=== PATIENT | male | born 1940 | race Caucasian/White ===

== ENCOUNTER 2016-11-17 03:12 | Observation (INO) | payer MEDICARE, BC ==
[~2016-11-17] VITALS: Ht 167.6 cm; Wt 118.0 kg
[2016-11-17] VITALS (8 sets, daily range): BP systolic 138–189; BP diastolic 64–89; PULSE 72–87; RESP 18–20; TEMP 97.2–97.7; O2SAT 97–99
[~2016-11-17 03:12] MED LIST: ALLO100T PO; APRE1TAB3; ASPI81TA81; ATOR40TA16 PO; CLOP75TA PO; FINA5TAB2 PO; FURO20TA PO; GABA300C5 PO; LEVO50TA4 PO; LISI-515 PO; METF500T PO; MOBI15TA PO; PANT40TA3 PO; PLAV75TA29 PO; POTA10TA8 PO; PROS5TAB PO; TAMS0.4C4 PO
[2016-11-17] MEDS ORDERED: SODIUM CHLORIDE 0.9% FLUSH 5 ML FLUSH IVF PRN ×2 (03:45→07:45)
--- NOTE | 2016-11-17 04:09 | RADHPO ---
EXAM DATE/TIME: 11/17/2016 03:50 [facility] COMPARISON: No previous studies available for comparison. INDICATIONS : Chest pains. MEDICAL HISTORY : Cardiovascular disease. SURGICAL HISTORY : Three cardiac stents placed in 2013 ENCOUNTER: Initial ACUITY: 3 days PAIN SCORE: 7/10 LOCATION: Right chest and lower ribs. FINDINGS: There is some ill-defined areas of infiltrate in the medial left lower lung. No focal consolidation. The right lung is clear. The heart is upper limits normal size. CONCLUSION: Non-consolidative infiltrate medial left lower lung. Jones Candelario MD on November 17, 2016 at 4:06 Board Certified Radiologist. This report was verified electronically.
--- NOTE | 2016-11-17 04:23 | PD ---
HPI Chief Complaint: Chest Pain Time Seen by Provider: 03:30 Travel History International Travel<30 days: No Contact w/Intl Traveler<30days: No Traveled to known affect area: No History of Present Illness HPI Is a 76-year-old man who presents emergency room complaining of right sided rib pain radiating into the back starting tonight. Patient has a history of CAD. He is pretty significant exercise intolerance and shortness of breath with exertion at baseline. He states he gets short of breath walking just across the room. This is been the same for some time and has been unchanged recently. Patient had normal health throughout the day yesterday. Starting yesterday evening started getting his right sided rib cage pain. No real clear aggravating or alleviating factors. He states he was severe enough that it kept him up and so he came to the emergency department today. Patient sees Dr. Salinas, he had a nuclear stress test done about 1 month ago that was reportedly negative. No history of blood clots. No other complaints. History Past Medical History Narrative Medical CAD, history of stents in 2013 Borderline diabetes mellitus BPH hyperlipidemia Hypothyroidism Psoriasis Gout Tetanus Vaccination: Unknown Influenza Vaccination: Yes Social History Alcohol Use: No Tobacco Use: No Allergies-Medications (Allergen,Severity, Reaction): Coded Allergies: No Known Allergies (Unverified , 11/17/16) Reported Meds & Prescriptions Reported Meds & Active Scripts Active Reported Otezla (Apremilast) 30 Mg Tab Tamsulosin (Tamsulosin HCl) 0.4 Mg Cap 0.4 Mg PO HS Mobic (Meloxicam) 15 Mg Tab 15 Mg PO DAILY Pantoprazole (Pantoprazole Sodium) 40 Mg Tab 40 Mg PO DAILY Allopurinol 100 Mg Tab 100 Mg PO DAILY Furosemide 20 Mg Tab 20 Mg PO DAILY Finasteride 5 Mg Tab 5 Mg PO DAILY Do not crush. Clopidogrel (Clopidogrel Bisulfate) 75 Mg Tab 75 Mg PO DAILY Gabapentin 300 Mg Cap 300 Mg PO BID Aspir-81 (Aspirin) 81 Mg Tabdr Potassium Chloride CR (Potassium Chloride) 10 Meq Tab 10 Meq PO DAILY Levothyroxine (Levothyroxine Sodium) 50 Mcg Tab 50 Mcg PO DAILY Atorvastatin (Atorvastatin Calcium) 40 Mg Tab 40 Mg PO HS Metformin (Metformin HCl) 500 Mg Tab 500 Mg PO DAILY With a meal Lisinopril 20 Mg Tab 20 Mg PO DAILY Review of Systems Except as stated in HPI: all other systems reviewed are Neg Physical Exam Narrative GENERAL: Well-appearing 76 year-old woman, no acute distress. SKIN: Warm and dry. HEAD: Atraumatic. Normocephalic. NECK: Trachea midline. No JVD. CARDIOVASCULAR: Regular rate and rhythm. No murmur appreciated. RESPIRATORY: No accessory muscle use. Clear to auscultation. Breath sounds equal bilaterally. GASTROINTESTINAL: Abdomen is obese and soft. There is no real right upper quadrant tenderness. Negative Bay's. MUSCULOSKELETAL: No obvious deformities. No edema. NEUROLOGICAL: Awake and alert. No obvious cranial nerve deficits. Motor grossly within normal limits. Normal speech. PSYCHIATRIC: Appropriate mood and affect; insight and judgment normal. Data Data Last Documented VS Vital Signs Date Time Temp Pulse Resp B/P Pulse Ox O2 Delivery O2 Flow Rate FiO2 11/17/16 03:40 87 18 98 Room Air 11/17/16 03:30 97.7 189/75 Orders Electrocardiogram (11/17/16 03:41) Complete Blood Count With Diff (11/17/16 03:41) Comprehensive Metabolic Panel (11/17/16 03:41) Magnesium (Mg) (11/17/16 03:41) Prothrombin Time / Inr (Pt) (11/17/16 03:41) Act Partial Throm Time (Ptt) (11/17/16 03:41) Troponin I (11/17/16 03:41) Lipase (11/17/16 03:41) Chest, Single Ap (11/17/16 03:41) Ecg Monitoring (11/17/16 03:41) Bilateral Bp Monitoring (11/17/16 03:41) Iv Access Insert/Monitor (11/17/16 03:41) Oximetry (11/17/16 03:41) Oxygen Administration (11/17/16 03:41) Sodium Chloride 0.9% Flush (Ns Flush) (11/17/16 03:45) Ed Poc Ultrasound (11/17/16 03:41) Us Abdomen Gallbladder (11/17/16 ) MDM Medical Decision Making Medical Screen Exam Complete: Yes Emergency Medical Condition: Yes Interpretation(s) My review of EKG: Sinus rhythm at a rate of 89, inferior Q waves, leftward axis , anterior septal Q waves, no definite evidence of acute ischemia. Differential Diagnosis Chest pain, ACS, hepatobiliary disease, shingles, other Narrative Course Medical decision making INITIAL: 76 year-old woman who presents to the emergency department complaining of right sided chest wall pain, the costal margin, radiating through the back. Symptoms came on tonight. Somewhat suggestive of hepatobiliary disease. I tend to the point of care ultrasound was able to see anything. We'll check labs , ultrasound gallbladder, x-ray, EKG, likely admission for serial cardiac enzymes. Recent stress test was negative. Procedures Procedure Narrative Point of care ultrasound: Focus transabdominal ultrasounds perform immediate the bedside to evaluate for possible hepatobiliary disease. Is unable to obtain any kind of adequate views. Dewayne Morales MD Nov 17, 2016 04:23
[2016-11-17 04:30] LABS: AUTOMATED NEUTROPHIL # 3.8 TH/MM3 (1.8-7.7); BASOPHIL % 0.6 % (0.0-2.0); EOSINOPHIL # 0.2 TH/MM3 (0-0.4); EOSINOPHIL % 3.2 % (0.0-4.0); HEMATOCRIT 42.6 % (39.0-51.0); HEMO FLAGS DIFF FINAL; LYMPH % 29.8 % (9.0-44.0); MEAN CORPUSCULAR HEMOGLOBIN 29.4 PG (27.0-34.0); MONO % 11.4 % (0.0-8.0); PLATELET COUNT 170 TH/MM3 (150-450); RED BLOOD COUNT 4.78 MIL/MM3 (4.50-5.90); RED CELL DISTRIBUTION WIDTH 13.2 % (11.6-17.2); WHITE BLOOD COUNT 6.8 TH/MM3 (4.0-11.0)
[2016-11-17 04:32] LABS: CHLORIDE 110 MEQ/L (98-107); POTASSIUM 4.3 MEQ/L (3.5-5.1); SODIUM (NA) 143 MEQ/L (136-145)
[2016-11-17 04:37] LABS: ANION GAP 8 MEQ/L (5-15); APTT (PATIENT) 28.3 SEC (24.3-30.1); BICARBONATE 24.7 MEQ/L (21.0-32.0); BLOOD UREA NITROGEN 25 MG/DL (7-18); MAGNESIUM 1.8 MG/DL (1.5-2.5); PROTHROMBIN TIME - PATIENT 10.7 SEC (9.8-11.6)
[2016-11-17 04:39] LABS: ALT (GPT) 27 U/L (12-78)
[2016-11-17 04:40] LABS: AST (GOT) 20 U/L (15-37); GLOMERULAR FILTRATION RATE 45 ML/MIN (>89)
[2016-11-17 04:41] LABS: TOTAL BILIRUBIN ADULT 0.5 MG/DL (0.2-1.0)
[2016-11-17 04:43] LABS: ALKALINE PHOSPHATASE 71 U/L (45-117)
[2016-11-17] MEDS ORDERED: NITROGLYCERIN 0.4 MG SL 25 TABS/BTL SL ONE (06:00)
[2016-11-17] MEDS ORDERED: MORPHINE SULFATE 4 MG/ML INJ IV PUSH ONE (06:00)
--- NOTE | 2016-11-17 07:00 | RADHPO ---
EXAM DATE/TIME: 11/17/2016 06:08 [facility] COMPARISON: No previous studies available for comparison. INDICATIONS : Right upper quadrant pain. MEDICAL HISTORY : Hypertension. Gastroesophageal reflux disease. Thyroid disease. Coronary artery disease. Peripheral vascular disease. Arthritis. Diabetes. SURGICAL HISTORY : Spinal surgery. Coronary stent. ENCOUNTER: Initial ACUITY: 1 day PAIN SCORE: 3/10 LOCATION: Right upper quadrant TECHNOLOGIST IMPRESSION: MEASUREMENTS: LIVER: 15.6 cm length COMMON DUCT: 5 mm RIGHT KIDNEY: 13.8 x 6.2 x 5.0 cm FINDINGS: LIVER: Homogeneous echotexture without focal lesion or ductal dilatation. COMMON DUCT: No intraluminal mass or stone visualized. GALLBLADDER: Contains no stones, demonstrates no wall thickening or pericholecystic fluid. PANCREAS: The visualized portions are within normal limits. RIGHT KIDNEY: No evidence of hydronephrosis, stone, or mass. CONCLUSION: No gallstones seen. Normal dimension common hepatic duct. Jones Candelario MD on November 17, 2016 at 6:58 Board Certified Radiologist. This report was verified electronically.
[2016-11-17] MEDS ORDERED: ACETAMINOPHEN 500 MG CPLT PO PRN (07:45)
[2016-11-17] MEDS ORDERED: ONDANSETRON HCL 4 MG/2 ML VIAL IV PRN (07:45)
[2016-11-17] MEDS ORDERED: NITROGLYCERIN 0.4 MG SL 25 TABS/BTL SL PRN (07:45)
[2016-11-17] MEDS ORDERED: MORPHINE SULFATE 4 MG/ML INJ IV PRN (07:45)
[2016-11-17] MEDS ORDERED: ACETAMINOPHEN/HYDROcodone 325 MG/7.5 MG TAB PO PRN (07:45)
--- NOTE | 2016-11-17 08:17 | HHI.HP ---
[facility] Jackson Alberts DO Admission Diagnosis chest pain Diagnoses: (1) Atypical chest pain Diagnosis: Principal (2) Hypertensive urgency Diagnosis: Principal (3) Renal failure Diagnosis: Principal Chief Complaint: chest pain Travel History International Travel<30 Days: No Contact w/Intl Traveler <30 Da: No Traveled to Known Affected Are: No History of Present Illness 76-year-old male with history of coronary artery disease s/p stents in 2013, hypertension, hyperlipidemia, borderline diabetes mellitus, hypothyroidism, BPH, gout, arthritis, psoriasis is admitted to chest pain center. Patient states that he initially started to have pain across the entire anterior chest on Saturday but it was intermittent at that time. It started when he had just gotten up from bed. He states that yesterday at 4:30 PM when he was lying down he started to experience sharp pain starting over the right scapula radiating into the right chest. He states it has been constant since that time progressively worsening which prompted him to come to the ED. Patient states that his pain at worst was a 10/10. He does have a Nitrostat prescription at home but did not take this at home. He did receive nitroglycerin in the ED and it is documented that it relieved his pain from a 7 to a 3 but the patient does not recall receiving nitroglycerin. He states he did have relief with morphine. Pain is currently a 4/10. He denies any diaphoresis, new numbness/tingling, or pain radiating to the neck/jaws/arms. He denies any pleuritic pain. He admits to chronic shortness of breath on exertion as well as chronic leg swelling but denies leg swelling being any worse than normal. He denies any current shortness of breath although his states he was breathing heavy early this morning. Denies orthopnea or PND. Denies symptoms occurring after eating. He denies any fevers or chills, cold or cough symptoms, abdominal pain, nausea, or vomiting. Denies any history of DVT or PE, recent sedentary travel, trauma/surgery/hospitalization in the last 12 weeks, hemoptysis, or recent immobilization of the legs. Patient 's water taxi captain is Dr. Salinas and he had a nuclear stress test done approximately one month ago which was negative. Review of Systems Constitutional: DENIES: Diaphoretic episodes, Fever, Chills, Dizziness Eyes: DENIES: Blurred vision Ears, nose, mouth, throat: DENIES: Throat pain, Ear Pain, Running Nose Respiratory: DENIES: Cough Cardiovascular: COMPLAINS OF: Chest pain, Dyspnea on Exertion (chronic), Lower Extremity Edema (chronic), DENIES: PND, Orthopnea Gastrointestinal: DENIES: Abdominal pain, Nausea, Vomiting Genitourinary: DENIES: Urinary frequency, Dysuria Musculoskeletal: COMPLAINS OF: Back pain, DENIES: Neck pain Integumentary: COMPLAINS OF: Rash (psoriasis) Neurologic: DENIES: Headache, Paresthesias (no new; chronic in feet) Past Family Social History Past Medical History CAD with stents Borderline diabetes mellitus Hyperlipidemia Hypertension Hypothyroidism BPH Arthritis Psoriasis Past Surgical History Total of 3 coronary artery stents placed in 2013. Surgery lumbar spine 2001, spinal stenosis Reported Medications Otezla (Apremilast) 30 Mg Tab 30 Mg PO BID Aspir-81 (Aspirin) 81 Mg Tabdr 81 Mg PO DAILY Tamsulosin (Tamsulosin HCl) 0.4 Mg Cap 0.4 Mg PO HS Mobic (Meloxicam) 15 Mg Tab 15 Mg PO DAILY Pantoprazole (Pantoprazole Sodium) 40 Mg Tab 40 Mg PO DAILY Allopurinol 100 Mg Tab 100 Mg PO DAILY Furosemide 20 Mg Tab 20 Mg PO DAILY Finasteride 5 Mg Tab 5 Mg PO DAILY Do not crush. Clopidogrel (Clopidogrel Bisulfate) 75 Mg Tab 75 Mg PO DAILY Gabapentin 300 Mg Cap 300 Mg PO BID Potassium Chloride CR (Potassium Chloride) 10 Meq Tab 10 Meq PO DAILY Levothyroxine (Levothyroxine Sodium) 50 Mcg Tab 50 Mcg PO DAILY Atorvastatin (Atorvastatin Calcium) 40 Mg Tab 40 Mg PO HS Metformin (Metformin HCl) 500 Mg Tab 500 Mg PO DAILY With a meal Lisinopril 20 Mg Tab 20 Mg PO DAILY Allergies: Coded Allergies: No Known Allergies (Unverified , 11/17/16) Family History Brother: CABG in his 50s with "12-13" coronary artery stents; still living at age 60. Brother: at age 38 of pulmonary embolus. Mother: Gallbladder issues, stroke. Social History Occasional alcohol use. Denies any history of cigarette smoking. Denies any history of illicit drug use. Physical Exam Vital Signs Vital Signs Date Time Temp Pulse Resp B/P Pulse Ox O2 Delivery O2 Flow Rate FiO2 11/17/16 06:57 79 20 156/78 98 Room Air 11/17/16 06:53 79 98 Room Air 11/17/16 06:13 74 18 138/78 97 Room Air 11/17/16 05:36 78 18 150/75 97 Room Air 11/17/16 04:16 148/64 161/76 11/17/16 03:40 87 18 98 Room Air 11/17/16 03:30 97.7 87 18 189/75 98 Physical Exam GENERAL: This is a well-nourished, well-developed patient, in no apparent distress. SKIN: Psoriatic rash over the umbilicus and abdomen. Skin tags over the right lateral chest but no evidence of vesicular lesions. HEAD: Atraumatic. Normocephalic. EYES: No scleral icterus. y patent. NECK: Trachea midline. No JVD. CHEST: Reproducible tenderness over the right anterior chest and muscles overlying the right scapula. CARDIOVASCULAR: Regular rate and rhythm without murmurs, gallops, or rubs. RESPIRATORY: Clear to auscultation. Breath sounds equal bilaterally. No wheezes , rales, or rhonchi. GASTROINTESTINAL: Normoactive bowel sounds LLQ. Abdomen soft, non-tender. Negative Bay's sign. No guarding. MUSCULOSKELETAL: Trace ankle edema bilaterally, no pitting. NEUROLOGICAL: Awake and alert. Normal speech. PSYCHIATRIC: Normal mood and affect. Insight and judgement normal. Laboratory Laboratory Tests Test 11/17/16 04:00 White Blood Count 6.8 Red Blood Count 4.78 Hemoglobin 14.1 Hematocrit 42.6 Mean Corpuscular Volume 89.0 Mean Corpuscular Hemoglobin 29.4 Mean Corpuscular Hemoglobin 33.0 Concent Red Cell Distribution Width 13.2 Platelet Count 170 Mean Platelet Volume 8.6 Neutrophils (%) (Auto) 55.0 Lymphocytes (%) (Auto) 29.8 Monocytes (%) (Auto) 11.4 Eosinophils (%) (Auto) 3.2 Basophils (%) (Auto) 0.6 Neutrophils # (Auto) 3.8 Lymphocytes # (Auto) 2.0 Monocytes # (Auto) 0.8 Eosinophils # (Auto) 0.2 Basophils # (Auto) 0.0 CBC Comment DIFF FINAL Differential Comment Prothrombin Time 10.7 Prothromb Time International 1.0 Ratio Activated Partial 28.3 Thromboplast Time Sodium Level 143 Potassium Level 4.3 Chloride Level 110 Carbon Dioxide Level 24.7 Anion Gap 8 Blood Urea Nitrogen 25 Creatinine 1.50 Estimat Glomerular Filtration 45 Rate Random Glucose 115 Calcium Level 8.7 Magnesium Level 1.8 Total Bilirubin 0.5 Aspartate Amino Transf 20 (AST/SGOT) Alanine Aminotransferase 27 (ALT/SGPT) Alkaline Phosphatase 71 Troponin I LESS THAN 0.02 Total Protein 7.2 Albumin 3.2 Lipase 94 Result Diagram: 11/17/1639911/17/16399 Imaging Chest x-ray with ill-defined areas of infiltrate in the medial left lower long, but no focal consolidation. Right lung is clear. Heart size at the upper limits of normal. Gallbladder ultrasound normal. Assessment and Plan Assessment and Plan 76-year-old male with: Atypical chest pain: Initially had pain across the entire anterior chest on Saturday which was intermittent but started to have constant progressively worsening sharp pain radiating from the right scapula to the right chest yesterday still present although improved after morphine. EKGs 2 personally interpreted with normal sinus rhythm and poor R-wave progression; no evidence of acute ischemia. Troponin less than 0.02. Lipase normal. GB US negative. Chest x-ray personally interpreted and there is an oddly defined area in the left lower lobe which the radiologist states is an infiltrate but no focal consolidation. Lung exam is benign. Patient is afebrile and has no report of recent respiratory symptoms. I doubt this is a pneumonia. Patient/ was informed of finding. Cardiomegaly on chest x-ray. BNP only mild elevated at 161. No evidence of acute heart failure. -Although patient does not recall he did receive nitroglycerin with some relief in the ED. Continue Nitroglycerin/[employer]/morphine as needed. -Continue 81 mg daily aspirin -Patient does have notable reproducible tenderness over the right anterior chest and muscles overlying right scapula similar to the pain he was feeling. Patient had a nuclear stress test one month ago. Pain likely musculoskeletal. Discussed with Dr. Hernandez who has seen patient, recommends dose of Tylenol. Will rule out ACS, and if negative will have patient f/u with Dr. Salinas outpatient. Hypertensive urgency: BP 189/75 on arrival. His blood pressure has remained persistently elevated. -Hold lisinopril due to renal failure. Dose of clonidine now with clonidine as needed for SBP >160 or DBP >90. -Monitor Renal failure: BUN/creatinine 25/1.5. No previous labs for comparison. does not recall the patient having any history of chronic kidney disease. -Will hydrate the patient cautiously with IV normal saline @ 84 mL/hr. -Repeat BMP later this morning. Borderline diabetes: -Hold metformin for now. -Bedside Accu-Cheks with low dose Sliding scale insulin Other chronic medical problems include hypothyroidism, hyperlipidemia, BPH, psoriasis, gout: -Continue home medications. Hold allopurinol due to renal failure. DVT prevention TEDs/SCDs Discussed Condition With Dr. Hernandez Attending Statement The exam, history, and the medical decision-making described in the above note were completed with my assistance as the dictating practitioner. I attest that I had a [id number] encounter with the patient on the same day, and personally performed all of the history, exam, or medical decision making. I reviewed and agree with the plan. Patient appears to have reproducible musculoskeletal chest discomfort. This atypical chest discomfort and patient will need to follow-up with his primary care doctor. Continue with Tylenol as needed for pain. Recent stress test done by water taxi captain as an outpatient. Discussed with patient and spouse Discharge home Activity and she could Diet heart healthy Zora Vick Nov 17, 2016 08:17 Gloria Hernandez MD Nov 17, 2016 11:51
[2016-11-17] MEDS ORDERED: APRE1TAB3 PO (08:28)
[2016-11-17] MEDS ORDERED: ASPI81TA81 PO (08:28)
[2016-11-17] MEDS ORDERED: cloNIDine HCL 0.1 MG TAB PO PRN (08:45)
[2016-11-17] MEDS ORDERED: SODIUM CHLOR 0.9% 1000 ML INJ 1,000 ML IV SCH (09:00)
[2016-11-17] MEDS ORDERED: POTASSIUM CHLORIDE 10 MEQ CONTROLLED RELEASE TAB PO SCH (09:00)
[2016-11-17] MEDS ORDERED: LISINOPRIL 20 MG TAB PO SCH (09:00)
[2016-11-17] MEDS ORDERED: SODIUM CHLORIDE 0.9% FLUSH 5 ML FLUSH IVF SCH (09:00)
[2016-11-17] MEDS ORDERED: APREMILAST 30 MG PO SCH (09:00)
[2016-11-17] MEDS ORDERED: GABAPENTIN 300 MG CAP PO SCH (09:00)
[2016-11-17] MEDS ORDERED: ASPIRIN EC 81 MG TABEC PO SCH (09:00)
[2016-11-17] MEDS ORDERED: FINASTERIDE 5 MG TAB PO SCH (09:00)
[2016-11-17] MEDS ORDERED: CLOPIDOGREL 75 MG TAB PO SCH (09:00)
[2016-11-17] MEDS ORDERED: LEVOTHYROXINE SODIUM 50 MCG TAB PO SCH (09:00)
[2016-11-17] MEDS ORDERED: PANTOPRAZOLE SOD 40 MG DELAYED RELEASE TAB PO SCH (09:00)
[2016-11-17] MEDS ORDERED: cloNIDine HCL 0.1 MG TAB PO ONE (09:00)
[2016-11-17] MEDS ORDERED: FUROSEMIDE 20 MG TAB PO SCH (09:00)
[2016-11-17] MEDS ORDERED: ACETAMINOPHEN 325 MG TAB PO ONE (09:45)
[2016-11-17 10:00] LABS: CREATINE KINASE 234 U/L (39-308)
[2016-11-17 10:17] LABS: CKMB 1.9 NG/ML (0.5-3.6)
[2016-11-17 11:17] LABS: CHLORIDE 110 MEQ/L (98-107); POTASSIUM 4.3 MEQ/L (3.5-5.1); SODIUM (NA) 145 MEQ/L (136-145)
[2016-11-17 11:21] LABS: ANION GAP 10 MEQ/L (5-15); BICARBONATE 25.4 MEQ/L (21.0-32.0); BLOOD UREA NITROGEN 21 MG/DL (7-18)
[2016-11-17 11:24] LABS: GLOMERULAR FILTRATION RATE 53 ML/MIN (>89)
[2016-11-17 11:27] LABS: CREATINE KINASE 224 U/L (39-308)
[2016-11-17 11:39] LABS: CKMB 2.2 NG/ML (0.5-3.6)
[2016-11-17] MEDS ORDERED: ACET500T3 PO (11:44)
--- NOTE | 2016-11-17 11:45 | HHI.DCPOC ---
Discharge Care Plan Diagnosis: (1) Atypical chest pain (2) Hypertensive urgency Goals to Promote Your Health * To prevent worsening of your condition and complications * To maintain your health at the optimal level Directions to Meet Your Goals Take your medications as prescribed Follow your dietary instruction Follow activity as directed Keep your appointments as scheduled Take your immunizations and boosters as scheduled If your symptoms worsen call your PCP, if no PCP go to Urgent Care Center or Emergency Room Smoking is Dangerous to Your Health. Avoid second hand smoke Call the 24-hour hour crisis hotline for domestic abuse at Gloria Hernandez MD Nov 17, 2016 11:45
--- NOTE | 2016-11-17 14:18 | EKG ---
Date Performed: 11/17/2016 Time Performed: 04:39:12 PTAGE: 76 years EKG: Sinus rhythm . Poor R wave progression across precordium Minor nonspecific T wave change Since previous tracing, n o significant change noted Abnormal ECG PREVIOUS TRACING : 11/17/16 DOCTOR: Sd Shi Interpretating Date/Time 11/17/2016 14:17:58
--- NOTE | 2016-11-17 14:18 | EKG ---
Date Performed: 11/17/2016 Time Performed: 03:17:36 PTAGE: 76 years EKG: Sinus rhythm Poor R wave progression across precordium Minor nonspecific T wave change Abnormal ECG NO PREVIOUS TRACING DOCTOR: Sd Shi Interpretating Date/Time 11/17/2016 14:17:17
[2016-11-17] MEDS ORDERED: ATORVASTATIN 40 MG TAB PO SCH (21:00)
[2016-11-17] MEDS ORDERED: TAMSULOSIN HCL 0.4 MG CAP PO SCH (21:00)
--- NOTE | 2016-11-18 19:02 | EKG ---
Date Performed: 11/17/2016 Time Performed: 08:37:06 PTAGE: 76 years EKG: Sinus rhythm . Poor R wave progression - probable normal variant Compared to prior tracing no significant change B orderline ECG PREVIOUS TRACING : 11/17/2016 04.39 DOCTOR: Sd Shi Interpretating Date/Time 11/18/2016 19:02:02
--- NOTE | 2016-11-18 19:02 | EKG ---
Date Performed: 11/17/2016 Time Performed: 10:50:44 PTAGE: 76 years EKG: Sinus rhythm . Poor R wave progression - probable normal variant Compared to prior tracing no significant change B orderline ECG PREVIOUS TRACING : 11/17/2016 08.37 DOCTOR: Sd Shi Interpretating Date/Time 11/18/2016 19:02:23
== END 2016-11-17 13:14 | disposition home or self-care (01) ==
LOC: PHED 03:12 → PHEDA 06:45 → PH3B 07:37
PROVIDERS: ADMIT Hospitalist; ATTEND Hospitalist
DX: R07.89 Other chest pain (principal); I16.0 Hypertensive urgency; I12.9 Hypertensive chronic kidney disease with stage 1 through stage 4 chronic kidney disease, or unspecified chronic kidney disease; N18.9 Chronic kidney disease, unspecified; R73.03 Prediabetes; E78.5 Hyperlipidemia, unspecified; E03.9 Hypothyroidism, unspecified; N40.0 Benign prostatic hyperplasia without lower urinary tract symptoms; M19.90 Unspecified osteoarthritis, unspecified site; M10.9 Gout, unspecified; L40.9 Psoriasis, unspecified; I25.10 Atherosclerotic heart disease of native coronary artery without angina pectoris; Z95.5 Presence of coronary angioplasty implant and graft; Z79.84 Long term (current) use of oral hypoglycemic drugs; Z79.82 Long term (current) use of aspirin; Z79.02 Long term (current) use of antithrombotics/antiplatelets
CPT/HCPCS: 71010; 76705; 80053; 82550; 82552; 83690; 83735; 83880; 84484; 85025; 85610; 85730; 93005; 96374; 99285; G0378; J2270; J7030; 80048

== ENCOUNTER 2016-11-19 05:08 | Emergency (ER) | payer MEDICARE, BC ==
[~2016-11-19] VITALS: Ht 167.6 cm; Wt 97.7 kg
[~2016-11-19 05:08] MED LIST changes: +ACET500T3 PO; +APRE1TAB3 PO; +ASPI81TA81 PO
[2016-11-19 05:13] VITALS: O2SAT 96
[2016-11-19] MEDS ORDERED: SODIUM CHLORIDE 0.9% FLUSH 5 ML FLUSH IVF PRN (05:15)
[2016-11-19 05:27] LABS: BASOPHIL % 0.5 % (0.0-2.0); EOSINOPHIL # 0.2 TH/MM3 (0-0.4); EOSINOPHIL % 2.6 % (0.0-4.0); HEMATOCRIT 43.5 % (39.0-51.0); HEMO FLAGS DIFF FINAL; LYMPH % 26.9 % (9.0-44.0); LYMPHOCYTE # 1.9 TH/MM3 (1.0-4.8); MEAN CELL VOLUME 88.7 FL (80.0-100.0); MEAN CORPUSCULAR HEMOGLOBIN 29.5 PG (27.0-34.0); MEAN CORPUSCULAR HGB CONC 33.3 % (32.0-36.0); MONO % 11.7 % (0.0-8.0); NEUT % 58.3 % (16.0-70.0); PLATELET COUNT 161 TH/MM3 (150-450); RED CELL DISTRIBUTION WIDTH 12.8 % (11.6-17.2); WHITE BLOOD COUNT 6.9 TH/MM3 (4.0-11.0)
[2016-11-19 05:33] VITALS: BP 198/85; PULSE 85; TEMP 98.3
[2016-11-19 05:36] LABS: CHLORIDE 108 MEQ/L (98-107); POTASSIUM 4.3 MEQ/L (3.5-5.1); SODIUM (NA) 141 MEQ/L (136-145)
[2016-11-19 05:42] LABS: ANION GAP 10 MEQ/L (5-15); BICARBONATE 22.6 MEQ/L (21.0-32.0); BLOOD UREA NITROGEN 25 MG/DL (7-18)
[2016-11-19 05:43] LABS: MAGNESIUM 1.8 MG/DL (1.5-2.5)
[2016-11-19 05:45] LABS: ALT (GPT) 25 U/L (12-78); AST (GOT) 20 U/L (15-37); GLOMERULAR FILTRATION RATE 49 ML/MIN (>89)
[2016-11-19 05:47] LABS: TOTAL BILIRUBIN ADULT 0.5 MG/DL (0.2-1.0)
[2016-11-19 05:48] LABS: ALKALINE PHOSPHATASE 73 U/L (45-117); APTT (PATIENT) 28.5 SEC (24.3-30.1); CREATINE KINASE 221 U/L (39-308); PROTHROMBIN TIME - PATIENT 10.7 SEC (9.8-11.6)
[2016-11-19 06:00] LABS: CKMB 2.1 NG/ML (0.5-3.6)
[2016-11-19] MEDS ORDERED: HYDROmorphone HCL PF 1 MG/ML VIAL IV PUSH ONE (06:00)
[2016-11-19] MEDS ORDERED: FAMCICLOVIR 500 MG TAB PO ONE (06:00)
[2016-11-19] MEDS ORDERED: PERC7.5T13 PO (06:07)
[2016-11-19] MEDS ORDERED: FAMC500T PO (06:07)
[2016-11-19 06:08] VITALS: BP 142/74; PULSE 77; O2SAT 97
--- NOTE | 2016-11-19 06:08 | PD ---
HPI Chief Complaint: Respiratory Distress Time Seen by Provider: 05:13 Travel History International Travel<30 days: No Contact w/Intl Traveler<30days: No Traveled to known affect area: No History of Present Illness HPI The patient is 76 years old and was seen here 2 days ago and admitted for an observation at the chest pain center. The workup was unremarkable and the patient was discharged home. He reports near complete resolution of pain after receiving morphine. The pain gradually returned and has been constant and severe since he was discharged yesterday. He tried Tylenol which did not help. A lidocaine patch did not help. There is no pleuritic pain however palpation in the region of the scapula and right anterior chest wall worsens the pain. He denies any recent injury or excessive use. He's had no fever. PFSH Past Medical History Arthritis: Yes Cardiovascular Problems: Yes High Cholesterol: Yes Diabetes: Yes Patient Takes Glucophage: Yes Diminished Hearing: No GERD: Yes Gout: Yes Genitourinary: Yes (prostate) Hypertension: Yes Thyroid Disease: Yes Past Surgical History Cardiac Surgery: Yes (2013) Social History Alcohol Use: Yes (social ocassional) Tobacco Use: No Substance Use: No Allergies-Medications (Allergen,Severity, Reaction): Coded Allergies: No Known Allergies (Unverified , 11/19/16) Reported Meds & Prescriptions Reported Meds & Active Scripts Active Acetaminophen 500 Mg Tab 500 Mg PO Q4H PRN Otezla (Apremilast) 30 Mg Tab 30 Mg PO BID Aspir-81 (Aspirin) 81 Mg Tabdr 81 Mg PO DAILY 30 Days Reported Tamsulosin (Tamsulosin HCl) 0.4 Mg Cap 0.4 Mg PO HS Mobic (Meloxicam) 15 Mg Tab 15 Mg PO DAILY Pantoprazole (Pantoprazole Sodium) 40 Mg Tab 40 Mg PO DAILY Allopurinol 100 Mg Tab 100 Mg PO DAILY Furosemide 20 Mg Tab 20 Mg PO DAILY Finasteride 5 Mg Tab 5 Mg PO DAILY Do not crush. Clopidogrel (Clopidogrel Bisulfate) 75 Mg Tab 75 Mg PO DAILY Gabapentin 300 Mg Cap 300 Mg PO BID Potassium Chloride CR (Potassium Chloride) 10 Meq Tab 10 Meq PO DAILY Levothyroxine (Levothyroxine Sodium) 50 Mcg Tab 50 Mcg PO DAILY Atorvastatin (Atorvastatin Calcium) 40 Mg Tab 40 Mg PO HS Metformin (Metformin HCl) 500 Mg Tab 500 Mg PO DAILY With a meal Lisinopril 20 Mg Tab 20 Mg PO DAILY Review of Systems Except as stated in HPI: all other systems reviewed are Neg General / Constitutional: No: Fever, Chills Skin: Positive Rash Physical Exam Narrative GENERAL: 76-year-old male pleasant well-nourished well-developed SKIN: Warm and dry. Patient has a vesicular herpes zoster rash that is the cause of his pain in the T1-2 dermatomal distribution on the right side. HEAD: Atraumatic. Normocephalic. EYES: Pupils equal and round. No scleral icterus. No injection or drainage. ENT: No nasal bleeding or discharge. Mucous membranes pink and moist. NECK: Trachea midline. No JVD. CARDIOVASCULAR: Regular rate and rhythm. No murmur appreciated. RESPIRATORY: No accessory muscle use. Clear to auscultation. Breath sounds equal bilaterally. GASTROINTESTINAL: Abdomen soft, non-tender, nondistended. Hepatic and splenic margins not palpable. MUSCULOSKELETAL: No obvious deformities. No clubbing. No cyanosis. No edema. NEUROLOGICAL: Awake and alert. No obvious cranial nerve deficits. Motor grossly within normal limits. Normal speech. PSYCHIATRIC: Appropriate mood and affect; insight and judgment normal. Data Data Last Documented VS Vital Signs Date Time Temp Pulse Resp B/P Pulse Ox O2 Delivery O2 Flow Rate FiO2 11/19/16 05:33 98.3 85 198/85 11/19/16 05:17 97 Nasal Cannula 2 RR approx 30 Orders Electrocardiogram (11/19/16 05:14) Ckmb (Isoenzyme) Profile (11/19/16 05:14) Complete Blood Count With Diff (11/19/16 05:14) Comprehensive Metabolic Panel (11/19/16 05:14) Magnesium (Mg) (11/19/16 05:14) Prothrombin Time / Inr (Pt) (11/19/16 05:14) Act Partial Throm Time (Ptt) (11/19/16 05:14) Troponin I (11/19/16 05:14) Lipase (11/19/16 05:14) Chest, Single Ap (11/19/16 05:14) Ecg Monitoring (11/19/16 05:14) Bilateral Bp Monitoring (11/19/16 05:14) Iv Access Insert/Monitor (11/19/16 05:14) Oximetry (11/19/16 05:14) Oxygen Administration (11/19/16 05:14) Sodium Chloride 0.9% Flush (Ns Flush) (11/19/16 05:15) CKMB (11/19/16 05:19) CKMB% (11/19/16 05:19) Hydromorphone Pf Inj (Dilaudid Pf Inj) (11/19/16 06:00) Labs Laboratory Tests Test 11/19/16 05:19 White Blood Count 6.9 TH/MM3 Red Blood Count 4.90 MIL/MM3 Hemoglobin 14.4 GM/DL Hematocrit 43.5 % Mean Corpuscular Volume 88.7 FL Mean Corpuscular Hemoglobin 29.5 PG Mean Corpuscular Hemoglobin 33.3 % Concent Red Cell Distribution Width 12.8 % Platelet Count 161 TH/MM3 Mean Platelet Volume 8.0 FL Neutrophils (%) (Auto) 58.3 % Lymphocytes (%) (Auto) 26.9 % Monocytes (%) (Auto) 11.7 % Eosinophils (%) (Auto) 2.6 % Basophils (%) (Auto) 0.5 % Neutrophils # (Auto) 4.0 TH/MM3 Lymphocytes # (Auto) 1.9 TH/MM3 Monocytes # (Auto) 0.8 TH/MM3 Eosinophils # (Auto) 0.2 TH/MM3 Basophils # (Auto) 0.0 TH/MM3 CBC Comment DIFF FINAL Differential Comment Prothrombin Time 10.7 SEC Prothromb Time International 1.0 RATIO Ratio Activated Partial 28.5 SEC Thromboplast Time Sodium Level 141 MEQ/L Potassium Level 4.3 MEQ/L Chloride Level 108 MEQ/L Carbon Dioxide Level 22.6 MEQ/L Anion Gap 10 MEQ/L Blood Urea Nitrogen 25 MG/DL Creatinine 1.40 MG/DL Estimat Glomerular Filtration 49 ML/MIN Rate Random Glucose 116 MG/DL Calcium Level 8.5 MG/DL Magnesium Level 1.8 MG/DL Total Bilirubin 0.5 MG/DL Aspartate Amino Transf 20 U/L (AST/SGOT) Alanine Aminotransferase 25 U/L (ALT/SGPT) Alkaline Phosphatase 73 U/L Total Creatine Kinase 221 U/L Troponin I LESS THAN 0.02 NG/ML Total Protein 7.4 GM/DL Albumin 3.4 GM/DL Lipase 93 U/L MDM Medical Decision Making Medical Screen Exam Complete: Yes Emergency Medical Condition: Yes Medical Record Reviewed: Yes Differential Diagnosis NSTEMI, unstable angina, coronary vasospasm, PE, PTX, aortic dissection, pericarditis, myocarditis, endocarditis, PNA, esophageal disease, aneurysm, musculoskeletal etiologies, anxiety, cocaine/sympathomimetic abuse Narrative Course EKG reveals sinus rhythm with a rate of 81 normal axis intervals no ischemic injury pattern CBC & BMP Diagram 11/19/16 05:19 Tn < 0.02 Lipase 93 LFTs normal INR 1.0 The patient has herpes zoster. We'll provide a course of famciclovir for 7 days 500 mg 3 times a day. Percocet for pain control. Patient was advised specifically about the side effects of opioid pain medication. Follow up with Dr Alberts this week. Diagnosis Primary Impression: Herpes zoster dermatitis Referrals: Jackson Alberts DO 2 days Additional Instructions: You have a choice when it comes to health care, and we are glad that you chose [facility]. Hopefully, we have met your expectations on today's visit. You are welcome to return to [facility] at any time, as we are committed to meeting the health care needs of our community. Med/Other Pt SpecificInfo: Prescription(s) given Scripts Famciclovir 500 Mg [id number] Mg PO TID 7 Days Ref 0 Prov:Krystian Barajas MD 11/19/16 Oxycodone-Acetaminophen (Percocet)7.5-325 mg Tab1 Tab PO Q6H PRN (PAIN SCALE 6 TO 10) #20 TAB Ref 0 Prov:Krystian Barajas MD 11/19/16 Disposition: 01 DISCHARGE HOME Condition: Stable Krystian Barajas MD Nov 19, 2016 06:08
[2016-11-19] MEDS ORDERED: ACYC800T PO (06:15)
--- NOTE | 2016-11-19 06:17 | RADHPO ---
EXAM DATE/TIME: 11/19/2016 06:06 [facility] COMPARISON: CHEST SINGLE AP, November 17, 2016, 3:50. INDICATIONS : Chest pain. MEDICAL HISTORY : Hypertension. Gastroesophageal reflux disease. Diabetes mellitus type II. SURGICAL HISTORY : Coronary artery stent. ENCOUNTER: Initial ACUITY: 1 day PAIN SCORE: 7/10 LOCATION: Bilateral chest FINDINGS: Single AP view of the chest. The lungs are clear. Mild cardiac silhouette enlargement unchanged. No e vidence of pleural effusion or pneumothorax. CONCLUSION: Chronic cardiac silhouette enlargement. No acute cardiopulmonary disease identifi ed. Donte Angeles MD on November 19, 2016 at 6:15 Board Certified Radiologist. This report was verified electronically.
[2016-11-19] MEDS ORDERED: oxyCODONE/ACETAMINOPHEN 7.5 MG/325 MG TAB PO ONE (06:30)
--- NOTE | 2016-11-19 15:03 | EKG ---
Date Performed: 11/19/2016 Time Performed: 05:19:32 PTAGE: 76 years EKG: Sinus rhythm Possible anterior infarct - age undetermined Lateral T wave changes are nonspecific Abnormal ECG Com pared to prior tracing no significant change PREVIOUS TRACING : 11/17/2016 10.50 DOCTOR: Yumiko Montague Interpretating Date/Time 11/19/2016 14:55:25
== END 2016-11-19 07:12 | disposition home or self-care (01) ==
LOC: PHED 05:08
DX: B02.9 Zoster without complications (principal); E78.00 Pure hypercholesterolemia, unspecified; E11.9 Type 2 diabetes mellitus without complications; I10 Essential (primary) hypertension
CPT/HCPCS: 71010; 80053; 82550; 82552; 83690; 83735; 84484; 85025; 85610; 85730; 93005; 96374; 99284; J1170

== ENCOUNTER 2017-06-02 03:50 | Observation (INO) | payer MEDICARE, BC ==
[~2017-06-02] VITALS: Ht 167.6 cm; Wt 117.1 kg
[2017-06-02] VITALS (27 sets, daily range): BP systolic 79–163; BP diastolic 40–80; PULSE 53–104; RESP 14–32; TEMP 96.9–97.6; O2SAT 67–100
[~2017-06-02 03:50] MED LIST changes: +ACYC800T PO; -APRE1TAB3; -ASPI81TA81; +PERC7.5T13 PO; -PLAV75TA29 PO; -PROS5TAB PO
[2017-06-02] MEDS ORDERED: SODIUM CHLORIDE 0.9% FLUSH 10 ML FLUSH IVF PRN ×3 (04:30→06:45)
[2017-06-02] MEDS ORDERED: MORPHINE SULFATE 4 MG/ML INJ IV PUSH ONE (04:30)
[2017-06-02] MEDS ORDERED: ONDANSETRON HCL 4 MG/2 ML VIAL IV PUSH ONE (04:30)
[2017-06-02] MEDS ORDERED: ASPIRIN 81 MG CHEW TAB PO ONE (04:30)
[2017-06-02] MEDS ORDERED: POTA10TA2 PO (04:34)
--- NOTE | 2017-06-02 04:37 | PD ---
HPI Chief Complaint: Musculoskeletal Complaint Time Seen by Provider: 04:26 Travel History International Travel<30 days: No Contact w/Intl Traveler<30days: No Traveled to known affect area: No History of Present Illness HPI 76-year-old male presents to the emergency department by private transportation the care of his spouse for evaluation of left shoulder pain that radiates to his left neck area. Patient states he was awakened from sleep with the pain. Patient does not report any increased pain with range of motion and does not note any pain into the left upper extremity. No pallor or coolness of the extremity. No recent procedure or long distance travel. Patient does take Plavix. Patient did take 2 sublingual nitroglycerin with no relief of pain. Patient denies chest pain. Patient's had no nausea no vomiting no sweats or other referred pain. Patient states pain may symptoms short of breath but does not describe pleuritic chest pain. Patient's had no change in activity or recent injury. Patient rates his pain 9/10 in intensity and cannot identify exacerbating or alleviating factor. PFSH Past Medical History Narrative Medical Arthritis diabetes CAD with stents 3 hypothyroidism hypertension and prostate disease; no tobacco use; nursing notes reviewed Arthritis: Yes Cardiac Catheterization: Yes (3 stents/2013) Cardiovascular Problems: Yes (3 stents/2013) High Cholesterol: Yes Diabetes: Yes Patient Takes Glucophage: No Diminished Hearing: No GERD: Yes Gout: Yes Genitourinary: Yes (prostate) Hypertension: Yes Thyroid Disease: Yes Past Surgical History Cardiac Surgery: Yes (3 stent 2013) Social History Alcohol Use: Yes (social ocassional) Tobacco Use: No Substance Use: No Allergies-Medications (Allergen,Severity, Reaction): Coded Allergies: No Known Allergies (Unverified , 06/02/17) Reported Meds & Prescriptions Reported Meds & Active Scripts Active Percocet (Oxycodone-Acetaminophen) 7.5-325 mg Tab 1 Tab PO Q6H PRN Otezla (Apremilast) 30 Mg Tab 30 Mg PO BID Aspir-81 (Aspirin) 81 Mg Tabdr 81 Mg PO DAILY 30 Days Reported Potassium Chloride ER (Potassium Chloride) 10 Meq Tab 10 Meq PO DAILY Tamsulosin (Tamsulosin HCl) 0.4 Mg Cap 0.4 Mg PO HS Mobic (Meloxicam) 15 Mg Tab 15 Mg PO DAILY Pantoprazole (Pantoprazole Sodium) 40 Mg Tab 40 Mg PO DAILY Allopurinol 100 Mg Tab 100 Mg PO DAILY Furosemide 20 Mg Tab 20 Mg PO DAILY Finasteride 5 Mg Tab 5 Mg PO DAILY Do not crush. Clopidogrel (Clopidogrel Bisulfate) 75 Mg Tab 75 Mg PO DAILY Gabapentin 300 Mg Cap 300 Mg PO BID Levothyroxine (Levothyroxine Sodium) 50 Mcg Tab 50 Mcg PO DAILY Atorvastatin (Atorvastatin Calcium) 40 Mg Tab 40 Mg PO HS Metformin (Metformin HCl) 500 Mg Tab 500 Mg PO DAILY With a meal Lisinopril 20 Mg Tab 20 Mg PO DAILY Review of Systems Except as stated in HPI: all other systems reviewed are Neg General / Constitutional: No: Fever, Chills HENT: No: Congestion Cardiovascular: No: Chest Pain or Discomfort, Diaphoresis Respiratory: Positive: Shortness of Breath Gastrointestinal: No: Nausea, Vomiting, Abdominal Pain Genitourinary: No: Flank Pain Musculoskeletal: Positive: Arthralgias (left shoulder), Pain (left shoulder to left side of neck), No: Myalgias Skin: No Rash Neurologic: No: Weakness, Focal Abnormalities, Coordination Problem, Paresthesia Psychiatric: Positive: Anxiety Endocrine: No: Heat Intolerance Hematologic/Lymphatic: No: Easy Bruising Physical Exam Narrative GENERAL: Well-developed well-nourished male in no respiratory distress SKIN: Warm and dry. No rash. HEAD: Atraumatic. Normocephalic. EYES: Pupils equal and round. No scleral icterus. No injection or drainage. ENT: No nasal bleeding or discharge. Mucous membranes pink and moist. NECK: Trachea midline. No JVD. Supple no meningismus no decreased range of motion no tenderness to palpation. CARDIOVASCULAR: Regular rate and rhythm. RESPIRATORY: No accessory muscle use. Clear to auscultation. Breath sounds equal bilaterally. GASTROINTESTINAL: Abdomen soft, non-tender, nondistended. Hepatic and splenic margins not palpable. MUSCULOSKELETAL: Extremities without clubbing, cyanosis, or edema. No obvious deformities. Attention left shoulder to left neck no redness no induration no increased warmth no decreased range of motion nontender to palpation distally neurovascular tendon intact without pallor or coolness no edema or erythema capillary refill is brisk and less than 2 seconds per digit radial pulses 2+ to palpation intact range of motion no deformity. NEUROLOGICAL: Awake and alert. No obvious cranial nerve deficits. Motor grossly within normal limits. Five out of 5 muscle strength in the arms and legs. Normal speech. PSYCHIATRIC: Appropriate mood and affect; insight and judgment normal. Data Data Last Documented VS Vital Signs Date Time Temp Pulse Resp B/P (MAP) Pulse Ox O2 Delivery O2 Flow Rate FiO2 06/02/17 06:28 97.3 77 20 128/58 (81) 97 Nasal Cannula 2.00 Orders Orders Electrocardiogram (06/02/17 04:26) Basic Metabolic Panel (Bmp) (06/02/17 04:26) Ckmb (Isoenzyme) Profile (06/02/17 04:26) Complete Blood Count With Diff (06/02/17 04:26) Magnesium (Mg) (06/02/17 04:26) Prothrombin Time / Inr (Pt) (06/02/17:) Act Partial Throm Time (Ptt) (06/02/17 04:26) Troponin I (06/02/17 04:26) Chest, Single Ap (06/02/17 04:26) Ecg Monitoring (06/02/17 04:26) Bilateral Bp Monitoring (06/02/17 04:26) Iv Access Insert/Monitor (06/02/17 04:26) Oximetry (06/02/17 04:26) Oxygen Administration (06/02/17 04:26) Aspirin Chew (Aspirin Chew) (06/02/17 04:30) Sodium Chloride 0.9% Flush (Ns Flush) (06/02/17 04:30) Ondansetron Inj (Zofran Inj) (06/02/17 04:30) Morphine Inj (Morphine Inj) (06/02/17 04:30) CKMB (06/02/17 04:10) CKMB% (06/02/17 04:10) Sodium Chlorid 0.9% 500 Ml Inj (Ns 500 M (06/02/17 05:45) Dexamethasone Inj (Decadron Inj) (06/02/17 05:45) Nitroglycerin Sl (Nitrostat Sl) (06/02/17 05:45) Sodium Chloride 0.9% Flush (Ns Flush) (06/02/17 06:00) Nitroglycerin 2% Oint (Nitroglycerin 2% (06/02/17 06:30) Heparin Infusion MARIO.Q1H (06/02/17 06:26) Heparin Inj (Heparin Inj) (06/02/17 06:30) Heparin-D5w 25,000 U/250 Ml (Heparin-D5w (06/02/17 06:30) Act Partial Throm Time (Ptt) (06/02/17 06:26) Cbc No Diff, Includes Plts (06/02/17 06:26) Cbc No Diff, Includes Plts (06/05/17 06:00) Act Partial Throm Time (Ptt) (06/02/17 13:26) Occult Blood (Hemoccult) Stool (06/02/17 06:26) Cta Thor Abd Aorta W Iv C W3d (06/02/17 ) Sodium Chlorid 0.9% 500 Ml Inj (Ns 500 M (06/02/17 06:45) Admit Order (Ed Use Only) (06/02/17 ) ^ Saline Lock (06/02/17 06:35) Resp Oxygen Nathanael C Titrat 1-4 L (06/02/17 ) Notify Dr: Other (06/02/17 06:35) Sodium Chloride 0.9% Flush (Ns Flush) (06/02/17 09:00) Sodium Chloride 0.9% Flush (Ns Flush) (06/02/17 06:45) Consult Cardiology (06/02/17 06:35) Labs Laboratory Tests Test 06/02/17 04:10 White Blood Count 8.4 TH/MM3 Red Blood Count 4.73 MIL/MM3 Hemoglobin 14.1 GM/DL Hematocrit 43.2 % Mean Corpuscular Volume 91.2 FL Mean Corpuscular Hemoglobin 29.8 PG Mean Corpuscular Hemoglobin Concent 32.6 % Red Cell Distribution Width 13.0 % Platelet Count 189 TH/MM3 Mean Platelet Volume 8.6 FL Neutrophils (%) (Auto) 59.4 % Lymphocytes (%) (Auto) 29.8 % Monocytes (%) (Auto) 7.9 % Eosinophils (%) (Auto) 2.6 % Basophils (%) (Auto) 0.3 % Neutrophils # (Auto) 5.0 TH/MM3 Lymphocytes # (Auto) 2.5 TH/MM3 Monocytes # (Auto) 0.7 TH/MM3 Eosinophils # (Auto) 0.2 TH/MM3 Basophils # (Auto) 0.0 TH/MM3 CBC Comment DIFF FINAL Differential Comment Prothrombin Time 10.4 SEC Prothromb Time International Ratio 0.9 RATIO Activated Partial Thromboplast Time 27.2 SEC Blood Urea Nitrogen 35 MG/DL Creatinine 1.50 MG/DL Random Glucose 107 MG/DL Calcium Level 8.4 MG/DL Magnesium Level 2.0 MG/DL Sodium Level 139 MEQ/L Potassium Level 4.3 MEQ/L Chloride Level 106 MEQ/L Carbon Dioxide Level 25.5 MEQ/L Anion Gap 8 MEQ/L Estimat Glomerular Filtration Rate 45 ML/MIN Total Creatine Kinase 206 U/L Creatine Kinase MB 2.9 NG/ML Troponin I LESS THAN 0.02 NG/ML MDM Medical Decision Making Medical Screen Exam Complete: Yes Emergency Medical Condition: Yes Medical Record Reviewed: Yes Interpretation(s) CBC & BMP Diagram 06/02/17 04:10 Calcium Level 8.4 L, Magnesium Level 2.0 Vital Signs Date Time Temp Pulse Resp B/P (MAP) Pulse Ox O2 Delivery O2 Flow Rate FiO2 06/02/17 05:00 81 20 115/55 (75) 95 Room Air 131/69 (89) 06/02/17 04:51 81 20 117/55 (75) 95 Room Air 06/02/17 04:44 18 06/02/17 04:21 84 24 163/76 (105) 95 Room Air 06/02/17 04:16 84 26 06/02/17 04:09 97.6 84 32 162/78 (106) 96 06/02/17 03:55 97.6 84 32 162/78 (106) 96 troponin I: < 0.02, not elevated ck: 209, not elevated EKG sinus rhythm rate 80 first-degree AV block no acute ST elevation or injury pattern or ectopy noted EKG #2 after sublingual nitroglycerin pain decreased to 0/10 in intensity with hypertension increased to 5/10 intensity; sinus rhythm rate [address] elevation no ischemia no ectopy noted Differential Diagnosis Shoulder pain atypical chest pain ACS NH aortic dissection vertebral basilar dissection aneurysm PE pneumothorax bursitis also to consider DVT limits ischemia Narrative Course Well-developed clinically obese male in obvious discomfort with increased respiratory rate afebrile without reproducible shoulder to left neck pain; patient placed on piper helper and pulse oximetry IV access obtained EKG ordered along with labs; patient administered Zofran 4 mg IV for pain sulfate 4 mg IV aspirin 162 mg by mouth Patient with lab values found to be within normal range with normal cardiac enzyme values EKG no injury pattern no ST elevation first degree AVB noted; cxr no acute abnormality; patient re-examined and direct palpation and range of motion of the shoulder does not elicit or worsen symptoms. Patient administered sublingual nitroglycerin times one dose, Decadron 8 mg IV and a bolus of normal saline. Patient received x 1 SL NTG 0.4 mg and pain decreased from 7/10 to 0/10 but BP dropped to 79/40; patient was placed supine and NS bolus administered also patient noted returning of left shoulder pain to 3/10 to 5/10 --repeat EKG performed without acute injury change ischemia or ST elevation. Only administered decadron 4 mg iv x 1 dose. Patient with greater than 20 point variation and blood pressure right arm to left arm prior to starting heparin patient will be sent for stat CTA of the thorax and abdominal aorta patient has bounding bilateral radial pulses and dorsalis pedis pulses 2 palpation. Room air O2 saturation 99-97% on supplemental oxygen 2 L/m nasal cannula remained 97-99% patient denies any shortness of breath. There is no referred neck jaw back chest or abdomen pain. Patient and spouse informed NO METFORMIN for >48 from CTA today. 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
[2017-06-02 05:07] LABS: CHLORIDE 106 MEQ/L (98-107); POTASSIUM 4.3 MEQ/L (3.5-5.1); SODIUM (NA) 139 MEQ/L (136-145)
[2017-06-02 05:10] LABS: ANION GAP 8 MEQ/L (5-15); BICARBONATE 25.5 MEQ/L (21.0-32.0); BLOOD UREA NITROGEN 35 MG/DL (7-18)
[2017-06-02 05:11] LABS: APTT (PATIENT) 27.2 SEC (24.3-30.1); INTERNATIONAL NORMALIZED RATIO 0.9 RATIO; PROTHROMBIN TIME - PATIENT 10.4 SEC (9.8-11.6)
[2017-06-02 05:13] LABS: GLOMERULAR FILTRATION RATE 45 ML/MIN (>89)
[2017-06-02 05:17] LABS: CREATINE KINASE 206 U/L (39-308)
--- NOTE | 2017-06-02 05:22 | RADRPT ---
EXAM DATE/TIME: 06/02/2017 04:55 [facility] COMPARISON: CHEST SINGLE AP, November 19, 2016, 6:06. INDICATIONS : Chest pain. MEDICAL HISTORY : Hypertension. Gastroesophageal reflux disease. Peripheral vascular disease. Arthritis. Diabetes, Thyroid disease, CAD SURGICAL HISTORY : Spinal surgery. Coronary stent. ENCOUNTER: Initial ACUITY: 1 day PAIN SCORE: 7/10 LOCATION: Bilateral chest FINDINGS: A single view of the chest demonstrates the lungs to be symmetrically aerated without evidence of mas s, infiltrate or effusion. The heart is enlarged, stable from prior.. Osseous structures are intact . CONCLUSION: The lungs are clear. Cardiomegaly. Jones Candelario MD on June 02, 2017 at 5:20 Board Certified Radiologist. This report was verified electronically.
[2017-06-02 05:28] LABS: BASOPHIL % 0.3 % (0.0-2.0); EOSINOPHIL # 0.2 TH/MM3 (0-0.4); EOSINOPHIL % 2.6 % (0.0-4.0); HEMATOCRIT 43.2 % (39.0-51.0); HEMO FLAGS DIFF FINAL; LYMPH % 29.8 % (9.0-44.0); LYMPHOCYTE # 2.5 TH/MM3 (1.0-4.8); MEAN CELL VOLUME 91.2 FL (80.0-100.0); MEAN CORPUSCULAR HEMOGLOBIN 29.8 PG (27.0-34.0); MEAN CORPUSCULAR HGB CONC 32.6 % (32.0-36.0); MONO % 7.9 % (0.0-8.0); NEUT % 59.4 % (16.0-70.0); PLATELET COUNT 189 TH/MM3 (150-450); RED BLOOD COUNT 4.73 MIL/MM3 (4.50-5.90); WHITE BLOOD COUNT 8.4 TH/MM3 (4.0-11.0)
[2017-06-02 05:29] LABS: CKMB 2.9 NG/ML (0.5-3.6)
[2017-06-02] MEDS ORDERED: NITROGLYCERIN 0.4 MG SL 25 TABS/BTL SL ONE (05:45)
[2017-06-02] MEDS ORDERED: SODIUM CHLORID 0.9% 500 ML INJ 500 ML IV ONE ×2 (05:45→06:45)
[2017-06-02] MEDS ORDERED: DEXAMETHASONE SOD PHOS 4 MG/ML VIAL IV PUSH ONE (05:45)
[2017-06-02] MEDS ORDERED: HEPARIN SODIUM - IV 10,000 UNITS/10 ML VIAL IV ONE (06:30)
[2017-06-02] MEDS ORDERED: HEPARIN-D5W 25,000 U/250 ML 250 ML IV PRN (06:30)
[2017-06-02] MEDS ORDERED: NITROGLYCERIN 2% OINT 1 GM PACKET TOPICAL ONE ×2 (06:30→07:00)
[2017-06-02] MEDS ORDERED: IOHEXOL 350 MG/ML 10 ML VIAL (for RAD DIAG) IVCONTRAST ONE (07:20)
[2017-06-02 07:42] LABS: HEMATOCRIT 35.6 % (39.0-51.0); MEAN CELL VOLUME 91.7 FL (80.0-100.0); MEAN CORPUSCULAR HEMOGLOBIN 30.5 PG (27.0-34.0); MEAN CORPUSCULAR HGB CONC 33.2 % (32.0-36.0); PLATELET COUNT 142 TH/MM3 (150-450); RED BLOOD COUNT 3.89 MIL/MM3 (4.50-5.90); RED CELL DISTRIBUTION WIDTH 13.4 % (11.6-17.2); REVIEW FLAG FINAL; WHITE BLOOD COUNT 6.6 TH/MM3 (4.0-11.0)
[2017-06-02] MEDS ORDERED: oxyCODONE/ACETAMINOPHEN 7.5 MG/325 MG TAB PO PRN (07:45)
[2017-06-02 07:55] LABS: APTT (PATIENT) 28.2 SEC (24.3-30.1)
--- NOTE | 2017-06-02 08:13 | RADRPT ---
EXAM DATE/TIME: 06/02/2017 07:12 [facility] COMPARISON: No previous studies available for comparison. INDICATIONS : Shortness of breath. Left shoulder and neck pain for 2 hours. IV CONTRAST: 99 cc Omnipaque 350 (iohexol) IV RADIATION DOSE: 22.22 CTDIvol (mGy) MEDICAL HISTORY : Cardiovascular disease. Diabetes mellitus type 2. Gastroesophageal reflux disease.Hypertension SURGICAL HISTORY : Coronary artery stent. ENCOUNTER: Initial ACUITY: 1 day PAIN SCALE: 9/10 LOCATION: Left upper chest TECHNIQUE: Volumetric scanning was performed using a multi-row detector CT scanner. The data was post processed with a variety of visualization algorithms including full volume maximum intensity projection, multi -planar sliding thin slab reformation, curved planar reformation, and surface rendering techniques. Using automated exposure control and adjustment of the mA and/or kV according to patient size, radiat ion dose was kept as low as reasonably achievable to obtain optimal diagnostic quality images. DICOM format image data is available electronically for review and comparison. FINDINGS: LUNGS: There is severe respiratory motion artifact with associated groundglass opacity in a patchy distribut ion bilaterally. MEDIASTINUM: There is coronary artery calcification. No lymphadenopathy is visualized. ABDOMEN: The liver, adrenal glands, spleen, and pancreas demonstrate no acute finding. There is calcification in the right adrenal gland. There are 3 low-density lesions in the right kidney measuring up to 3 cm in a single low-density lesion in the left kidney measuring 1.5 cm. All have density measurements oscar racteristic of simple cysts. Left kidney is smaller than the right. A small hiatal hernia is present. PELVIS: No acute finding is identified. There is a small fat-containing left inguinal hernia. THORACIC AORTA: The thoracic aortic root is normal with normal branching of the great vessels. There is no evidence of aneurysm or dissection. There is mild atherosclerotic disease of the aorta. ABDOMINAL AORTA: The aorta is normal in caliber without aneurysm or dissection. The renal arteries are patent bilater ally. The proximal celiac and superior mesenteric arteries are patent. There is mild atherosclerotic disease. PELVIC VESSELS: The internal iliac and external iliac vessels are patent without aneurysm or stenosis. CONCLUSION: No aneurysm or dissection is identified. There is mild atherosclerotic disease with coronary artery c alcification. Mikey Maradiaga MD on June 02, 2017 at 8:06 Board Certified Radiologist. This report was verified electronically.
[2017-06-02] MEDS: SODIUM CHLOR 0.9% 1000 ML INJ 1,000 ML IV SCH ×4 (08:34→22:02)
[2017-06-02] MEDS: SODIUM CHLORIDE 0.9% FLUSH 10 ML FLUSH IV FLUSH SCH ×2 (08:35→20:56)
[2017-06-02] MEDS: LEVOTHYROXINE SODIUM 50 MCG TAB PO SCH (08:58)
[2017-06-02] MEDS: FINASTERIDE 5 MG TAB PO SCH (08:59)
[2017-06-02] MEDS: APREMILAST 30 MG PO SCH ×2 (09:00→20:56)
[2017-06-02] MEDS: ALLOPURINOL 100 MG TAB PO SCH (09:00)
[2017-06-02] MEDS: CLOPIDOGREL 75 MG TAB PO SCH (09:00)
[2017-06-02] MEDS: ASPIRIN EC 81 MG TABEC PO SCH (09:07)
[2017-06-02] MEDS: POTASSIUM CHLORIDE 10 MEQ CONTROLLED RELEASE TAB PO SCH (09:08)
[2017-06-02] MEDS: GABAPENTIN 300 MG CAP PO SCH ×2 (09:08→20:56)
[2017-06-02] MEDS: FUROSEMIDE 20 MG TAB PO SCH (09:08)
[2017-06-02] MEDS: LISINOPRIL 20 MG TAB PO SCH (09:08)
[2017-06-02] MEDS: PANTOPRAZOLE SOD 40 MG DELAYED RELEASE TAB PO SCH (09:09)
--- NOTE | 2017-06-02 12:55 | HHI.PR ---
Objective Objective Results - Vital Signs Date Time Temp Pulse Resp B/P (MAP) Pulse Ox O2 Delivery O2 Flow Rate FiO2 06/02/17 12:00 104 06/02/17 11:10 97.6 97 20 158/80 (106) 99 06/02/17 11:10 87 06/02/17 10:25 06/02/17 09:57 92 18 140/70 (93) 99 Nasal Cannula 2.00 06/02/17 09:10 90 18 144/74 (97) 97 Nasal Cannula 2.00 06/02/17 07:41 84 20 138/64 (88) 100 Nasal Cannula 2.00 06/02/17 07:36 100 Nasal Cannula 2.00 06/02/17 07:36 100 Nasal Cannula 2.00 06/02/17 07:36 20 06/02/17 06:57 80 20 129/58 (81) 99 Nasal Cannula 2.00 147/64 (91) 06/02/17 06:48 78 20 06/02/17 06:28 97.3 77 20 128/58 (81) 97 Nasal Cannula 2.00 06/02/17 06:27 97 Nasal Cannula 2.00 06/02/17 06:05 79 18 104/48 (66) 92 Room Air 06/02/17 05:58 82 18 103/55 (71) 96 Room Air 79/40 (53) 06/02/17 05:58 18 06/02/17 05:50 79 18 121/60 (80) 97 Room Air 127/53 (77) 06/02/17 05:00 81 20 115/55 (75) 95 Room Air 131/69 (89) 06/02/17 04:51 81 20 117/55 (75) 95 Room Air 06/02/17 04:44 18 06/02/17 04:21 84 24 163/76 (105) 95 Room Air 06/02/17 04:16 84 26 06/02/17 04:09 97.6 84 32 162/78 (106) 96 06/02/17 03:55 97.6 84 32 162/78 (106) 96 I/O 06/01/17 06/01/17 06/01/17 06/02/17 06/02/17 06/02/17 07:00 15:00 23:00 07:00 15:00 23:00 Intake Total 500 ml 1072 ml Output Total 400 ml Balance 500 ml 672 ml Intake Oral 360 ml IV Total 500 ml 712 ml Output Urine Total 400 ml # Voids 1 Result Diagram: 06/02/17 0733 06/02/17 0410 A/P Assessment and Plan [id number] Mild thrombocytopenia since Heparin drip. Monitor for any further drops. currently, 142 cbc in am. Sailaja Rust Jun 02, 2017 12:55
--- NOTE | 2017-06-02 13:37 | EKG ---
Date Performed: 06/02/2017 Time Performed: 04:45:28 PTAGE: 76 years EKG: Sinus rhythm WITH FIRST DEGREE AV BLOCK NONSPECIFIC T-WAVE ABNORMALITY ABNORMAL ECG PREVIOUS TRACING : 11/19/2016 05.19 Since previous tracing, R-wave progression has improved, an d the ST-T changes have slightly improved. DOCTOR: Sd Shi Interpretating Date/Time 06/02/2017 13:37:20
--- NOTE | 2017-06-02 13:39 | MH ---
cc: WILLY TEE MD DATE OF ADMISSION: 06/02/2017 REASON FOR ADMISSION: Right shoulder pain radiating into neck. TRAVEL IN THE LAST THIRTY DAYS: None. HISTORY OF PRESENT ILLNESS: This is a pleasant 76-year-old male who presented to the [facility] Emergency Room with acute onset of left shoulder pain radiating into the neck area. He describes it as a sharp uncontrolled pain that he had never felt before. The patient denies any recent lifting or pulling with his shoulders except for picking up a crock pot full of salsa this past evening. The patient does have a history of cardiovascular disease, took two nitroglycerin at home with no relief. On arrival to the emergency room, he was given two more nitroglycerin and did note some relief. The patient denies any chest pain but did note some shortness of breath on arrival to the [facility] Emergency Room according to his . The patient is a fair historian. His is assisting with his history. The patient states he has been in his usual state of health up until this pain hit early this a.m. The pain was not related to the breathing. The patient does have a history of headaches but denies any headache at this current time. The patient is able to move the shoulder on command, has fairly good range of motion for his age, denies any numbness or cooling in the left upper extremity. PAST MEDICAL HISTORY: 1. Arthritis. 2. Diabetes type 2. 3. Coronary artery disease. 4. Cardiovascular disease. 5. Hypothyroidism. 6. Hypertension. 7. Benign prostate hypertrophy. 8. Prostate disease. 9. Hyperlipidemia. 10. Gastroesophageal reflux disease (GERD). 11. Thyroid disease. 12. Degenerative disc disease with special attention to the lumbar area. 13. Gas pain. 14. Headaches. 15. Gout. 16. Thyroid disease. PAST SURGICAL HISTORY: 1. Cardiac stents, 3 received in 2013 according to the record. 2. Lumbar back surgery. 3. Benign prostate hypertrophy with recent stretching of his urethra this past week. ALLERGIES: NO KNOWN ALLERGIES. ACTIVE MEDICATIONS: 1. Percocet. 2. Aspirin. 3. Otezla. 4. Potassium. 5. Tamsulosin. 6. Mobic. 7. Propranolol. 8. Allopurinol. 9. Lasix. 10. Finasteride. 11. Plavix. 12. Gabapentin. 13. Levothyroxine. 14. Atorvastatin. 15. Metformin. 16. Lisinopril. SOCIAL HISTORY: The patient is and currently lives with his , denies any alcohol or illicit drug use. Occasional social alcohol drink. REVIEW OF SYSTEMS: A limited review ten-point was obtained and a lot of the information was given by his . He was able to answer simple questions which are noted in the history of present illness. This includes sharp left shoulder pain radiating up to the neck, some shortness of breath related to the pain. Some gas pain unrelieved with the nitroglycerin. The only recent lifting was a crock pot full of salsa this past p.m. and other than that, no change in his activities of daily living. Other systems negative or unremarkable. PHYSICAL EXAMINATION: VITAL SIGNS: Temperature is 97.6, initially the pulse was 84 and has been as high as 104, respiratory rate 20, blood pressure 158/80, initially on emergency room admission 138/64, 02 saturation 99% nasal cannula at 2 liters. GENERAL: Obese elderly male looks to be his stated age. He is awake, can answer his symptom questions appropriately but the assists with history. SKIN: [place], warm and dry. HEAD, EYES, EARS, NOSE, THROAT: Normocephalic and atraumatic. Pupils equal, round and reactive to light and accommodation. The mucous membranes are moist. No scleral icterus. NECK: Thick, supple. CARDIOVASCULAR: S1 and S2. Rhythm is borderline tachycardia. No obvious murmurs, rubs or gallops. He has a mild trace of lower extremity edema. Extremities are warm to touch. Pulses are intact. RESPIRATORY: Lungs are essentially clear anteriorly and posteriorly with no wheezes, rales or rhonchi. ABDOMEN: Round, soft, obese, nontender, nondistended. Bowel sounds are active. MUSCULOSKELETAL: Moves extremities with purpose. He is now moving the left shoulder without any acute pain. No obvious deformities. NEUROLOGIC: He is alert. Speech is clear and normal. Tongue is midline. 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 PSYCHIATRIC: Mood and affect are appropriate. DIAGNOSTIC DATA: White blood cell count now 6.6 and was 8.4 on admission, RBCs 3.89, hemoglobin 11.8, 14.1 on admission, hematocrit 35.6, platelet count was 189,000 on admission and now 142. PT and INR 0.9. APTT 28.2. PT 10.4. Chemistries: Sodium 139, potassium 4.3, chloride 106, carbon dioxide 25.5, BUN 35, creatinine 1.5, GFR 45, glucose 107, calcium 8.4. Troponin less than 0.02. CK-MB 2.9. Total creatine kinase 206. Magnesium 2. IMAGING STUDIES: Chest x-ray clear with cardiomegaly noted. Aortic CTA: No aneurysm or dissection. Mild atherosclerotic disease with coronary artery calcification. ASSESSMENT AND PLAN: 1. Left shoulder pain radiating up into the neck, rule out any type of cardiovascular event since the patient's pain was relieved after four nitroglycerin. The patient was placed on a heparin drip IV as well as receiving nasogastric tube x4. Currently the patient is pain-free. Cardiology consult has been done to evaluate for any further needs. 2-D echocardiogram has been ordered. Lipid profile. Currently first set of enzymes are negative. The patient has a significant cardiovascular history with stents in the past. We appreciate the plan of care per cardiology. In the emergency room, the patient was given aspirin x1 and ECG monitoring for any acute dysrhythmias and currently none have been seen. The patient also received a dose of dexamethasone 8 milligrams IV and one bolus of IV fluids. The patient had a CT scan that ruled out any type of aneurysm or dissection. 2. Gastroesophageal reflux disease (GERD) / gas pain. This too could have been a cardiac symptom The gas pain too could have been a cardiac symptom now that the pain has been eased with nitroglycerin. Will place the patient on peptic ulcer disease prophylaxis, Protonix and monitor for any further symptoms. 3. Acute kidney injury with renal insufficiency; will monitor the patient's labs, hydration with caution secondary to his cardiovascular disease. 4. Cardiomegaly, compensated. No acute findings of congestive heart failure. Home medications have been reconciled which include Plavix, Lasix, Prinivil, potassium. 5. Diabetes type 2. Medications p.o. The patient will be on Accu-Cheks a.c. and at bedtime, an ADA diet and sliding scale. 6. The patient has a history of dermatitis bilateral arms and this will be monitored for any worsening with medical management. 7. Benign prostate hypertrophy. Recent urethral stretching. Will monitor his urine output. The patient at this time is not having any problems with his stream and he is currently being managed on Flomax. We will continue that. 8. Hyperlipidemia. The patient is currently on Lipitor for his medical management. Will follow up with labs in the morning. The patient is currently on observation. Will continue to follow his needs. Dictated by MARTA Nassar. MD PK oMreno/CARI /12:39 PM /1:12 PM seen, examined by myself, Dr Tee, today Discussed with patient Left shoulder pain, no injury, no falls Pain radiates to left jaw Different from his presentation prior to his coronary stenting Also has problems with diabetes, prostate enlargement status post TURP, acute on chronic kidney disease, obesity, And never had sleep study, will recommend sleep study after discharge Waiting to see Dr. Salinas tomorrow Discussed with mid level provider The exam, history, and the medical decision-making described in the above note were completed with the assistance of the mid-level provider. I reviewed the findings presented. I attest that I had a [id number] encounter with the patient on the same day, and personally performed and documented my assessment and findings in the medical record. KYLEE
--- NOTE | 2017-06-02 16:08 | PD.CONS ---
HPI Service Cardiology Consult Requested By Dr. Ching Reason for Consult Chest pain, R/O ACS Primary Care Physician Jackson Alberts DO History of Present Illness Mr. Dodge is a pleasant 76 year old known to Dr. Salinas. He has a history of CAD with previous stenting x 3, hypertension, hyperlipidemia and diabetes mellitus. This morning he was awakened with sudden onset of sharp left shoulder pain with radiation to his neck. He describes the pain as sharp, stabbing pain. He took sublingual nitroglycerin x 2 without relief. He denies any associated symptoms. He presented to the ED at [place] for further evaluation. Upon arrival to the ED, he was given 2 more sublingual nitro with resolution of his pain. He does report some mild sob after arriving to the ED. Initial troponin was negative. He has had a drop in his hemoglobin - initial 14.1, repeat 11.8, he has some renal insufficiency. EKG with no acute ST changes. He denies any recent musculoskeletal injuries or strains. He did note lifting a heavy crock pot last evening. CXR - with no acute findings, cardiomegaly. CTA aorta was negative for aneurysm or dissection. He is currently resting in bed without distress. He denies any further pain, sob or complaints. His is present at the bedside. Review of Systems Consitutional: DENIES: Fatigue, Fever, Chills, Weight gain, Weight loss Eyes: DENIES: Change in vision HEENT: DENIES: Lightheadedness, Change in hearing Respiratory: COMPLAINS OF: Shortness of breath, DENIES: See HPI, Cough, Snoring , Wheezing, Sputum production Cardiovascular: DENIES: See HPI, Chest pain, Palpitations, Syncope, Tachycardia Gastrointestinal: DENIES: Nausea, Vomiting, Change in bowel habits, Reflux, Bloody stools, Melena Genitourinary: DENIES: Urinary incontinence Integumentary: DENIES: Rash Neurologic: DENIES: Tingling or numbness, Memory problems, Poor Balance, Stroke symptoms Musculoskeletal: COMPLAINS OF: Joint pain, Muscle pain (left shoulder and neck pain), Limited range of motion, Back pain Psychiatric: DENIES: Anxiety, Depression, Sleep disturbances Hematologic: DENIES: Bruising tendencies, Bleeding tendencies Endocrine: DENIES: Weight gain, Weight loss, Thyroid disease Past Family Social History Allergies: Coded Allergies: No Known Allergies (Unverified , 06/02/17) Past Medical History 1. Arthritis. 2. Diabetes type 2. 3. Coronary artery disease. 4. Cardiovascular disease. 5. Hypothyroidism. 6. Hypertension. 7. Benign prostate hypertrophy. 8. Prostate disease. 9. Hyperlipidemia. 10. Gastroesophageal reflux disease (GERD). 11. Thyroid disease. 12. Degenerative disc disease with special attention to the lumbar area. 13. Gas pain. 14. Headaches. 15. Gout. 16. Thyroid disease. Past Surgical History Cardiac stents x 3 - 2013 Lumbar surgery Recent urethra stretching Reported Medications Reported Meds & Active Scripts Active Percocet (Oxycodone-Acetaminophen) 7.5-325 mg Tab 1 Tab PO Q6H PRN Otezla (Apremilast) 30 Mg Tab 30 Mg PO BID Aspir-81 (Aspirin) 81 Mg Tabdr 81 Mg PO DAILY 30 Days Reported Potassium Chloride ER (Potassium Chloride) 10 Meq Tab 10 Meq PO DAILY Tamsulosin (Tamsulosin HCl) 0.4 Mg Cap 0.4 Mg PO HS Mobic (Meloxicam) 15 Mg Tab 15 Mg PO DAILY Pantoprazole (Pantoprazole Sodium) 40 Mg Tab 40 Mg PO DAILY Allopurinol 100 Mg Tab 100 Mg PO DAILY Furosemide 20 Mg Tab 20 Mg PO DAILY Finasteride 5 Mg Tab 5 Mg PO DAILY Do not crush. Clopidogrel (Clopidogrel Bisulfate) 75 Mg Tab 75 Mg PO DAILY Gabapentin 300 Mg Cap 300 Mg PO BID Levothyroxine (Levothyroxine Sodium) 50 Mcg Tab 50 Mcg PO DAILY Atorvastatin (Atorvastatin Calcium) 40 Mg Tab 40 Mg PO HS Metformin (Metformin HCl) 500 Mg Tab 500 Mg PO DAILY With a meal Lisinopril 20 Mg Tab 20 Mg PO DAILY Active Ordered Medications Current Medications Medications (Trade) Dose Ordered Sig/Naman Route Start Time Stop Time Status Last Admin Heparin Sodium/ Dextrose 250 ml @ 14.064 mls/ hr TITRATE PRN IV 06/02/17 06:30 06/02/17 08:23 (NS Flush) 2 ml BID IV FLUSH 06/02/17 09:00 (NS Flush) 2 ml UNSCH PRN IVF 06/02/17 06:45 (Zyloprim) 100 mg DAILY PO 06/02/17 09:00 06/02/17 09:00 (Ecotrin Ec) 81 mg DAILY PO 06/02/17 09:00 06/02/17 09:07 (Lipitor) 40 mg HS PO 06/02/17 21:00 (Plavix) 75 mg DAILY PO 06/02/17 09:00 (Proscar) 5 mg DAILY PO 06/02/17 09:00 06/02/17 08:59 (Lasix) 20 mg DAILY PO 06/02/17 09:00 06/02/17 09:08 (Neurontin) 300 mg BID PO 06/02/17 09:00 06/02/17 09:08 (Synthroid) 50 mcg DAILY@0600 PO 06/02/17 08:00 06/02/17 08:58 (Prinivil) 20 mg DAILY PO 06/02/17 09:00 06/02/17 09:08 (Percocet 7.5-325 Mg) 1 tab Q6H PRN PO 06/02/17 07:45 (Protonix) 40 mg DAILY PO 06/02/17 09:00 06/02/17 09:09 (KCl) 10 meq DAILY PO 06/02/17 09:00 06/02/17 09:08 (Flomax) 0.4 mg HS PO 06/02/17 21:00 Patient Own Medication PT OWN MED: (Apremil... BID PO 06/02/17 09:00 Sodium Chloride 1,000 ml @ 84 mls/hr [id number] IV 06/02/17 07:45 06/02/17 08:34 Social History He is , lives with his . Denies illicit drug use. Social drinker. Non-smoker. Physical Exam Vital Signs Vital Signs Date Time Temp Pulse Resp B/P (MAP) Pulse Ox O2 Delivery O2 Flow Rate FiO2 06/02/17 15:00 97.4 81 20 109/53 (71) 96 06/02/17 15:00 82 06/02/17 14:00 75 06/02/17 13:00 87 06/02/17 12:00 104 06/02/17 11:10 97.6 97 20 158/80 (106) 99 06/02/17 11:10 87 06/02/17 10:25 06/02/17 09:57 92 18 140/70 (93) 99 Nasal Cannula 2.00 06/02/17 09:10 90 18 144/74 (97) 97 Nasal Cannula 2.00 06/02/17 07:41 84 20 138/64 (88) 100 Nasal Cannula 2.00 06/02/17 07:36 100 Nasal Cannula 2.00 06/02/17 07:36 100 Nasal Cannula 2.00 06/02/17 07:36 20 06/02/17 06:57 80 20 129/58 (81) 99 Nasal Cannula 2.00 147/64 (91) 06/02/17 06:48 78 20 06/02/17 06:28 97.3 77 20 128/58 (81) 97 Nasal Cannula 2.00 06/02/17 06:27 97 Nasal Cannula 2.00 06/02/17 06:05 79 18 104/48 (66) 92 Room Air 06/02/17 05:58 82 18 103/55 (71) 96 Room Air 79/40 (53) 06/02/17 05:58 18 06/02/17 05:50 79 18 121/60 (80) 97 Room Air 127/53 (77) 06/02/17 05:00 81 20 115/55 (75) 95 Room Air 131/69 (89) 06/02/17 04:51 81 20 117/55 (75) 95 Room Air 06/02/17 04:44 18 06/02/17 04:21 84 24 163/76 (105) 95 Room Air 06/02/17 04:16 84 26 06/02/17 04:09 97.6 84 32 162/78 (106) 96 06/02/17 03:55 97.6 84 32 162/78 (106) 96 Physical Exam GENERAL: Awake, alert, no distress. SKIN: Warm and dry. HEAD: Atraumatic. Normocephalic. EYES: Pupils equal and round. No scleral icterus. No injection or drainage. ENT: No nasal bleeding or discharge. Mucous membranes pink and moist. NECK: Trachea midline. No JVD. CARDIOVASCULAR: Regular rate and rhythm. No murmurs, rubs, gallops. No edema. RESPIRATORY: No accessory muscle use. Clear to auscultation. Breath sounds equal bilaterally. GASTROINTESTINAL: Abdomen soft, obese, non-tender, nondistended. MUSCULOSKELETAL: Extremities without clubbing, cyanosis, or edema. No obvious deformities. NEUROLOGICAL: Awake and alert. No obvious cranial nerve deficits. Motor grossly within normal limits. Five out of 5 muscle strength in the arms and legs. Normal speech. PSYCHIATRIC: Appropriate mood and affect; insight and judgment normal. Laboratory Laboratory Tests Test 06/02/17 04:10 06/02/17 07:33 White Blood Count 8.4 6.6 Red Blood Count 4.73 3.89 Hemoglobin 14.1 11.8 Hematocrit 43.2 35.6 Mean Corpuscular Volume 91.2 91.7 Mean Corpuscular Hemoglobin 29.8 30.5 Mean Corpuscular Hemoglobin Concent 32.6 33.2 Red Cell Distribution Width 13.0 13.4 Platelet Count 189 142 Mean Platelet Volume 8.6 8.3 Neutrophils (%) (Auto) 59.4 Lymphocytes (%) (Auto) 29.8 Monocytes (%) (Auto) 7.9 Eosinophils (%) (Auto) 2.6 Basophils (%) (Auto) 0.3 Neutrophils # (Auto) 5.0 Lymphocytes # (Auto) 2.5 Monocytes # (Auto) 0.7 Eosinophils # (Auto) 0.2 Basophils # (Auto) 0.0 CBC Comment DIFF FINAL Differential Comment Prothrombin Time 10.4 Prothromb Time International Ratio 0.9 Activated Partial Thromboplast Time 27.2 28.2 Blood Urea Nitrogen 35 Creatinine 1.50 Random Glucose 107 Calcium Level 8.4 Magnesium Level 2.0 Sodium Level 139 Potassium Level 4.3 Chloride Level 106 Carbon Dioxide Level 25.5 Anion Gap 8 Estimat Glomerular Filtration Rate 45 Total Creatine Kinase 206 Creatine Kinase MB 2.9 Troponin I LESS THAN 0.02 Result Diagram: 06/02/17 0733 06/02/17 0410 Imaging Last 24 hours Impressions Chest X-Ray 06/02/17 0426 Signed Impressions: Service Date/Time: Friday, June 02, 2017 04:55 - CONCLUSION: The lungs are clear. Cardiomegaly. Jones Candelario MD Aorta CTA 06/02/17 0000 Signed Impressions: Service Date/Time: Friday, June 02, 2017 07:12 - CONCLUSION: No aneurysm or dissection is identified. There is mild atherosclerotic disease with coronary artery calcification. Mikey Maradiaga MD Assessment and Plan Assessment and Plan Left shoulder, neck pain in a patient with CAD, R/O ACS Acute renal insufficiency Anemia Hypertension Hyperlipidemia GERD Diabetes mellitus Monitor serial troponins, EKG. There has been a drop in his hemoglobin. If second set of enzymes are negative, may discontinue Heparin drip. Will monitor H&H and signs of bleeding. Continue aspirin, plavix, PANKAJ-I, lasix and statin. Continue gentle hydration. Dr. Salinas to follow tomorrow with further recommendations. Code Status Full Discussed Condition With Dr. Alonso and Marycruz Priest Jun 02, 2017 16:08
[2017-06-02 18:20] LABS: APTT (PATIENT) 102.2 SEC (24.3-30.1)
[2017-06-02 19:34] LABS: REVIEW FLAG FINAL
[2017-06-02] MEDS ORDERED: TAMSULOSIN HCL 0.4 MG CAP PO SCH (21:00)
[2017-06-02] MEDS ORDERED: ATORVASTATIN 40 MG TAB PO SCH (21:00)
--- NOTE | 2017-06-02 21:27 | RADRPT ---
EXAM DATE/TIME: 06/02/2017 20:54 [facility] COMPARISON: CTA THORACIC ABDOMINAL AORTA W 3D RECON, June 02, 2017, 7:12. INDICATIONS : Abnormal labs. MEDICAL HISTORY : Hypercholesterolemia. Hypertension. Arthritis. Coronary artery disease. Hyperlipidemia. Dyspnea. Diab etes. SURGICAL HISTORY : Cardiac stents. Cardiac catheterization. Spinal surgery. ENCOUNTER: Initial ACUITY: 1 day PAIN SCORE: 1/10 LOCATION: Bilateral flank MEASUREMENTS: RIGHT KIDNEY: 14.2 x 5.0 x 6.7 cm LEFT KIDNEY: 12.0 x 4.6 x 5.9 cm FINDINGS: RIGHT KIDNEY: Renal cortex is normal in thickness and echotexture. No hydronephrosis, stone, or solid mass. There is a simple cyst in the central kidney measuring 3.8 x 2.7 x 3.8 cm. LEFT KIDNEY: Visualization is suboptimal. Renal cortex is normal in thickness and echotexture. No hydronephrosis, stone, or solid mass. There is a simple appearing cyst in the central kidney measuring 2.3 x 2.4 x 2 cm. BLADDER: Within normal limits given the degree of distension. CONCLUSION: 1. No evidence of hydronephrosis. 2. Simple appearing cysts in both kidneys. 3. The left kidney is smaller than the right. Visualization is suboptimal. Adalberto Loaiza MD on June 02, 2017 at 21:24 Board Certified Radiologist. This report was verified electronically.
[2017-06-03] VITALS (18 sets, daily range): BP systolic 125–141; BP diastolic 54–60; PULSE 47–96; RESP 18–20; TEMP 97–98.1; O2SAT 96–100
[2017-06-03] MEDS: LEVOTHYROXINE SODIUM 50 MCG TAB PO SCH (06:23)
[2017-06-03 06:39] LABS: HEMATOCRIT 37.7 % (39.0-51.0); MEAN CELL VOLUME 95.1 FL (80.0-100.0); MEAN CORPUSCULAR HEMOGLOBIN 31.6 PG (27.0-34.0); MEAN CORPUSCULAR HGB CONC 33.3 % (32.0-36.0); PLATELET COUNT 144 TH/MM3 (150-450); RED BLOOD COUNT 3.97 MIL/MM3 (4.50-5.90); REVIEW FLAG FINAL; WHITE BLOOD COUNT 10.7 TH/MM3 (4.0-11.0)
[2017-06-03 07:51] LABS: BICARBONATE 26.9 MEQ/L (21.0-32.0); POTASSIUM 4.9 MEQ/L (3.5-5.1)
[2017-06-03 07:54] LABS: HDL CHOLESTEROL 46.1 MG/DL (40.0-60.0)
[2017-06-03] MEDS: APREMILAST 30 MG PO SCH (09:00)
[2017-06-03] MEDS: SODIUM CHLORIDE 0.9% FLUSH 10 ML FLUSH IV FLUSH SCH (10:03)
[2017-06-03] MEDS: LISINOPRIL 20 MG TAB PO SCH (10:05)
[2017-06-03] MEDS: ALLOPURINOL 100 MG TAB PO SCH (10:05)
[2017-06-03] MEDS: PANTOPRAZOLE SOD 40 MG DELAYED RELEASE TAB PO SCH (10:05)
[2017-06-03] MEDS: CLOPIDOGREL 75 MG TAB PO SCH (10:05)
[2017-06-03] MEDS: FUROSEMIDE 20 MG TAB PO SCH (10:06)
[2017-06-03] MEDS: POTASSIUM CHLORIDE 10 MEQ CONTROLLED RELEASE TAB PO SCH (10:06)
[2017-06-03] MEDS: ASPIRIN EC 81 MG TABEC PO SCH (10:06)
[2017-06-03] MEDS: GABAPENTIN 300 MG CAP PO SCH (10:06)
[2017-06-03] MEDS: FINASTERIDE 5 MG TAB PO SCH (10:07)
--- NOTE | 2017-06-03 12:43 | HHI.PR ---
Subjective Subjective Remarks Resting in the bed, in room Denies any chest pain, shortness of breath at rest Bradycardia heart rate noted between 47 and 58, denies any lightheadedness BM 1 monitoring bowel regimen, afebrile, (Sailaja Rust) Review of Systems Constitutional Constitutional: Fatigue, Weakness Constitutional Remarks 10 point ROS done positives noted (Sailaja Rust) Cardiology CV Remarks Bradycardia (Sailaja Rust) GI/Abdomen GI/Abdomen Remarks Bowel regimen, BM 1 (Sailaja Rust) Genitourinary Remarks No dysuria (Sailaja Rust) Musculoskeletal MS: Weakness (generalized) (Sailaja Rust) Psychiatric Psychiatric: Normal Mood (Sailaja Rust) Vitals/Results Vital Signs Vital Signs Date Time Temp Pulse Resp B/P (MAP) Pulse Ox O2 Delivery O2 Flow Rate FiO2 06/03/17 06:00 58 06/03/17 05:00 47 06/03/17 04:00 48 06/03/17 03:00 52 06/03/17 03:00 97.0 57 20 125/54 (77) 99 06/03/17 02:00 58 06/03/17 01:00 52 06/03/17 00:00 48 06/02/17 23:00 53 06/02/17 23:00 97.0 60 18 105/50 (68) 97 06/02/17 22:00 56 06/02/17 21:00 58 06/02/17 20:00 64 06/02/17 20:00 96.9 61 14 109/46 (67) 97 06/02/17 19:00 72 06/02/17 18:00 78 06/02/17 17:00 71 06/02/17 16:00 80 06/02/17 15:00 97.4 81 20 109/53 (71) 96 06/02/17 15:00 82 06/02/17 14:00 75 06/02/17 13:00 87 (Sailaja Rust) CBC/BMP: 06/03/17 0518 06/03/17 0518 Lab Results Laboratory Tests Test 06/02/17 16:21 06/02/17 18:32 06/03/17 05:18 Activated Partial Thromboplast Time 102.2 SEC Troponin I LESS THAN 0.02 NG/ML Hemoglobin 13.2 GM/DL 12.6 GM/DL Hematocrit 40.0 % 37.7 % White Blood Count 10.7 TH/MM3 Red Blood Count 3.97 MIL/MM3 Mean Corpuscular Volume 95.1 FL Mean Corpuscular Hemoglobin 31.6 PG Mean Corpuscular Hemoglobin Concent 33.3 % Red Cell Distribution Width 14.0 % Platelet Count 144 TH/MM3 Mean Platelet Volume 9.1 FL Blood Urea Nitrogen 29 MG/DL Creatinine 1.34 MG/DL Random Glucose 134 MG/DL Calcium Level 7.9 MG/DL Sodium Level 141 MEQ/L Potassium Level 4.9 MEQ/L Chloride Level 109 MEQ/L Carbon Dioxide Level 26.9 MEQ/L Anion Gap 5 MEQ/L Estimat Glomerular Filtration Rate 52 ML/MIN Triglycerides Level 93 MG/DL Cholesterol Level 109 MG/DL LDL Cholesterol 44 MG/DL HDL Cholesterol 46.1 MG/DL Cholesterol/HDL Ratio 2.36 RATIO Imaging Remarks Last Impressions Chest X-Ray 06/02/17 0426 Signed Impressions: Service Date/Time: Friday, June 02, 2017 04:55 - CONCLUSION: The lungs are clear. Cardiomegaly. Jones Candelario MD Renal Ultrasound 06/02/17 0000 Signed Impressions: Service Date/Time: Friday, June 02, 2017 20:54 - CONCLUSION: 1. No evidence of hydronephrosis. 2. Simple appearing cysts in both kidneys. 3. The left kidney is smaller than the right. Visualization is suboptimal. Adalberto Loaiza MD Aorta CTA 06/02/17 0000 Signed Impressions: Service Date/Time: Friday, June 02, 2017 07:12 - CONCLUSION: No aneurysm or dissection is identified. There is mild atherosclerotic disease with coronary artery calcification. Mikey Maradiaga MD Current Medications Administered Medications Medications (Trade) Dose Ordered Sig/Naman Route PRN Reason Start Time Stop Time Status Last Admin Dose Admin Allopurinol (Zyloprim) 100 mg DAILY PO 06/02/17 09:00 06/03/17 10:05 Aspirin (Ecotrin Ec) 81 mg DAILY PO 06/02/17 09:00 06/03/17 10:06 Atorvastatin Calcium (Lipitor) 40 mg HS PO 06/02/17 21:00 06/02/17 20:56 Clopidogrel Bisulfate (Plavix) 75 mg DAILY PO 06/02/17 09:00 06/03/17 10:05 Finasteride (Proscar) 5 mg DAILY PO 06/02/17 09:00 06/03/17 10:07 Furosemide (Lasix) 20 mg DAILY PO 06/02/17 09:00 06/03/17 10:06 Gabapentin (Neurontin) 300 mg BID PO 06/02/17 09:00 06/03/17 10:06 Levothyroxine Sodium (Synthroid) 50 mcg DAILY@0600 PO 06/02/17 08:00 06/03/17 06:23 Lisinopril (Prinivil) 20 mg DAILY PO 06/02/17 09:00 06/03/17 10:05 Oxycodone/ Acetaminophen (Percocet 7.5-325 Mg) 1 tab Q6H PRN PO PAIN SCALE 6 TO 10 06/02/17 07:45 06/02/17 21:08 Pantoprazole Sodium (Protonix) 40 mg DAILY PO 06/02/17 09:00 06/03/17 10:05 Potassium Chloride (KCl) 10 meq DAILY PO 06/02/17 09:00 06/03/17 10:06 Tamsulosin HCl (Flomax) 0.4 mg HS PO 06/02/17 21:00 06/02/17 21:08 Patient Own Medication PT OWN MED: (Apremil... BID PO 06/02/17 09:00 06/03/17 09:00 Sodium Chloride 1,000 ml @ 84 mls/hr [id number] IV 06/02/17 07:45 06/02/17 22:02 (Sailaja Rust) Physical Exam General General Appearance: No Acute Distress, Pale (mild), Obese (Sailaja Rust) Eyes Eye Exam: Pupils Equal, Pupils Reactive (Sailaja Rust) Ears & Nose Ears & Nose Exam: Nasal Mucosa [place] (pale) (Sailaja Rust) Throat Throat Exam: Oral Mucosa [place] & Moist (pale) (Sailaja Rust) Neck Neck Exam: Neck Supple (short stocky) (Sailaja RustP) Pulmonary Resp Exam: Diminished Breath Sounds (mild, no active rhonchi or wheeze) (Sailaja Rust) Cardiology CV Exam: Bradycardia (Sailaja RustP) Gastrointestinal/Abdomen GI Exam: Soft (taut), Non-Tender, Bowel Sounds Present GI Remarks BM 1 today (Sailaja Rust) Integumentary Skin Exam: Clear, Warm, Dry, Intact (Sailaja RustP) Extremeties Extremities Exam: Trace Edema (Sailaja RustP) Neurologic Neuro Exam: Awake, Oriented, Speech Clear, Moving All Extremities (Sailaja Rust) Assessment/Plan Assessment/Plan 1. Left shoulder pain radiating up into the neck, rule out any type of cardiovascular event No further complaints of chest pain , no shortness of breath at rest , no acute left shoulder pain or neck pain. CT scan that ruled out any type of aneurysm or dissection. enzymes negative 2, mild drop in hemoglobin and platelets, heparin drip DC'd per cardiology Patient's cardiology coming to see him today. Appreciate his plan of care for any further testing for the heart. Currently on Plavix 2. Gastroesophageal reflux disease (GERD). PUD prophylaxis Protonix Abdomen taut, obesity and possible mild bloating. Denies any cough with swallow 3. Acute kidney injury with renal insufficiency; currently IV hydration at 84 cc an hour, monitor for any congestion Renal ultrasound complete, no acute findings simple cyst noted, no hydronephrosis, labs show mild improvement BUN 29 creatinine 1.34 4. Cardiomegaly, compensated. No acute findings of congestive heart failure. Plavix, Lasix, Prinivil, potassium, oxygen if needed 5. Diabetes type 2. Medications p.o. The patient will be on Accu-Cheks a.c. and at bedtime, an ADA diet and sliding scale. 6. history of dermatitis bilateral arms Monitor for any worsening , medical management 7. Benign prostate hypertrophy. Recent urethral stretching. Will monitor his urine output. The patient at this time is not having any problems with his stream and he is currently being managed on Flomax. Monitor medical management 8. Hyperlipidemia. The patient is currently on Lipitor for his medical management. Discussed with patient and Discussed with nurse Discussed with Dr. Ching, seen on his behalf (Sailaja Rust) Assessment/Plan seen, examined by myself, Dr Ching, today Discussed with patient and his Discharge home today Follow-up with primary physician regarding shoulder pain I called his primary physician a message Follow-up with pulmonology regarding groundglass opacities and consideration for sleep study Discussed with mid level provider The exam, history, and the medical decision-making described in the above note were completed with the assistance of the mid-level provider. I reviewed the findings presented. I attest that I had a [id number] encounter with the patient on the same day, and personally performed and documented my assessment and findings in the medical record. Discharge Minutes: 40 (Jameson Ching MD) Sailaja Rust Jun 03, 2017 12:43 Jameson Ching MD Jun 03, 2017 15:51
--- NOTE | 2017-06-03 13:26 | PD.CARD.PN ---
Subjective Subjective Remarks No chest pain or SOB this morning. EKG negative for ischemia. Trop X 2 negative (Ellen Angulo) Objective Medications Current Medications Medications (Trade) Dose Ordered Sig/Naman Route Start Time Stop Time Status Last Admin (NS Flush) 2 ml BID IV FLUSH 06/02/17 09:00 (NS Flush) 2 ml UNSCH PRN IVF 06/02/17 06:45 (Zyloprim) 100 mg DAILY PO 06/02/17 09:00 06/03/17 10:05 (Ecotrin Ec) 81 mg DAILY PO 06/02/17 09:00 06/03/17 10:06 (Lipitor) 40 mg HS PO 06/02/17 21:00 06/02/17 20:56 (Plavix) 75 mg DAILY PO 06/02/17 09:00 06/03/17 10:05 (Proscar) 5 mg DAILY PO 06/02/17 09:00 06/03/17 10:07 (Lasix) 20 mg DAILY PO 06/02/17 09:00 06/03/17 10:06 (Neurontin) 300 mg BID PO 06/02/17 09:00 06/03/17 10:06 (Synthroid) 50 mcg DAILY@0600 PO 06/02/17 08:00 06/03/17 06:23 (Prinivil) 20 mg DAILY PO 06/02/17 09:00 06/03/17 10:05 (Percocet 7.5-325 Mg) 1 tab Q6H PRN PO 06/02/17 07:45 06/02/17 21:08 (Protonix) 40 mg DAILY PO 06/02/17 09:00 06/03/17 10:05 (KCl) 10 meq DAILY PO 06/02/17 09:00 06/03/17 10:06 (Flomax) 0.4 mg HS PO 06/02/17 21:00 06/02/17 21:08 Patient Own Medication PT OWN MED: (Apremil... BID PO 06/02/17 09:00 06/03/17 09:00 Sodium Chloride 1,000 ml @ 84 mls/hr [id number] IV 06/02/17 07:45 06/02/17 22:02 Vital Signs / I&O Vital Signs Date Time Temp Pulse Resp B/P (MAP) Pulse Ox O2 Delivery O2 Flow Rate FiO2 06/03/17 12:48 97.0 64 18 130/54 (79) 98 06/03/17 08:20 98.1 70 18 141/60 (87) 100 06/03/17 06:00 58 06/03/17 05:00 47 06/03/17 04:00 48 06/03/17 03:00 52 06/03/17 03:00 97.0 57 20 125/54 (77) 99 06/03/17 02:00 58 06/03/17 01:00 52 06/03/17 00:00 48 06/02/17 23:00 53 06/02/17 23:00 97.0 60 18 105/50 (68) 97 06/02/17 22:00 56 06/02/17 21:00 58 06/02/17 20:00 64 06/02/17 20:00 96.9 61 14 109/46 (67) 97 06/02/17 19:00 72 06/02/17 18:00 78 06/02/17 17:00 71 06/02/17 16:00 80 06/02/17 15:00 97.4 81 20 109/53 (71) 96 06/02/17 15:00 82 06/02/17 14:00 75 I/O 06/02/17 06/02/17 06/02/17 06/03/17 06/03/17 06/03/17 07:00 15:00 23:00 07:00 15:00 23:00 Intake Total 500 ml 1072 ml 1294 ml 720 ml Output Total 400 ml Balance 500 ml 672 ml 1294 ml 720 ml Intake Oral 360 ml 720 ml 720 ml IV Total 500 ml 712 ml 574 ml Output Urine Total 400 ml # Voids 1 1 3 # Bowel Movements 1 Physical Exam GENERAL: Obese male laying flat in the bed. SKIN: Warm and dry. HEAD: Normocephalic. EYES: No scleral icterus. No injection or drainage. NECK: Supple, trachea midline. CARDIOVASCULAR: Regular rate and rhythm. 2/6 systolic murmur RESPIRATORY: Breath sounds equal bilaterally. No accessory muscle use. nasal cannula GASTROINTESTINAL: Abdomen soft, non-tender, nondistended. MUSCULOSKELETAL: No cyanosis, or edema. Tenderness with palpation of AC joint BACK: Nontender without obvious deformity. Laboratory Laboratory Tests Test 06/02/17 16:21 06/02/17 18:32 06/03/17 05:18 Activated Partial Thromboplast Time 102.2 SEC Troponin I LESS THAN 0.02 NG/ML Hemoglobin 13.2 GM/DL 12.6 GM/DL Hematocrit 40.0 % 37.7 % White Blood Count 10.7 TH/MM3 Red Blood Count 3.97 MIL/MM3 Mean Corpuscular Volume 95.1 FL Mean Corpuscular Hemoglobin 31.6 PG Mean Corpuscular Hemoglobin Concent 33.3 % Red Cell Distribution Width 14.0 % Platelet Count 144 TH/MM3 Mean Platelet Volume 9.1 FL Blood Urea Nitrogen 29 MG/DL Creatinine 1.34 MG/DL Random Glucose 134 MG/DL Calcium Level 7.9 MG/DL Sodium Level 141 MEQ/L Potassium Level 4.9 MEQ/L Chloride Level 109 MEQ/L Carbon Dioxide Level 26.9 MEQ/L Anion Gap 5 MEQ/L Estimat Glomerular Filtration Rate 52 ML/MIN Triglycerides Level 93 MG/DL Cholesterol Level 109 MG/DL LDL Cholesterol 44 MG/DL HDL Cholesterol 46.1 MG/DL Cholesterol/HDL Ratio 2.36 RATIO Imaging Last 72 hours Impressions Chest X-Ray 06/02/17 0426 Signed Impressions: Service Date/Time: Friday, June 02, 2017 04:55 - CONCLUSION: The lungs are clear. Cardiomegaly. Jones Candelario MD Renal Ultrasound 06/02/17 0000 Signed Impressions: Service Date/Time: Friday, June 02, 2017 20:54 - CONCLUSION: 1. No evidence of hydronephrosis. 2. Simple appearing cysts in both kidneys. 3. The left kidney is smaller than the right. Visualization is suboptimal. Adalberto Loaiza MD Aorta CTA 06/02/17 0000 Signed Impressions: Service Date/Time: Friday, June 02, 2017 07:12 - CONCLUSION: No aneurysm or dissection is identified. There is mild atherosclerotic disease with coronary artery calcification. Mikey Maradiaga MD (Ellen Angulo) Assessment and Plan Assessment and Plan Left shoulder, neck pain in a patient with CAD, R/O ACS. Seems of musculoskeletal origin. Lightheadedness Bradycardia ASHD s/p coronary stent 2014. Negative cardiac PET 10/2016 Acute renal insufficiency Anemia Hypertension Hyperlipidemia GERD Diabetes mellitus PLAN: The patient is clear for discharge from a cardiac standpoint. We will follow up the patient outpatient. We will complete holter or event monitor to exclude symptomatic bradycardia. Left shoulder symptoms seem to be of musculoskeletal origin. Has pain with direct palpation AC joint. Advised that the patient maintain a BP log and bring it to his follow up appointment. The patient seen and evaluated by Dr Salinas is completed face to face encounter , completed physical exam and participated in evaluation and management. (Ellen Angulo) Assessment and Plan Overall doing better , pain seems muscular. (Riley Salinas MD) Ellen Angulo Jun 03, 2017 13:26 Riley Salinas MD Jun 03, 2017 14:33
--- NOTE | 2017-06-03 14:02 | EKG ---
Date Performed: 06/02/2017 Time Performed: 06:11:41 PTAGE: 76 years EKG: Sinus rhythm NONSPECIFIC T-WAVE ABNORMALITY BORDERLINE ECG Compared to prior tracing no significant change PREVIOUS TRACING : 06/02/2017 04.45 DOCTOR: Yakov Mondragon Interpretating Date/Time 06/03/2017 14:00:02
--- NOTE | 2017-06-06 15:28 | HHI.DS ---
Discharge Summary Admission Date Jun 02, 2017 at 06:38 Discharge Date: Jun 03, 2017 Admitting Diagnosis ACS Brief History This was a pleasant 76-year-old male who presented to the [facility] Emergency Room with acute onset of left shoulder pain radiating into the neck area. He described it was a sharp uncontrolled pain that he had never felt before. The patient denied any recent lifting or pulling with his shoulders except for picking up a crock pot full of salsa this past evening. The patient did have a history of cardiovascular disease, took two nitroglycerin at home with no relief. The patient states he had been in his usual state of health up until this lt. shoulder/chest pain. The pain was not related to the breathing. The patient did have a history of headaches but denied any headache at this current time. CBC/BMP: 06/03/17 0518 06/03/17 0518 Imaging Last Impressions Chest X-Ray 06/02/17 0426 Signed Impressions: Service Date/Time: Friday, June 02, 2017 04:55 - CONCLUSION: The lungs are clear. Cardiomegaly. Jones Candelario MD Renal Ultrasound 06/02/17 0000 Signed Impressions: Service Date/Time: Friday, June 02, 2017 20:54 - CONCLUSION: 1. No evidence of hydronephrosis. 2. Simple appearing cysts in both kidneys. 3. The left kidney is smaller than the right. Visualization is suboptimal. Adalberto Loaiza MD Aorta CTA 06/02/17 0000 Signed Impressions: Service Date/Time: Friday, June 02, 2017 07:12 - CONCLUSION: No aneurysm or dissection is identified. There is mild atherosclerotic disease with coronary artery calcification. Mikey Maradiaga MD PE at Discharge General Appearance: No Acute Distress, Pale (mild), Obese Eyes Eye Exam: Pupils Equal, Pupils Reactive Ears & Nose Ears & Nose Exam: Nasal Mucosa [place] (pale) Throat Throat Exam: Oral Mucosa [place] & Moist (pale) Neck Neck Exam: Neck Supple (short stocky) Pulmonary Resp Exam: Diminished Breath Sounds (mild, no active rhonchi or wheeze) Cardiology CV Exam: Bradycardia Gastrointestinal/Abdomen GI Exam: Soft (taut), Non-Tender, Bowel Sounds Present GI Remarks BM 1 today Integumentary Skin Exam: Clear, Warm, Dry, Intact Extremeties Extremities Exam: Trace Edema Neurologic Neuro Exam: Awake, Oriented, Speech Clear, Moving All Extremities Hospital Course On arrival to the emergency room, he was given two more nitroglycerin and recieved some relief. The patient denied any chest pain but did note some shortness of breath on arrival to the [facility] Emergency Room according to his . These are the diagnosis and plans used to care for patient during this brief stay. 1. Left shoulder pain radiating up into the neck, rule out any type of cardiovascular event No further complaints of chest pain , no shortness of breath at rest , no acute left shoulder pain or neck pain. CT scan that ruled out any type of aneurysm or dissection. enzymes negative 2, mild drop in hemoglobin and platelets, heparin drip DC'd per cardiology Patient's cardiology is planning a visit and will followup with patient's symptoms. Appreciate his plan of care for any further testing for the heart. Currently on Plavix 2. Gastroesophageal reflux disease (GERD). PUD prophylaxis Protonix Abdomen taut, obesity and possible mild bloating. Denied any cough with swallow 3. Acute kidney injury with renal insufficiency; currently IV hydration at 84 cc an hour, monitor for any congestion Renal ultrasound complete, no acute findings simple cyst noted, no hydronephrosis, labs show mild improvement BUN 29 creatinine 1.34 4. Cardiomegaly, compensated. No acute findings of congestive heart failure. Plavix, Lasix, Prinivil, potassium, oxygen if needed 5. Diabetes type 2. Medications p.o. The patient will be on Accu-Cheks a.c. and at bedtime, an ADA diet and sliding scale. 6. history of dermatitis bilateral arms Monitor for any worsening , medical management 7. Benign prostate hypertrophy. Recent urethral stretching. Will monitor his urine output. The patient at this time is not having any problems with his stream and he is currently being managed on Flomax. Monitor medical management 8. Hyperlipidemia. The patient is currently on Lipitor for his medical management. Patient was seen, examined by myself, Dr Ching, today Discussed with patient and his Patient was medically stable for Discharge home today Follow-up with primary physician regarding shoulder pain I called his primary physician a message Follow-up with pulmonology regarding groundglass opacities and consideration for sleep study Discussed with mid level provider Pt Condition on Discharge: Stable Discharge Disposition: Discharge Home Discharge Instructions DIET: Follow Instructions for: Heart Healthy Diet, Diabetic Diet Activities you can perform: Weight Bearing as Davin Follow up Referrals: PCP Follow-up - 2-[address] Alberts Pulmonology with Kwan Bowens MD Sleep study and regarding ground glass opacities Continued Medications: Allopurinol (Allopurinol) 100 Mg Tab 100 MG PO DAILY for Gout, #30 TAB 0 Refills Apremilast (Otezla) 30 Mg Tab 30 MG PO BID for psoriasis, #[address] (Aspir-81) 81 Mg Tabdr 81 MG PO DAILY for CAD for 30 Days, TAB Atorvastatin (Atorvastatin) 40 Mg Tab 40 MG PO HS for Cholesterol Management, #30 TAB 0 Refills Clopidogrel (Clopidogrel) 75 Mg Tab 75 MG PO DAILY for Blood Clot Prevention, #30 TAB 0 Refills Finasteride (Finasteride) 5 Mg Tab 5 MG PO DAILY for Manage Prostate Problems, #30 TAB 0 Refills Do not crush. Furosemide (Furosemide) 20 Mg Tab 20 MG PO DAILY, #30 TAB 0 Refills Gabapentin (Gabapentin) 300 Mg Cap 300 MG PO BID, #60 CAP 0 Refills Levothyroxine (Levothyroxine) 50 Mcg Tab 50 MCG PO DAILY for Thyroid, #30 TAB 0 Refills Lisinopril (Lisinopril) 20 Mg Tab 20 MG PO DAILY, #30 TAB 0 Refills Meloxicam (Mobic) 15 Mg Tab 15 MG PO DAILY for Arthritis pain, TAB 0 Refills Metformin (Metformin) 500 Mg Tab 500 MG PO DAILY for Blood Sugar Management, #30 TAB 0 Refills With a meal Oxycodone-Acetaminophen (Percocet) 7.5-325 mg Tab 1 TAB PO Q6H PRN for PAIN SCALE 6 TO 10, #20 TAB 0 Refills Pantoprazole (Pantoprazole) 40 Mg Tab 40 MG PO DAILY for Reflux, #30 TAB 0 Refills Potassium Chloride ER (Potassium Chloride ER) 10 Meq Tab 10 MEQ PO DAILY for Electrolyte Replacement, #30 TAB 0 Refills Tamsulosin (Tamsulosin) 0.4 Mg Cap 0.4 MG PO HS for Manage Prostate Problems, #30 CAP 0 Refills Sailaja Rust Jun 06, 2017 15:28
== END 2017-06-03 17:16 | disposition home or self-care (01) ==
LOC: PHED 03:50 → INTOOBSV 06:38 → PHEDA 06:38 → HCIS 10:55
PROVIDERS: ADMIT Specialist; ATTEND Specialist
DX: M25.512 Pain in left shoulder (principal); M54.2 Cervicalgia; R07.9 Chest pain, unspecified; I25.10 Atherosclerotic heart disease of native coronary artery without angina pectoris; N17.9 Acute kidney failure, unspecified; I10 Essential (primary) hypertension; I51.7 Cardiomegaly; K21.9 Gastro-esophageal reflux disease without esophagitis; E11.9 Type 2 diabetes mellitus without complications; N40.0 Benign prostatic hyperplasia without lower urinary tract symptoms; D64.9 Anemia, unspecified; E03.9 Hypothyroidism, unspecified; E78.5 Hyperlipidemia, unspecified; E66.9 Obesity, unspecified; Z68.41 Body mass index [BMI] 40.0-44.9, adult; X50.0XXA Overexertion from strenuous movement or load, initial encounter; Z95.5 Presence of coronary angioplasty implant and graft
CPT/HCPCS: 71010; 71275; 74174; 76775; 80048; 80061; 82550; 82552; 83735; 84484; 85014; 85018; 85025; 85027; 85610; 85730; 93005; 96361; 96365; 96366; 96374; 96375; 99285; G0378; J1100; J1644; J2270; J2405; J7030; J7040; Q9967

== ENCOUNTER 2017-07-31 03:01 | Emergency (ER) | payer MEDICARE, BC ==
[~2017-07-31] VITALS: Ht 167.6 cm; Wt 117.6 kg
[~2017-07-31 03:01] MED LIST changes: -ACET500T3 PO; -ACYC800T PO; +POTA10TA2 PO; -POTA10TA8 PO
[2017-07-31 03:07] VITALS: BP 103/65; PULSE 99; RESP 28; TEMP 97.8; O2SAT 96
[2017-07-31] MEDS ORDERED: NITR1SUB3 SL (03:32)
[2017-07-31 03:45] VITALS: BP 112/59; PULSE 96; RESP 20; O2SAT 100
[2017-07-31] MEDS ORDERED: SODIUM CHLORIDE 0.9% FLUSH 10 ML FLUSH IV FLUSH PRN (03:45)
[2017-07-31 03:53] LABS: AUTOMATED NEUTROPHIL # 5.7 TH/MM3 (1.8-7.7); BASOPHIL # 0.1 TH/MM3 (0-0.2); BASOPHIL % 0.6 % (0.0-2.0); EOSINOPHIL # 0.2 TH/MM3 (0-0.4); EOSINOPHIL % 2.2 % (0.0-4.0); HEMATOCRIT 44.3 % (39.0-51.0); HEMO FLAGS DIFF FINAL; LYMPHOCYTE # 2.4 TH/MM3 (1.0-4.8); MEAN CELL VOLUME 93.8 FL (80.0-100.0); MEAN CORPUSCULAR HEMOGLOBIN 30.1 PG (27.0-34.0); NEUT % 62.2 % (16.0-70.0); PLATELET COUNT 191 TH/MM3 (150-450); RED BLOOD COUNT 4.73 MIL/MM3 (4.50-5.90); RED CELL DISTRIBUTION WIDTH 13.4 % (11.6-17.2); WHITE BLOOD COUNT 9.2 TH/MM3 (4.0-11.0)
[2017-07-31 04:08] LABS: CHLORIDE 110 MEQ/L (98-107); POTASSIUM 4.5 MEQ/L (3.5-5.1); SODIUM (NA) 140 MEQ/L (136-145)
[2017-07-31 04:11] LABS: ANION GAP 7 MEQ/L (5-15); BICARBONATE 22.6 MEQ/L (21.0-32.0)
[2017-07-31 04:12] LABS: BLOOD UREA NITROGEN 39 MG/DL (7-18)
[2017-07-31 04:14] LABS: ALT (GPT) 38 U/L (12-78); AST (GOT) 19 U/L (15-37)
[2017-07-31 04:15] LABS: GLOMERULAR FILTRATION RATE 37 ML/MIN (>89)
[2017-07-31 04:16] LABS: TOTAL BILIRUBIN ADULT 0.3 MG/DL (0.2-1.0)
[2017-07-31 04:17] LABS: ALKALINE PHOSPHATASE 70 U/L (45-117)
--- NOTE | 2017-07-31 04:23 | PD ---
HPI Chief Complaint: Pain: Acute or Chronic Time Seen by Provider: 03:23 Travel History International Travel<30 days: No Contact w/Intl Traveler<30days: No Traveled to known affect area: No History of Present Illness HPI The patient is a 77-year-old male who comes in with a feeling of abdominal bloating for 3-4 days. He also has numbness in his legs but this is gone on for years. He does have a history of peripheral neuropathy. He is a borderline diabetic and takes metformin. He denies any nausea, vomiting or diarrhea. He has been on Otezla for several years for his psoriasis. He has minimal abdominal pain. He has not been taking his Percocet. He does have a history of renal insufficiency and this is why they took him off meloxicam. PFSH Past Medical History Arthritis: Yes Autoimmune Disease: Yes (PSORIASIS) Cancer: No Cardiac Catheterization: Yes Cardiovascular Problems: Yes High Cholesterol: Yes Diabetes: Yes Patient Takes Glucophage: Yes (07/30/17 0800) Diminished Hearing: No GERD: Yes Gout: Yes Genitourinary: Yes (PROSTATE) Hypertension: Yes Neurologic: No Psychiatric: No Reproductive: No Respiratory: No Thyroid Disease: Yes Tetanus Vaccination: Unknown Influenza Vaccination: Yes Past Surgical History Cardiac Surgery: Yes (3 STENTS) Social History Alcohol Use: Yes (OCCASIONAL) Tobacco Use: No Substance Use: No Allergies-Medications (Allergen,Severity, Reaction): Coded Allergies: No Known Allergies (Unverified Adverse Reaction, Unknown, 07/31/17) Reported Meds & Prescriptions Reported Meds & Active Scripts Active Simethicone 180 Mg Cap 180 Mg PO QID PRN Otezla (Apremilast) 30 Mg Tab 30 Mg PO BID Aspir-81 (Aspirin) 81 Mg Tabdr 81 Mg PO DAILY 30 Days Reported Nitroglycerin SL (Nitroglycerin) 0.4 Mg Subl 0.4 Mg SL DIRECTED PRN ONE TABLET UNDER THE TONGUE NEEDED FOR CHEST PAIN, MAY REPEAT EVERY FIVE MINUTES FOR A TOTAL OF 3 DOSES OR CALL 911 IF NO RELIEF Potassium Chloride ER (Potassium Chloride) 10 Meq Tab 10 Meq PO DAILY Tamsulosin (Tamsulosin HCl) 0.4 Mg Cap 0.4 Mg PO HS Pantoprazole (Pantoprazole Sodium) 40 Mg Tab 40 Mg PO DAILY Allopurinol 100 Mg Tab 100 Mg PO DAILY Furosemide 20 Mg Tab 20 Mg PO DAILY Finasteride 5 Mg Tab 5 Mg PO DAILY Do not crush. Clopidogrel (Clopidogrel Bisulfate) 75 Mg Tab 75 Mg PO DAILY Gabapentin 300 Mg Cap 300 Mg PO BID Levothyroxine (Levothyroxine Sodium) 50 Mcg Tab 50 Mcg PO DAILY Atorvastatin (Atorvastatin Calcium) 40 Mg Tab 40 Mg PO HS Metformin (Metformin HCl) 500 Mg Tab 500 Mg PO DAILY With a meal Lisinopril 20 Mg Tab 20 Mg PO DAILY Review of Systems Except as stated in HPI: all other systems reviewed are Neg Physical Exam Narrative GENERAL: The patient is alert, oriented 3 in no apparent distress. His vital signs show respirations of 28 but otherwise normal. When I see the patient is respirations are 22. Oximetry is 96%. SKIN: Focused skin assessment warm/dry. HEAD: Atraumatic. Normocephalic. EYES: Pupils equal and round. No scleral icterus. No injection or drainage. ENT: No nasal bleeding or discharge. Mucous membranes pink and moist. NECK: Trachea midline. No JVD. CARDIOVASCULAR: Regular rate and rhythm. No murmur appreciated. RESPIRATORY: No accessory muscle use. Clear to auscultation. Breath sounds equal bilaterally. GASTROINTESTINAL: Abdomen soft, non-tender, slightly distended. Hepatic and splenic margins not palpable. No guarding or rebound is present. MUSCULOSKELETAL: No obvious deformities. No clubbing. No cyanosis. There is 2+ , bilateral lower extremity edema. NEUROLOGICAL: Awake and alert. No obvious cranial nerve deficits. Motor grossly within normal limits. Normal speech. PSYCHIATRIC: Appropriate mood and affect; insight and judgment normal. Data Data Last Documented VS Vital Signs Date Time Temp Pulse Resp B/P (MAP) Pulse Ox O2 Delivery O2 Flow Rate FiO2 07/31/17 04:01 96 20 07/31/17 03:45 112/59 (76) 100 07/31/17 03:07 97.8 Orders Orders Complete Blood Count With Diff (07/31/17 03:34) Comprehensive Metabolic Panel (07/31/17 03:34) Lipase (07/31/17 03:34) Urinalysis - C+S If Indicated (07/31/17 03:34) Ct Abd/Pel W/O Iv Contrast (07/31/17 03:34) Iv Access Insert/Monitor (07/31/17 03:34) Ecg Monitoring (07/31/17 03:34) Oximetry (07/31/17 03:34) Sodium Chloride 0.9% Flush (Ns Flush) (07/31/17 03:45) Ondansetron Inj (Zofran Inj) (07/31/17 04:45) Morphine Inj (Morphine Inj) (07/31/17 04:45) Simethicone Chew (Phazyme Chew) (07/31/17 05:00) Labs Laboratory Tests Test 07/31/17 03:30 White Blood Count 9.2 TH/MM3 Red Blood Count 4.73 MIL/MM3 Hemoglobin 14.2 GM/DL Hematocrit 44.3 % Mean Corpuscular Volume 93.8 FL Mean Corpuscular Hemoglobin 30.1 PG Mean Corpuscular Hemoglobin Concent 32.0 % Red Cell Distribution Width 13.4 % Platelet Count 191 TH/MM3 Mean Platelet Volume 8.3 FL Neutrophils (%) (Auto) 62.2 % Lymphocytes (%) (Auto) 26.0 % Monocytes (%) (Auto) 9.0 % Eosinophils (%) (Auto) 2.2 % Basophils (%) (Auto) 0.6 % Neutrophils # (Auto) 5.7 TH/MM3 Lymphocytes # (Auto) 2.4 TH/MM3 Monocytes # (Auto) 0.8 TH/MM3 Eosinophils # (Auto) 0.2 TH/MM3 Basophils # (Auto) 0.1 TH/MM3 CBC Comment DIFF FINAL Differential Comment Blood Urea Nitrogen 39 MG/DL Creatinine 1.80 MG/DL Random Glucose 130 MG/DL Total Protein 7.3 GM/DL Albumin 3.0 GM/DL Calcium Level 8.5 MG/DL Alkaline Phosphatase 70 U/L Aspartate Amino Transf (AST/SGOT) 19 U/L Alanine Aminotransferase (ALT/SGPT) 38 U/L Total Bilirubin 0.3 MG/DL Sodium Level 140 MEQ/L Potassium Level 4.5 MEQ/L Chloride Level 110 MEQ/L Carbon Dioxide Level 22.6 MEQ/L Anion Gap 7 MEQ/L Estimat Glomerular Filtration Rate 37 ML/MIN Lipase 105 U/L MDM Medical Decision Making Medical Screen Exam Complete: Yes Emergency Medical Condition: Yes Medical Record Reviewed: Yes Interpretation(s) The CT abdomen/pelvis without IV contrast shows no acute abnormality within the abdomen/pelvis. There is mild atelectasis of lung bases, atrophic left kidney with nonobstructing lower pole stone and several cysts within the kidneys. Differential Diagnosis Distention from intraluminal gas, small bowel obstruction-unlikely, ileus, medication side effect, peripheral neuropathy Narrative Course The patient's main pain is chronic peripheral neuropathy pain. It is worse since he was taken off of meloxicam because of his renal insufficiency. His abdominal distention is apparently bloating from intraluminal gas. He will be given simethicone Diagnosis Primary Impression: Peripheral neuropathy Additional Impression: Intestinal colic Additional Instructions: The medicine for gas is taken 4 times daily. He do not need to take it if you do not have any symptoms from the gas. As we discussed, follow-up with your pain management doctor with regard to the peripheral neuropathy. I understand this is a bad pain and very frustrating to deal with. Med/Other Pt SpecificInfo: Prescription(s) given Scripts Simethicone (Simethicone) 180 Mg Cap 180 MG PO QID Y for GAS RETENTION, #100 CAP 0 Refills Prov: Kush Jacob MD 07/31/17 Disposition: 01 DISCHARGE HOME Condition: Stable Kush Jacob MD Jul 31, 2017 04:23
--- NOTE | 2017-07-31 04:44 | RADRPT ---
EXAM DATE/TIME: 07/31/2017 03:41 [facility] COMPARISON: CTA THORACIC ABDOMINAL AORTA W 3D RECON, June 02, 2017, 7:12. INDICATIONS : Distention. Abdominal pain. Numbness in legs. ORAL CONTRAST: No oral contrast ingested. RADIATION DOSE: 22.36 CTDIvol (mGy) MEDICAL HISTORY : Gastroesophageal reflux disease. Diabetes mellitus type 2. Hypertension. SURGICAL HISTORY : Fusion, lumbar. ENCOUNTER: Initial ACUITY: 1 day PAIN SCALE: 10/10 LOCATION: Bilateral lower quadrant upper quadrant TECHNIQUE: Volumetric scanning of the abdomen and pelvis was performed. Using automated exposure control and ad justment of the mA and/or kV according to patient size, radiation dose was kept as low as reasonably achievable to obtain optimal diagnostic quality images. DICOM format image data is available electro nically for review and comparison. FINDINGS: LOWER LUNGS: Mild bibasilar atelectasis. LIVER: Homogeneous density without lesion. There is no dilation of the biliary tree. No calcified gallston es. SPLEEN: Normal size without lesion. PANCREAS: Within normal limits. KIDNEYS: Left kidney is atrophic and with a 5 mm nonobstructing lower pole stone. Several cysts are seen of th e right kidney measuring up to 3.3 cm. There is a 2 cm cyst of the left mid zone. No evidence of obst ructive uropathy on either side.. ADRENAL GLANDS: Within normal limits. VASCULAR: There is no aortic aneurysm. BOWEL/MESENTERY: The stomach, small bowel, and colon demonstrate no acute abnormality. There is no free intraperitone al air or fluid. ABDOMINAL WALL: Within normal limits. RETROPERITONEUM: There is no lymphadenopathy. BLADDER: No wall thickening or mass. REPRODUCTIVE: Within normal limits. INGUINAL: There is no lymphadenopathy or hernia. MUSCULOSKELETAL: No acute bony abnormality demonstrated. There are degenerative changes of the spine, especially lower lumbar. CONCLUSION: 1. No acute abnormality seen within the abdomen or pelvis. 2. Mild atelectasis of the visualized lung bases. 3. Atrophic left kidney with a nonobstructing lower pole stone. 4. Several cysts of both kidneys. Mikey Phipps MD on July 31, 2017 at 4:39 Board Certified Radiologist. This report was verified electronically.
[2017-07-31] MEDS ORDERED: MORPHINE SULFATE 4 MG/ML INJ IV PUSH ONE (04:45)
[2017-07-31] MEDS ORDERED: ONDANSETRON HCL 4 MG/2 ML VIAL IV ONE (04:45)
[2017-07-31] MEDS ORDERED: SIME180C2 PO (04:59)
[2017-07-31] MEDS ORDERED: SIMETHICONE 125 MG CHEWABLE TAB PO ONE (05:00)
[2017-07-31 05:20] VITALS: BP 108/57
== END 2017-07-31 05:25 | disposition home or self-care (01) ==
LOC: PHED 03:01
DX: G62.9 Polyneuropathy, unspecified (principal); R10.84 Generalized abdominal pain; I10 Essential (primary) hypertension; E78.00 Pure hypercholesterolemia, unspecified; E11.9 Type 2 diabetes mellitus without complications; Z79.84 Long term (current) use of oral hypoglycemic drugs; Z79.899 Other long term (current) drug therapy
CPT/HCPCS: 74176; 80053; 83690; 85025; 96374; 96375; 99285; J2270; J2405

== ENCOUNTER 2017-08-10 10:23 | Emergency (ER) | payer MEDICARE, BC ==
[~2017-08-10] VITALS: Ht 167.6 cm; Wt 136.0 kg
[~2017-08-10 10:23] MED LIST changes: -MOBI15TA PO; +NITR1SUB3 SL; -PERC7.5T13 PO; +SIME180C2 PO
[2017-08-10 10:32] VITALS: BP 131/59; PULSE 91; RESP 16; TEMP 97.5; O2SAT 99
--- NOTE | 2017-08-10 11:11 | PD ---
HPI Chief Complaint: Flank/Kidney Pain Time Seen by Provider: 10:52 Travel History International Travel<30 days: No Contact w/Intl Traveler<30days: No Traveled to known affect area: No History of Present Illness HPI 77-year-old male came to the emergency room with history of sudden onset left hip/back pain. Patient says that usually she he has a right sided back pain going down to his legs. He has history of peripheral neuropathy. He was seen by Dr. Jung from neurology for the first time yesterday who has recommended an MRI which hasn't been done yet. Patient says that last night his right-sided pain was bothering him as usual and he took 3 gabapentin. Because of which she was able to sleep well at night but this morning when he woke up and started to take steps he started getting excruciating left sided pain. This is new for him. He was nauseous at that point and some shortness of breath. He was unable to ambulate too far when his called 911. Vital signs have been stable. Patient was seen in the emergency room about 10 days ago here and a CAT scan was done at that point for his usual right-sided pain. No radiation of the pain. No aggravating or relieving factors identified. Currently the pain is 8 out of 10 as per the patient. PFSH Past Medical History Narrative Medical List of his past medical, surgical, social and family history is reviewed from the nursing note. Arthritis: Yes Autoimmune Disease: Yes (PSORIASIS) Cancer: No Cardiac Catheterization: Yes Cardiovascular Problems: Yes High Cholesterol: Yes Diabetes: Yes Patient Takes Glucophage: No Diminished Hearing: No GERD: Yes Gout: Yes Genitourinary: Yes (PROSTATE) Hypertension: Yes Neurologic: No Psychiatric: No Reproductive: No Respiratory: No Thyroid Disease: Yes Influenza Vaccination: Yes Past Surgical History Appendectomy: Yes Cardiac Surgery: Yes (3 STENTS) Genitourinary Surgery: Yes (TURP) Social History Alcohol Use: Yes (OCCASIONAL) Tobacco Use: No Substance Use: No Allergies-Medications (Allergen,Severity, Reaction): Coded Allergies: No Known Allergies (Unverified Adverse Reaction, Unknown, 08/13/17) Comments No known drug allergies. Reported Meds & Prescriptions Reported Meds & Active Scripts Active Ultram (Tramadol HCl) 50 Mg Tab 50 Mg PO Q6H PRN Simethicone 180 Mg Cap 180 Mg PO QID PRN Aspir-81 (Aspirin) 81 Mg Tabdr 81 Mg PO DAILY 30 Days Reported Pantoprazole (Pantoprazole Sodium) 40 Mg Tab 40 Mg PO DAILY Nitroglycerin SL (Nitroglycerin) 0.4 Mg Subl 0.4 Mg SL DIRECTED PRN ONE TABLET UNDER THE TONGUE NEEDED FOR CHEST PAIN, MAY REPEAT EVERY FIVE MINUTES FOR A TOTAL OF 3 DOSES OR CALL 911 IF NO RELIEF Potassium Chloride ER (Potassium Chloride) 10 Meq Tab 10 Meq PO DAILY Tamsulosin (Tamsulosin HCl) 0.4 Mg Cap 0.4 Mg PO HS Allopurinol 100 Mg Tab 100 Mg PO DAILY Furosemide 20 Mg Tab 20 Mg PO DAILY Finasteride 5 Mg Tab 5 Mg PO DAILY Do not crush. Clopidogrel (Clopidogrel Bisulfate) 75 Mg Tab 75 Mg PO DAILY Gabapentin 300 Mg Cap 300 Mg PO BID Atorvastatin (Atorvastatin Calcium) 40 Mg Tab 40 Mg PO HS Metformin (Metformin HCl) 500 Mg Tab 500 Mg PO DAILY With a meal Lisinopril 20 Mg Tab 20 Mg PO DAILY Narrative Medication List of his home medications reviewed from the nursing note. Review of Systems Except as stated in HPI: all other systems reviewed are Neg Gastrointestinal: Positive: Nausea Musculoskeletal: Positive: Pain Physical Exam Narrative GENERAL: Awake, alert, moderate distress, obese SKIN: Focused skin assessment warm/dry. HEAD: Atraumatic. Normocephalic. EYES: Pupils equal and round. No scleral icterus. No injection or drainage. ENT: No nasal bleeding or discharge. Mucous membranes pink and moist. NECK: Trachea midline. No JVD. CARDIOVASCULAR: Regular rate and rhythm. No murmur appreciated. RESPIRATORY: No accessory muscle use. Clear to auscultation. Breath sounds equal bilaterally. GASTROINTESTINAL: Abdomen soft, non-tender, nondistended. Hepatic and splenic margins not palpable. MUSCULOSKELETAL: No obvious deformities. No clubbing. No cyanosis. No edema. NEUROLOGICAL: Awake and alert. No obvious cranial nerve deficits. Motor grossly within normal limits. Normal speech. PSYCHIATRIC: Appropriate mood and affect; insight and judgment normal. Data Data Last Documented VS Orders Orders Basic Metabolic Panel (Bmp) (08/10/17 11:17) Complete Blood Count With Diff (08/10/17 11:17) Urinalysis - C+S If Indicated (08/10/17 11:17) Ct Abd/Pel W/O Iv Contrast (08/10/17 11:17) Iv Access Insert/Monitor (08/10/17 11:17) Ecg Monitoring (08/10/17 11:17) Oximetry (08/10/17 11:17) Morphine Inj (Morphine Inj) (08/10/17 11:30) Ondansetron Inj (Zofran Inj) (08/10/17 11:30) Sodium Chloride 0.9% Flush (Ns Flush) (08/10/17 11:30) Nitroglycerin Sl (Nitrostat Sl) (08/10/17 12:59) Ed Discharge Order (08/10/17 13:05) Morphine Inj (Morphine Inj) (08/10/17 14:30) Labs Laboratory Tests Test 08/10/17 11:20 08/10/17 13:30 White Blood Count 8.9 TH/MM3 Red Blood Count 4.37 MIL/MM3 Hemoglobin 13.9 GM/DL Hematocrit 41.2 % Mean Corpuscular Volume 94.2 FL Mean Corpuscular Hemoglobin 31.9 PG Mean Corpuscular Hemoglobin Concent 33.9 % Red Cell Distribution Width 14.1 % Platelet Count 173 TH/MM3 Mean Platelet Volume 8.6 FL Neutrophils (%) (Auto) 61.4 % Lymphocytes (%) (Auto) 24.0 % Monocytes (%) (Auto) 8.9 % Eosinophils (%) (Auto) 5.2 % Basophils (%) (Auto) 0.5 % Neutrophils # (Auto) 5.5 TH/MM3 Lymphocytes # (Auto) 2.1 TH/MM3 Monocytes # (Auto) 0.8 TH/MM3 Eosinophils # (Auto) 0.5 TH/MM3 Basophils # (Auto) 0.0 TH/MM3 CBC Comment DIFF FINAL Differential Comment Blood Urea Nitrogen 32 MG/DL Creatinine 1.30 MG/DL Random Glucose 121 MG/DL Calcium Level 8.6 MG/DL Sodium Level 140 MEQ/L Potassium Level 4.2 MEQ/L Chloride Level 108 MEQ/L Carbon Dioxide Level 23.9 MEQ/L Anion Gap 8 MEQ/L Estimat Glomerular Filtration Rate 53 ML/MIN Urine Color YELLOW Urine Turbidity CLEAR Urine pH 5.0 Urine Specific [place] 1.020 Urine Protein NEG mg/dL Urine Glucose (UA) NEG mg/dL Urine Ketones NEG mg/dL Urine Occult Blood NEG Urine Nitrite NEG Urine Bilirubin NEG Urine Urobilinogen LESS THAN 2.0 MG/DL Urine Leukocyte Esterase NEG Urine RBC LESS THAN 1 /hpf Urine WBC 1 /hpf Urine Squamous Epithelial Cells 2 /hpf Urine Mucus FEW /lpf Microscopic Urinalysis Comment CULT NOT INDICATED MDM Medical Decision Making Medical Screen Exam Complete: Yes Emergency Medical Condition: Yes Medical Record Reviewed: Yes Differential Diagnosis SI arthritis, renal colic Narrative Course 11:39 AM patient has been given pain medication. Awaiting for blood test and CAT scan to be done and resulted. 12:37 PM blood test results are back and within acceptable limit. CT scan is negative for anything acute. Still waiting for the UA. Patient will be ambulated. If he does okay I'll be discharging him home. 1:07 PM patient ambulated well Procedures EKG Prior to Arrival: No Diagnosis Primary Impression: Musculoskeletal pain Additional Impression: Sacroiliac joint pain Referrals: Primary Care Physician 2 days Additional Instructions: Please return to the ER if the condition worsens or any other new concerns. Otherwise follow-up with your primary care. Take your gabapentin for pain relief as is supposed to. [place] the other pain medication that has been prescribed for severe pain. Med/Other Pt SpecificInfo: Prescription(s) given Disposition: 01 DISCHARGE HOME Condition: Stable Zia Tucker MD Aug 10, 2017 11:11
[2017-08-10 11:28] LABS: AUTOMATED NEUTROPHIL # 5.5 TH/MM3 (1.8-7.7); BASOPHIL % 0.5 % (0.0-2.0); EOSINOPHIL # 0.5 TH/MM3 (0-0.4); EOSINOPHIL % 5.2 % (0.0-4.0); HEMATOCRIT 41.2 % (39.0-51.0); HEMO FLAGS DIFF FINAL; LYMPHOCYTE # 2.1 TH/MM3 (1.0-4.8); MEAN CELL VOLUME 94.2 FL (80.0-100.0); MEAN CORPUSCULAR HEMOGLOBIN 31.9 PG (27.0-34.0); MEAN CORPUSCULAR HGB CONC 33.9 % (32.0-36.0); MONO % 8.9 % (0.0-8.0); NEUT % 61.4 % (16.0-70.0); PLATELET COUNT 173 TH/MM3 (150-450); RED BLOOD COUNT 4.37 MIL/MM3 (4.50-5.90); RED CELL DISTRIBUTION WIDTH 14.1 % (11.6-17.2); WHITE BLOOD COUNT 8.9 TH/MM3 (4.0-11.0)
[2017-08-10] MEDS ORDERED: SODIUM CHLORIDE 0.9% FLUSH 10 ML FLUSH IV FLUSH PRN (11:30)
[2017-08-10] MEDS ORDERED: ONDANSETRON HCL 4 MG/2 ML VIAL IVP ONE (11:30)
[2017-08-10] MEDS ORDERED: MORPHINE SULFATE 4 MG/ML INJ IV PUSH ONE ×2 (11:30→14:30)
[2017-08-10 11:46] LABS: BICARBONATE 23.9 MEQ/L (21.0-32.0); POTASSIUM 4.2 MEQ/L (3.5-5.1)
--- NOTE | 2017-08-10 11:48 | RADRPT ---
EXAM DATE/TIME: 08/10/2017 11:34 [facility] COMPARISON: CT ABDOMEN & PELVIS W/O CONTRAST, July 31, 2017, 3:41. INDICATIONS : Left flank pain, shortness of breath.Right back pain. ORAL CONTRAST: No oral contrast ingested. RADIATION DOSE: 22.61 CTDIvol (mGy) MEDICAL HISTORY : Cardiovascular disease. Hypertension. Gastroesophageal reflux disease.Thyroid disease; diabetes SURGICAL HISTORY : Appendectomy. Spinal ENCOUNTER: Initial ACUITY: 4 - 6 months PAIN SCALE: 5/10 LOCATION: Right lower back and flank. TECHNIQUE: Volumetric scanning of the abdomen and pelvis was performed. Using automated exposure control and ad justment of the mA and/or kV according to patient size, radiation dose was kept as low as reasonably achievable to obtain optimal diagnostic quality images. DICOM format image data is available electro nically for review and comparison. FINDINGS: LOWER LUNGS: The visualized lower lungs demonstrates scattered groundglass densities. LIVER: Homogeneous densi ty without lesion. There is no dilation of the biliary tree. No calcified gallstones. SPLEEN: Normal size without lesion. PANCREAS: Within normal limits. KIDNEYS: Atrophic left kidney. Bilateral renal densities.. There is no mass, stone, or hydronephrosis on the right. No hydronephrosis the left. Lower pole calculus left kidney is unchanged.. ADRENAL GLANDS: Within normal limits. VASCULAR: There is no aortic aneurysm. BOWEL/MESENTERY: The stomach, small bowel, and colon demonstrate no acute abnormality. There is no free intraperitone al air or fluid. Small hiatal hernia. ABDOMINAL WALL: Within normal limits. RETROPERITONEUM: There is no lymphadenopathy. BLADDER: No wall thickening or mass. REPRODUCTIVE: Within normal limits. INGUINAL: There is no lymphadenopathy or hernia on the right. Small fat containing left inguinal hernia. MUSCULOSKELETAL: Within normal limits for patient age. CONCLUSION: 1. Atrophic left kidney with nonobstructing lower pole left renal calculus. This is unchanged. 2. Bilateral renal low-density likely cysts. 3. No acute inflammatory process. 4. Small hiatal hernia Piero Koch MD on August 10, 2017 at 11:41 Board Certified Radiologist. This report was verified electronically.
[2017-08-10 12:14] VITALS: O2SAT 98
[2017-08-10 12:30] VITALS: BP 127/63; PULSE 87; RESP 18; O2SAT 98
[2017-08-10] MEDS ORDERED: NITROGLYCERIN 0.4 MG SL 25 TABS/BTL SL ONE (12:59)
[2017-08-10] MEDS ORDERED: HYDR-3516 PO (13:00)
[2017-08-10 13:59] LABS: BLOOD, URINE NEG (NEG); COMMENT (UR) CULT NOT INDICATED; CULTURE IF INDICATED CULT NOT INDICATED; GLUCOSE,URINE NEG (NEG); KETONE, URINE NEG (NEG); MUCUS URINE FEW /lpf (OCC); NITRITE,URINE NEG (NEG); SQUAMOUS EPITHELIAL CELL URINE 2 /hpf (0-5); URINE COLOR YELLOW (YELLW/STRAW)
[2017-08-10 14:53] VITALS: BP 132/67
== END 2017-08-10 14:53 | disposition home or self-care (01) ==
LOC: NEPE 10:23
DX: M79.1 Myalgia (principal); M53.3 Sacrococcygeal disorders, not elsewhere classified; M25.552 Pain in left hip; R11.0 Nausea; R06.02 Shortness of breath; E11.9 Type 2 diabetes mellitus without complications; I10 Essential (primary) hypertension; G62.9 Polyneuropathy, unspecified
CPT/HCPCS: 74176; 80048; 81001; 85025; 96374; 96375; 96376; 99285; J2270; J2405

== ENCOUNTER 2017-08-13 11:44 | Inpatient (IN) | payer MEDICARE, BC ==
[~2017-08-13] VITALS: Ht 167.6 cm; Wt 118.0 kg
[~2017-08-13 11:44] MED LIST changes: +HYDR-3516 PO
[2017-08-13 11:54] VITALS: BP 104/45; PULSE 102; RESP 16; TEMP 94; O2SAT 99
[2017-08-13] MEDS ORDERED: PANT40TA3 PO (12:23)
--- NOTE | 2017-08-13 13:07 | RADRPT ---
EXAM DATE/TIME: 08/13/2017 12:38 [facility] COMPARISON: No previous studies available for comparison. INDICATIONS : Laceration to plantar surface of the metatarsal phanlangeal joints of right foot after falling backwa rds of the first wrung of ladder. MEDICAL HISTORY : Hypercholesterolemia. Hypertension Gastroesophageal reflux disease. Arthritis. Thyroid disease. C AD. PVD. Gout. Diabetic.Psorasis. SURGICAL HISTORY : Appendectomy. Cardiac cath w/ stents. TURP. Lumbar surgery. ENCOUNTER: Initial ACUITY: 1 day PAIN SCORE: 6/10 LOCATION: Right foot FINDINGS: Diffuse osteopenia. There is a transverse fracture through the proximal metaphysis of the fifth digit proximal phalanx with mild displacement. There is some deformity of the distal head of the fifth med ical tarsal bone which is probably due to degenerative changes. Advanced degenerative changes of the first MTP joint. No radiopaque foreign bodies. CONCLUSION: Fracture of the fifth digit proximal phalanx proximal metaphysis, mildly displaced. Jones Candelario MD on August 13, 2017 at 13:03 Board Certified Radiologist. This report was verified electronically.
[2017-08-13 13:22] VITALS: BP 97/49; PULSE 79; RESP 20; RESP 22; O2SAT 97
--- NOTE | 2017-08-13 13:47 | RADRPT ---
EXAM DATE/TIME: 08/13/2017 13:28 [facility] COMPARISON: No previous studies available for comparison. INDICATIONS : Fell off of step ladder last night RADIATION DOSE: 57.18 CTDIvol (mGy) MEDICAL HISTORY : Hypercholesterolemia. Hypertension. Gastroesophageal reflux disease.Arthritis. Thyroid disease. CAD. PVD. Gout. Diabetic.Psorasis. Anticoagulant therapy. SURGICAL HISTORY : Coronary artery stent. Lumbar surgery. ENCOUNTER: Initial ACUITY: 2 days PAIN SCALE: 6/10 LOCATION: cranial TECHNIQUE: Multiple contiguous axial images were obtained of the head. Using automated exposure control and adj ustment of the mA and/or kV according to patient size, radiation dose was kept as low as reasonably a chievable to obtain optimal diagnostic quality images. DICOM format image data is available electro nically for review and comparison. FINDINGS: There is probable very small parafalcine subdural hematoma in this patient on Plavix. There is no pa renchymal hemorrhage. Ventricle size is appropriate. Posterior fossa is normal. There is no eviden ce for fracture. CONCLUSION: Palpable tiny parafalcine subdural. Correlation suggested. Followup as indicated. Nader Moffett MD FACR on August 13, 2017 at 13:44 Board Certified Radiologist. This report was verified electronically.
--- NOTE | 2017-08-13 14:02 | RADRPT ---
EXAM DATE/TIME: 08/13/2017 13:28 [facility] COMPARISON: No previous studies available for comparison. INDICATIONS : Fell off of step ladder last night. RADIATION DOSE: 26.64 CTDIvol (mGy) MEDICAL HISTORY : Gastroesophageal reflux disease. Hypertension. Hypercholesterolemia.Arthritis. Thyroid disease. CAD. PVD. Gout. Diabetic.Psorasis. Anticoagulant therapy. SURGICAL HISTORY : Coronary artery stent. Lumbar surgery. ENCOUNTER: Initial ACUITY: 2 days PAIN SCALE: 7/10 LOCATION: Left neck TECHNIQUE: Volumetric scanning of the cervical spine was performed. Multiplanar reconstructions in the sagittal, coronal and oblique axial planes were performed. Using automated exposure control and adjustment o f the mA and/or kV according to patient size, radiation dose was kept as low as reasonably achievable to obtain optimal diagnostic quality images. DICOM format image data is available electronically f or review and comparison. FINDINGS: VERTEBRAE: Normal vertebral body height. ALIGNMENT: No evidence of subluxation. C1-C2: Extensive degenerative changes are noted at C1-C2 without foramen magnum stenosis. Definite fracture is not appreciated. Control flexion-extension films may be of benefit. C2-C3: The bony spinal canal is normal in size. No evidence of disc bulge or herniation. The neural forami na are bilaterally patent. C3-C4: Extensive facet disease is present the bilateral neural foramina encroachment. There is no spinal st enosis. C4-C5: Uncinate ridging is present mild/moderate spinal stenosis and mild right-sided neural foramina encroa chment. C5-C6: Marked uncinate ridging is present with moderate left-sided cervical spinal stenosis and neural natalie sandhya encroachment. C6-C7: Moderate uncinate ridging is present. There is mild to moderate spinal stenosis present. Mild bilat eral neuroforaminal stenosis. C7-T1: Mild facet disease is evident worse on the left. There is no spinal stenosis. CONCLUSION: 1. Significant spinal stenosis C5-C6 2. Moderate degenerative changes throughout the cervical spine including C1-C2 3. No fracture. Nader Moffett MD FACR on August 13, 2017 at 13:57 Board Certified Radiologist. This report was verified electronically.
--- NOTE | 2017-08-13 14:17 | PD ---
HPI Chief Complaint: Injury Time Seen by Provider: 12:24 Travel History International Travel<30 days: No Contact w/Intl Traveler<30days: No Traveled to known affect area: No History of Present Illness HPI 77-year-old male here for evaluation of right foot pain after he fell backwards standing one step up on a ladder. He fell backwards onto a concrete floor. Patient reports he struck his head on the ground he had no loss of consciousness. Patient is on Plavix. He reports pain only in the right foot. He denies any other injury. He reports he has back pain which is his usual chronic back pain and there has been no change or increase in the severity of the pain since the fall. He denies headache, nausea, visual changes. PFSH Past Medical History Narrative Medical Significant for CAD, hypertension, arthritis Arthritis: Yes Autoimmune Disease: Yes (PSORIASIS) Cancer: No Cardiac Catheterization: Yes Cardiovascular Problems: Yes High Cholesterol: Yes Diabetes: Yes Patient Takes Glucophage: No Diminished Hearing: No GERD: Yes Gout: Yes Genitourinary: Yes (PROSTATE) Hypertension: Yes Neurologic: No Psychiatric: No Reproductive: No Respiratory: No Thyroid Disease: Yes Tetanus Vaccination: < 5 Years Influenza Vaccination: Yes Past Surgical History Appendectomy: Yes Cardiac Surgery: Yes (3 STENTS) Genitourinary Surgery: Yes (TURP) Social History Alcohol Use: Yes (social) Tobacco Use: No Substance Use: No Allergies-Medications (Allergen,Severity, Reaction): Coded Allergies: No Known Allergies (Unverified Adverse Reaction, Unknown, 08/13/17) Reported Meds & Prescriptions Reported Meds & Active Scripts Active Simethicone 180 Mg Cap 180 Mg PO QID PRN Aspir-81 (Aspirin) 81 Mg Tabdr 81 Mg PO DAILY 30 Days Reported Pantoprazole (Pantoprazole Sodium) 40 Mg Tab 40 Mg PO DAILY Nitroglycerin SL (Nitroglycerin) 0.4 Mg Subl 0.4 Mg SL DIRECTED PRN ONE TABLET UNDER THE TONGUE NEEDED FOR CHEST PAIN, MAY REPEAT EVERY FIVE MINUTES FOR A TOTAL OF 3 DOSES OR CALL 911 IF NO RELIEF Potassium Chloride ER (Potassium Chloride) 10 Meq Tab 10 Meq PO DAILY Tamsulosin (Tamsulosin HCl) 0.4 Mg Cap 0.4 Mg PO HS Allopurinol 100 Mg Tab 100 Mg PO DAILY Furosemide 20 Mg Tab 20 Mg PO DAILY Finasteride 5 Mg Tab 5 Mg PO DAILY Do not crush. Clopidogrel (Clopidogrel Bisulfate) 75 Mg Tab 75 Mg PO DAILY Gabapentin 300 Mg Cap 300 Mg PO BID Atorvastatin (Atorvastatin Calcium) 40 Mg Tab 40 Mg PO HS Metformin (Metformin HCl) 500 Mg Tab 500 Mg PO DAILY With a meal Lisinopril 20 Mg Tab 20 Mg PO DAILY Review of Systems Except as stated in HPI: all other systems reviewed are Neg General / Constitutional: No: Fever Eyes: No: Visual changes HENT: No: Headaches Physical Exam Narrative GENERAL: Alert elderly male in no distress. SKIN: Warm and dry. 3 lacerations to the third, fourth, fifth digit plantar aspects. No visible tendon, ligament, bone. No foreign body. Patient is able to fully flex and extend the toes. He has tenderness over the dorsal aspect of the right foot. HEAD: Atraumatic. Normocephalic. EYES: Pupils equal and round. No scleral icterus. No injection or drainage. ENT: No nasal bleeding or discharge. Mucous membranes pink and moist. NECK: Trachea midline. No JVD. CARDIOVASCULAR: Regular rate and rhythm. RESPIRATORY: No accessory muscle use. Clear to auscultation. Breath sounds equal bilaterally. GASTROINTESTINAL: Abdomen soft, non-tender, nondistended. Hepatic and splenic margins not palpable. MUSCULOSKELETAL: Extremities without clubbing, cyanosis. No obvious deformities. Attention to the right foot: 3 lacerations all measuring < 1cm to the third, fourth, fifth digit plantar aspects. No visible tendon, ligament, bone. No foreign body. No active bleeding. Patient is able to fully flex and extend the toes. Brisk cap refill. He has tenderness over the dorsal aspect of the right foot. NEUROLOGICAL: Awake and alert. No obvious cranial nerve deficits. Motor grossly within normal limits. Five out of 5 muscle strength in the arms and legs. Normal speech. PSYCHIATRIC: Appropriate mood and affect; insight and judgment normal. Data Data Last Documented VS Vital Signs Date Time Temp Pulse Resp B/P (MAP) Pulse Ox O2 Delivery O2 Flow Rate FiO2 08/13/17 13:22 79 22 97/49 (65) 97 Room Air 08/13/17 11:[address] Brain W/O Iv Contrast(Rout) (08/13/17 ) Ct Cerv Spine W/O Contrast (08/13/17 ) Foot, Complete ([id number]) (08/13/17 ) Basic Metabolic Panel (Bmp) (08/13/17 14:27) Complete Blood Count With Diff (08/13/17 14:27) Prothrombin Time / Inr (Pt) (08/13/17 14:27) Act Partial Throm Time (Ptt) (08/13/17 14:27) Cefazolin 2 Gm Premix (Ancef 2 Gm Premix (08/13/17 14:30) Xmhl-Fap-Ebrlxh (Booster) Inj (Boostrix (08/13/17 14:30) Iv Access Insert/Monitor (08/13/17 14:27) Admit Order (Ed Use Only) (08/13/17 14:38) MDM Medical Decision Making Medical Screen Exam Complete: Yes Emergency Medical Condition: Yes Interpretation(s) CT brain: Probable tiny parafalcine subdural X-ray right foot: Fifth digit proximal phalanx fracture Differential Diagnosis Toe fracture, ICH, laceration Narrative Course 77-year-old male here for evaluation of right foot pain and lacerations to the third, fourth, fifth toe after falling from 1 step on a ladder yesterday. He had a head injury with no loss of consciousness. He is on Plavix. He has a normal neurologic exam. CT scan showed a probable tiny parafalcine subdural hematoma. X-ray showed proximal phalanx fracture of the fifth toe. Patient was given IV Ancef for open fracture, wound was copiously irrigated and sterile dressing applied, postop shoe applied. He will be admitted to the hospital for observation subdural hematoma and repeat scanning. Case was discussed with Dr. Cisneros who agrees to admit patient and consult podiatry regarding toe fracture with a nearby laceration. Physician Communication Physician Communication Case was discussed Dr. Cisneros who agrees to admit patient to their service. Diagnosis Primary Impression: Subdural hematoma Additional Impression: Phalanx fracture, foot Qualified Codes: S92.514B - Nondisplaced fracture of proximal phalanx of right lesser toe(s), initial encounter for open fracture Admitting Information Admitting Physician Requests: Admit Namita Guardado Aug 13, 2017 14:17
[2017-08-13] MEDS ORDERED: ceFAZolin 2 GM PREMIX 50 ML IV ONE (14:30)
[2017-08-13] MEDS ORDERED: DIPHTH/TETANUS/ACEL PERTUSSIS (BOOSTER) 0.5 ML VIAL/PFS IM ONE (14:30)
--- NOTE | 2017-08-13 14:36 | PD ---
Physical Exam Narrative I, Dr. Stevenson, have reviewed the advance practice practitioner's documentation and am in agreement, met with the patient face to face, made the diagnosis, and the medical decision making was done by me. *My assessment and Findings: ICH vs. fracture vs. contusion 77yo M with right foot pain after fall off a step on ladder. Pt mainly complaining of pain in foot with small lacerations in plantar surface of 3-5 digit. +Ecchymoses. CT cspine showed no fracture. Xray of right foot showed fracture of fifth digit proximal phalanx metaphysis. CT brain showed probable tiny parafalcine subdural. Pt said he has some new blurry vision. No new weakness or numbness. Labs reviewed, no leukocytosis. BUN/creatinine is elevated at 42/2.60 which is increased from prior. Pt to be admitted for probable subdural hematoma, acute on chronic kidney failure and right fifth proximal phalanx fracture. Data Data Last Documented VS Vital Signs Date Time Temp Pulse Resp B/P (MAP) Pulse Ox O2 Delivery O2 Flow Rate FiO2 08/13/17 13:22 79 22 97/49 (65) 97 Room Air 08/13/17 11:[address] Brain W/O Iv Contrast(Rout) (08/13/17 ) Ct Cerv Spine W/O Contrast (08/13/17 ) Foot, Complete ([id number]) (08/13/17 ) Basic Metabolic Panel (Bmp) (08/13/17 14:27) Complete Blood Count With Diff (08/13/17 14:27) Prothrombin Time / Inr (Pt) (08/13/17 14:27) Act Partial Throm Time (Ptt) (08/13/17 14:27) Cefazolin 2 Gm Premix (Ancef 2 Gm Premix (08/13/17 14:30) Ycil-Sre-Drrbjj (Booster) Inj (Boostrix (08/13/17 14:30) Iv Access Insert/Monitor (08/13/17 14:27) Admit Order (Ed Use Only) (08/13/17 14:38) MDM Supervised Visit with SERENA: Yes Critical Care Narrative Aggregate critical care time was 35 minutes. Time to perform other separately billable procedures was not included in the critical care time. My time did not include minutes spent treating any other patients simultaneously or on activities that did not directly contribute to the patient's treatment. The services I provided to this patient were to treat and/or prevent clinically significant deterioration that could result in: cardiovascular collapse or . I provided critical care services requiring my management, as noted below: Chart data review, documentation time, medication orders and management, vital sign assessments/reviewing monitor data, ordering and reviewing lab tests, ordering and interpreting/reviewing x-rays and diagnostic studies, care of the patient and discussion of the patient with the admitting physicians. Diagnosis Primary Impression: Subdural hematoma Additional Impression: Phalanx fracture, foot Qualified Codes: S92.514B - Nondisplaced fracture of proximal phalanx of right lesser toe(s), initial encounter for open fracture Admitting Information Admitting Physician Requests: Shirley Marquez DO Aug 13, 2017 14:36
[2017-08-13] MEDS ORDERED: MAGNESIUM HYDROXIDE SUSP 30 ML CUP PO PRN (14:45)
[2017-08-13] MEDS ORDERED: SODIUM CHLORIDE 0.9% FLUSH 10 ML FLUSH IV FLUSH PRN (14:45)
[2017-08-13] MEDS ORDERED: SENNOSIDES 8.6 MG TAB PO PRN (14:45)
[2017-08-13] MEDS ORDERED: ACETAMINOPHEN 325 MG TAB PO PRN (14:45)
[2017-08-13] MEDS ORDERED: LACTULOSE SYRUP 20 GM/30 ML CUP PO PRN (14:45)
[2017-08-13] MEDS ORDERED: ONDANSETRON HCL 4 MG/2 ML VIAL IVP PRN (14:45)
[2017-08-13] MEDS ORDERED: NALOXONE HCL 0.4 MG/ML AMP IV PUSH PRN (14:45)
[2017-08-13] MEDS ORDERED: BISACODYL 10 MG SUPP RECTAL PRN (14:45)
[2017-08-13 14:57] LABS: BASOPHIL % 0.5 % (0.0-2.0); EOSINOPHIL # 0.4 TH/MM3 (0-0.4); EOSINOPHIL % 4.9 % (0.0-4.0); HEMATOCRIT 38.8 % (39.0-51.0); HEMO FLAGS DIFF FINAL; LYMPH % 17.3 % (9.0-44.0); LYMPHOCYTE # 1.5 TH/MM3 (1.0-4.8); MEAN CELL VOLUME 91.7 FL (80.0-100.0); MEAN CORPUSCULAR HEMOGLOBIN 30.5 PG (27.0-34.0); MEAN CORPUSCULAR HGB CONC 33.3 % (32.0-36.0); MONO % 9.7 % (0.0-8.0); NEUT % 67.6 % (16.0-70.0); PLATELET COUNT 168 TH/MM3 (150-450); RED BLOOD COUNT 4.23 MIL/MM3 (4.50-5.90); RED CELL DISTRIBUTION WIDTH 13.2 % (11.6-17.2); WHITE BLOOD COUNT 8.7 TH/MM3 (4.0-11.0)
[2017-08-13 15:08] LABS: BICARBONATE 25.3 MEQ/L (21.0-32.0)
[2017-08-13 15:09] LABS: APTT (PATIENT) 26.3 SEC (24.3-30.1); PROTHROMBIN TIME - PATIENT 10.4 SEC (9.8-11.6)
[2017-08-13 15:17] VITALS: O2SAT 97
[2017-08-13 16:00] VITALS: BP 154/70; PULSE 91; RESP 20; TEMP 96.7; O2SAT 98
--- NOTE | 2017-08-13 17:22 | HHI.HP ---
[facility] Jackson Alberts, DO Admission Diagnosis subdural hematoma, fifth proximal phalanx fracture, laceration Diagnoses: (1) Abnormal finding on CT scan Diagnosis: Principal (2) Phalanx fracture, foot Diagnosis: Principal (3) Toe laceration Diagnosis: Principal Chief Complaint: Fall at home with foot pain Travel History International Travel<30 Days: No Contact w/Intl Traveler <30 Da: No Traveled to Known Affected Are: No History of Present Illness Written by Jass Jacob, acting as scribe for Dr. Cisneros on 08/13/17 at 17: 00. 77 year-old male with known history of hypertension, coronary artery disease, hyperlipidemia, hypothyroidism, diabetes, benign prostatic hypertrophy , gastroesophageal reflux, gouty arthritis, lumbar spinal stenosis, peripheral neuropathy who presented to the hospital because of right foot pain. Patient states that him and his are making homemade meatballs yesterday and he could not find the service counselor in order to form the meatballs. So he went to get him off a top shelf with a stepladder. Patient states that he fell backwards off a step ladder and hitting his foot on the ladder itself causing pain and lacerations underneath his toes. The patient denies any loss of consciousness, head injury, worsening neck or back pain. The patient's indicated that she elevated his right foot yesterday and clean the lacerations. But because the pain was worsening he came to the emergency department for evaluation. Patient had workup done which does indicate fractures of the right foot and fifth digit proximal phalanx, proximal metaphysis mildly displaced. CT scan was done of the brain which did indicate a probable tiny parafalcine subdural hematoma. Because of that reason it was recommended by the ER physician that the patient be admitted for further evaluation and management. Patient does have history coronary disease and continues on Plavix, however, he has been off of it for the last 3 days. Her live study manager Dr. Salinas. Patient is having outpatient follow-up for his spinal stenosis at this time by his neurologist, Dr. Jung Review of Systems Musculoskeletal: COMPLAINS OF: Joint pain (right foot pain) Except as stated in HPI: all other systems reviewed are Neg Past Family Social History Past Medical History Hypertension Hyperlipidemia Coronary artery disease Hypothyroidism Diabetes Gouty arthritis Gastroesophageal reflux Benign prostatic hypertrophy Psoriasis Peripheral neuropathy Past Surgical History Appendectomy Cardiac catheterization with 3 coronary stents Lumbar spine surgery for spinal stenosis TURP Reported Medications Reported Meds & Active Scripts Active Simethicone 180 Mg Cap 180 Mg PO QID PRN Aspir-81 (Aspirin) 81 Mg Tabdr 81 Mg PO DAILY 30 Days Reported Pantoprazole (Pantoprazole Sodium) 40 Mg Tab 40 Mg PO DAILY Nitroglycerin SL (Nitroglycerin) 0.4 Mg Subl 0.4 Mg SL DIRECTED PRN ONE TABLET UNDER THE TONGUE NEEDED FOR CHEST PAIN, MAY REPEAT EVERY FIVE MINUTES FOR A TOTAL OF 3 DOSES OR CALL 911 IF NO RELIEF Potassium Chloride ER (Potassium Chloride) 10 Meq Tab 10 Meq PO DAILY Tamsulosin (Tamsulosin HCl) 0.4 Mg Cap 0.4 Mg PO HS Allopurinol 100 Mg Tab 100 Mg PO DAILY Furosemide 20 Mg Tab 20 Mg PO DAILY Finasteride 5 Mg Tab 5 Mg PO DAILY Do not crush. Clopidogrel (Clopidogrel Bisulfate) 75 Mg Tab 75 Mg PO DAILY Gabapentin 300 Mg Cap 300 Mg PO BID Atorvastatin (Atorvastatin Calcium) 40 Mg Tab 40 Mg PO HS Metformin (Metformin HCl) 500 Mg Tab 500 Mg PO DAILY With a meal Lisinopril 20 Mg Tab 20 Mg PO DAILY Allergies: Coded Allergies: No Known Allergies (Unverified Adverse Reaction, Unknown, 08/13/17) Family History Reviewed is significant for brother with heart disease, another brother with pulmonary emboli. Mother with stroke Social History Patient denies any tobacco, illicit drug use. Does use alcohol occasionally Physical Exam Vital Signs Vital Signs Date Time Temp Pulse Resp B/P (MAP) Pulse Ox O2 Delivery O2 Flow Rate FiO2 08/13/17 15:50 08/13/17 15:17 97 21 08/13/17 13:22 79 22 97/49 (65) 97 Room Air 08/13/17 11:54 94.0 102 16 104/45 (64) 99 Physical Exam GENERAL: Well-developed, well-nourished, in no acute distress. alert and orientated HEENT: Head is normocephalic without any lesions or masses noted. Facial features are symmetric. Eyes: Pupils equal round reactive to light. Extraocular muscles are intact. Conjunctivae were clear. Oropharyngeal: Pharynx without any erythema edema. Tongue is midline without deviation. Buccal mucosa is moist without any masses or lesions NECK: Supple without any masses. Trachea midline no deviation. No JVD, no bruits are appreciated CARDIAC: Regular rhythm, regular rate. S1/S2 are heard. No murmurs gallops or rubs. LUNGS: Clear to auscultation bilaterally. No wheeze, rhonchi or rales. No use of accessory muscles on inspiration or expiration. ABDOMEN: Soft, nontender. Nondistended. Bowel sounds heard in all 4 quadrants. No organomegaly or masses. Negative rebound, negative guarding EXTREMITIES: No edema, pulses are equal bilaterally. No cyanosis or clubbing NEUROLOGY: Mood and affect appear appropriate. Cranial nerves II through XII grossly intact. Muscle strength 5/5 in upper and lower extremities bilaterally. Deep tendon reflexes are 2+ in upper and lower extremities bilaterally. RIGHT FOOT: Patient does have ecchymosis noted over the third, fourth and fifth dorsal surface of the foot. There is lacerations noted under the DIP joints of the third and fourth digits. Laboratory Laboratory Tests Test 08/13/17 14:50 White Blood Count 8.7 Red Blood Count 4.23 Hemoglobin 12.9 Hematocrit 38.8 Mean Corpuscular Volume 91.7 Mean Corpuscular Hemoglobin 30.5 Mean Corpuscular Hemoglobin Concent 33.3 Red Cell Distribution Width 13.2 Platelet Count 168 Mean Platelet Volume 7.9 Neutrophils (%) (Auto) 67.6 Lymphocytes (%) (Auto) 17.3 Monocytes (%) (Auto) 9.7 Eosinophils (%) (Auto) 4.9 Basophils (%) (Auto) 0.5 Neutrophils # (Auto) 6.0 Lymphocytes # (Auto) 1.5 Monocytes # (Auto) 0.8 Eosinophils # (Auto) 0.4 Basophils # (Auto) 0.0 CBC Comment DIFF FINAL Differential Comment Prothrombin Time 10.4 Prothromb Time International Ratio 1.0 Activated Partial Thromboplast Time 26.3 Blood Urea Nitrogen 42 Creatinine 2.60 Random Glucose 101 Calcium Level 8.8 Sodium Level 137 Potassium Level 5.0 Chloride Level 104 Carbon Dioxide Level 25.3 Anion Gap 8 Estimat Glomerular Filtration Rate 24 Result Diagram: 08/13/17 1450 08/13/17 1450 Imaging Last Impressions Head CT 08/13/17 0000 Signed Impressions: Service Date/Time: Sunday, August 13, 2017 13:28 - CONCLUSION: Palpable tiny parafalcine subdural. Correlation suggested. Followup as indicated. Nader Moffett MD FACR Foot X-Ray 08/13/17 0000 Signed Impressions: Service Date/Time: Sunday, August 13, 2017 12:38 - CONCLUSION: Fracture of the fifth digit proximal phalanx proximal metaphysis, mildly displaced. Jones Candelario MD Cervical Spine CT 08/13/17 0000 Signed Impressions: Service Date/Time: Sunday, August 13, 2017 13:28 - CONCLUSION: 1. Significant spinal stenosis C5-C6 2. Moderate degenerative changes throughout the cervical spine including C1-C2 3. No fracture. Nader Moffett MD FACR Caprini VTE Risk Assessment Caprini VTE Risk Assessment: Mod/High Risk (score >= 2) Caprini Risk Assessment Model Point Value = 1 Point Value = 2 Point Value = 3 Point Value = 5 Age 41-60 Minor surgery BMI > 25 kg/m2 Swollen legs Varicose veins or History of unexplained or recurrent spontaneous Oral contraceptives or hormone replacement Sepsis (< 1 month) Serious lung disease, including pneumonia (< 1 month) Abnormal pulmonary function Acute myocardial infarction Congestive heart failure (< 1 month) History of inflammatory bowel disease Medical patient at bed rest Age 61-74 Arthroscopic surgery Major open surgery (> 45 min) Laparoscopic surgery (> 45 min) Malignancy Confined to bed (> 72 hours) Immobilizing plaster cast Central venous access Age >= 75 History of VTE Family history of VTE Factor V Leiden Prothrombin [id number] Lupus anticoagulant Anticardiolipin antibodies Elevated serum homocysteine Heparin-induced thrombocytopenia Other congenital or acquired thrombophilia Stroke (< 1 month) Elective arthroplasty Hip, pelvis, or leg fracture Acute spinal cord injury (< 1 month) Prophylaxis Regimen Total Risk Factor Score Risk Level Prophylaxis Regimen 0-1 Low Early ambulation 2 Moderate Order ONE of the following: *Sequential Compression Device (SCD) *Heparin 5000 units SQ BID 3-4 Higher Order ONE of the following medications: *Heparin 5000 units SQ TID *Enoxaparin/Lovenox 40 mg SQ daily (WT < 150 kg, CrCl > 30 mL/min) *Enoxaparin/Lovenox 30 mg SQ daily (WT < 150 kg, CrCl > 10-29 mL/min) *Enoxaparin/Lovenox 30 mg SQ BID (WT < 150 kg, CrCl > 30 mL/min) AND/OR *Sequential Compression Device (SCD) 5 or more Highest Order ONE of the following medications: *Heparin 5000 units SQ TID (Preferred with Epidurals) *Enoxaparin/Lovenox 40 mg SQ daily (WT < 150 kg, CrCl > 30 mL/min) *Enoxaparin/Lovenox 30 mg SQ daily (WT < 150 kg, CrCl > 10-29 mL/min) *Enoxaparin/Lovenox 30 mg SQ BID (WT < 150 kg, CrCl > 30 mL/min) AND *Sequential Compression Device (SCD) Assessment and Plan Assessment and Plan Abnormal CT finding with probable tiny parafalcine subdural hematoma Patient not indicate any acute head injury, loss of consciousness or neurological symptoms Case was discussed with Cheryl, physician embalmer assistant with Dr. Campos's, who indicated that the patient can remain in [place] for observation Continue neuro checks Repeat CT scan tomorrow for evaluation Maintain systolic blood pressure less than 140 Right foot fifth phalanx fracture with lacerations consult podiatry for recommendations Acute renal failure superimposed on chronic kidney disease stage III We'll start cautious hydration We'll hold Lasix, PANKAJ inhibitor, potassium replacement Monitor renal function, avoid nephrotoxins Hypertension, hyperlipidemia, coronary artery disease Continue home medications Continue to Hold aspirin and Plavix Diabetes Accu-Cheks with sliding scale insulin Hypothyroidism Continue replacement therapy DVT prevention Sequential compression devices This note was transcribed by cordell Jacob. I, Dr. Kurtis Cisneros personally performed the history, physical exam, and medical decision making; and confirmed the accuracy of the information in the transcribed note. Authenticated by Dr. Kurtis Cisneros on 08/13/17 at 1700. Problem Qualifiers (1) Phalanx fracture, foot: Qualified Codes: S92.514B - Nondisplaced fracture of proximal phalanx of right lesser toe(s), initial encounter for open fracture Jass Jacob Aug 13, 2017 17:22 Scottie Cisneros DO Aug 13, 2017 23:33
[2017-08-13] MEDS ORDERED: DEXTROSE 50% IN WATER 50 ML VIAL(D50) IV PUSH PRN (17:30)
[2017-08-13] MEDS ORDERED: GLUCAGON 1 MG/ML VIAL OTHER PRN (17:30)
[2017-08-13] MEDS: SODIUM CHLOR 0.9% 1000 ML INJ 1,000 ML IV SCH (18:10)
[2017-08-13 20:00] VITALS: BP 97/54; PULSE 84; RESP 20; TEMP 96.9; O2SAT 94
[2017-08-13] MEDS: SODIUM CHLORIDE 0.9% FLUSH 10 ML FLUSH IV FLUSH SCH (20:28)
[2017-08-13] MEDS: ATORVASTATIN 40 MG TAB PO SCH (20:28)
[2017-08-13] MEDS: INSULIN ASPART SUPPLEMENTAL SCALE SQ SCH (20:28)
[2017-08-13] MEDS: TAMSULOSIN HCL 0.4 MG CAP PO SCH (20:28)
[2017-08-13 20:43] VITALS: O2SAT 95
[2017-08-13] MEDS ORDERED: traMADol HCL 50 MG TAB PO ONE (23:00)
[2017-08-14] VITALS (7 sets, daily range): BP systolic 86–136; BP diastolic 53–64; PULSE 71–87; RESP 14–20; TEMP 96.1–98.4; O2SAT 92–97
[2017-08-14 06:42] LABS: CHLORIDE 104 MEQ/L (98-107); POTASSIUM 4.7 MEQ/L (3.5-5.1); SODIUM (NA) 137 MEQ/L (136-145)
[2017-08-14 06:43] LABS: PROTHROMBIN TIME - PATIENT 10.5 SEC (9.8-11.6)
[2017-08-14 06:47] LABS: ANION GAP 8 MEQ/L (5-15); BICARBONATE 24.6 MEQ/L (21.0-32.0); BLOOD UREA NITROGEN 41 MG/DL (7-18)
[2017-08-14 06:50] LABS: ALT (GPT) 26 U/L (12-78); AST (GOT) 48 U/L (15-37); GLOMERULAR FILTRATION RATE 34 ML/MIN (>89)
[2017-08-14 06:52] LABS: TOTAL BILIRUBIN ADULT 0.6 MG/DL (0.2-1.0)
[2017-08-14 06:53] LABS: ALKALINE PHOSPHATASE 61 U/L (45-117)
--- NOTE | 2017-08-14 06:53 | RADRPT ---
EXAM DATE/TIME: 08/14/2017 06:28 [place] COMPARISON: CT BRAIN W/O CONTRAST, August 13, 2017, 13:28. INDICATIONS : Headache. Evaluate for possible subdural hematoma. Status post trauma after fall from ladder. RADIATION DOSE: 58.33 CTDIvol (mGy) MEDICAL HISTORY : Hypertension. Diabetes mellitus type 2. Peripheral vascular disease. SURGICAL HISTORY : Coronary artery stent. ENCOUNTER: Subsequent ACUITY: 3 days PAIN SCALE: 5/10 LOCATION: cranial TECHNIQUE: Multiple contiguous axial images were obtained of the head. Using automated exposure control and adj ustment of the mA and/or kV according to patient size, radiation dose was kept as low as reasonably a chievable to obtain optimal diagnostic quality images. DICOM format image data is available electro nically for review and comparison. FINDINGS: CEREBRUM: The ventricles are normal for age. No evidence of midline shift, mass lesion, hemorrhage or acute in farction. No extra-axial fluid collections are seen. POSTERIOR FOSSA: The cerebellum and brainstem are intact. The 4th ventricle is midline. The cerebellopontine angle i s unremarkable. EXTRACRANIAL: The visualized portion of the orbits is intact. SKULL: The calvaria is intact. No evidence of skull fracture. CONCLUSION: Negative exam There is no parafalcine hematoma on the current study. Adalberto Loaiza MD on August 14, 2017 at 6:46 Board Certified Radiologist. This report was verified electronically.
[2017-08-14] MEDS: INSULIN ASPART SUPPLEMENTAL SCALE SQ SCH ×4 (08:00→20:29)
[2017-08-14] MEDS: SODIUM CHLORIDE 0.9% FLUSH 10 ML FLUSH IV FLUSH SCH ×2 (09:00→20:29)
[2017-08-14] MEDS: FINASTERIDE 5 MG TAB PO SCH (10:00)
[2017-08-14] MEDS: PANTOPRAZOLE SOD 40 MG DELAYED RELEASE TAB PO SCH (10:00)
[2017-08-14] MEDS: SODIUM CHLOR 0.9% 1000 ML INJ 1,000 ML IV SCH (17:19)
--- NOTE | 2017-08-14 17:59 | HHI.FF ---
Face to Face Verification Diagnosis: (1) Toe laceration (2) Phalanx fracture, foot (3) Subdural hematoma Physical Therapy Order: Improve ambulation (- WBAT in boot/shoe RLE), Strength and gait training (WBAT in boot/shoe) Home Health Nursing Order: Wound care and dressing changes (M/W/F xeroform to wounds, betadine to mascerated areas, covered with 4x4sw and light fly) I have seen patient Brianda Dodge on 08/14/17. My clinical findings support the need for the requested home health care services because: Limited ability to care for self (weakness to the RLE and back) High risk of falls (recent fall) I certify that my clinical findings support that this patient is homebound because: Unsteady gait/balance (recent fall) Unsafe to leave home unassisted (weakness and recent fall) Mignon Agarwal DPM Aug 14, 2017 17:59
--- NOTE | 2017-08-14 18:14 | HHI.PR ---
Subjective Remarks F/u on toe fracture. Patient states that his pain is essentially when he is only weightbearing. Says he can't put any weight on the foot. Denies any headaches. Objective Vital Signs Date Time Temp Pulse Resp B/P (MAP) Pulse Ox O2 Delivery O2 Flow Rate FiO2 08/14/17 16:00 98.4 83 16 120/57 (78) 97 08/14/17 12:00 98.4 73 14 136/64 (88) 96 08/14/17 08:00 96.8 71 16 108/53 (71) 95 08/14/17 04:00 96.1 80 20 95/62 (73) 97 08/14/17 00:00 98.1 82 20 86/54 (65) 95 08/13/17 20:43 95 21 08/13/17 20:00 96.9 84 20 97/54 (68) 94 I/O 08/13/17 08/13/17 08/13/17 08/14/17 08/14/17 08/14/17 06:59 14:59 22:59 06:59 14:59 22:59 Intake Total 290 ml 748 ml 240 ml 222 ml Output Total 300 ml Balance 290 ml 448 ml 240 ml 222 ml Intake Oral 240 ml 260 ml 240 ml 222 ml IV Total 50 ml 488 ml Output Urine Total 300 ml # Voids 1 1 2 # Bowel Movements 1 0 1 Result Diagram: 08/13/17 1450 08/14/17 0609 Objective Remarks Right foot in walking shoe, has a healing laceration on ventral aspect of toes, has TTP over right foot dorsum No head ecchymosis nor laceration noted A/P Assessment and Plan No hematoma seen on repeat CT Right foot fifth phalanx fracture with lacerations D/w podiatry - no surgery needed, recommending PT eval with walking shoe. And per pt's request will get HH ordered. Acute renal failure superimposed on chronic kidney disease stage III Lasix, PANKAJ inhibitor, potassium replacement Hypertension, hyperlipidemia, coronary artery disease Continue home medications resume aspirin and plavix Diabetes Accu-Cheks with sliding scale insulin Hypothyroidism Continue replacement therapy DVT prevention Sequential compression devices Herberth Agudelo MD Aug 14, 2017 18:14
--- NOTE | 2017-08-14 20:06 | MB ---
cc: MIGNON CERVANTES DATE OF CONSULTATION 08/14/2017 CHIEF COMPLAINT Right foot injury. HISTORY OF PRESENT ILLNESS Mr. Dodge was admitted after a fall on August 13. He was on a step ladder and fell backwards. He hyperextended the digits, fracture in the fifth toe and tearing the skin on the bottom aspect of the digit. The patient states that he is having difficulty ambulating but all of his pain is in the known injured area of his foot. He also has a possible subdural hematoma noted on the CT scan. PAST MEDICAL HISTORY Includes: 1. Hypertension. 2. Coronary artery disease. 3. Hyperlipidemia. 4. Hypothyroidism. 5. Diabetes. 6. Benign prostatic hypertrophy. 7. Gastroesophageal reflux disease. 8. Gouty arthritis. 9. Lumbar spinal stenosis. 10. Peripheral neuropathy. FAMILY HISTORY Noncontributory. PAST SURGICAL HISTORY 1. Appendectomy. 2. Cardiac catheterization. 3. Lumbar spine surgery. 4. Transurethral resection of prostate. MEDICATIONS Please see list. ALLERGIES NO KNOWN DRUG ALLERGIES. SOCIAL HISTORY The patient denies alcohol or drug abuse. He does drink alcohol socially. He lives at home with his . Vital signs, Temperature is 98.4, pulse 83, respiratory rate 16, blood pressure 120/57. Pulse ox 97% O2 on room air. LABORATORY DATA White count 3.7, hemoglobin 12.9, hematocrit 38.8, platelets 116. Sodium 137, potassium 4.7, chloride 104, carbon dioxide 24.6, BUN 41. INR 1.0. IMAGING X-ray shows a fracture, a transverse fracture of the fifth proximal phalanx base with minimal displacement. No gas in the soft tissue. No other acute abnormalities. PHYSICAL EXAMINATION He has palpable but diminished pulses both PT and DP. Cap fill time less than 3 seconds. Gross sensation is diminished. Left foot is unremarkable. The right foot has small laceration at the metatarsal-phalangeal joint plantarly at the base of the toes both of the third and fourth digits both of which are granular and clean. There is no depth, no exposed tendon. No signs of infection. There is maceration interdigitally to all of the web spaces. There is some ecchymosis around the fifth digit and some tenderness with touch. The patient has no metatarsal pain or mid foot pain. He denies any pain or abnormalities anywhere else. ASSESSMENT/PLAN 1. Right foot fifth digit fracture. 2. Right foot skin tears x2. - patient okay to discharge from podiatry standpoint once cleared by physical therapy and home health has been arranged. Face to face has been entered as well as wound care instructions. If the patient is unable to weightbear in the surgical shoe he may benefit from a Cam boot and a walker during his physical therapy training. I spoke to the patient and his in detail regarding the plan of care and they are agreeable to such. They will follow up in the office 3-5 days after discharge. Mignon PRIETO/KK /6:00 PM /7:41 PM MTDD
[2017-08-14] MEDS: ATORVASTATIN 40 MG TAB PO SCH (20:29)
[2017-08-14] MEDS: TAMSULOSIN HCL 0.4 MG CAP PO SCH (20:29)
[2017-08-14] MEDS: traMADol HCL 50 MG TAB PO PRN (20:34)
[2017-08-15] VITALS: BP 128/65; PULSE 79; RESP 17; TEMP 97.7; O2SAT 93
[2017-08-15 04:00] VITALS: BP 122/70; PULSE 82; RESP 18; TEMP 97.5; O2SAT 94
[2017-08-15] MEDS: INSULIN ASPART SUPPLEMENTAL SCALE SQ SCH ×2 (08:00→12:00)
[2017-08-15 08:47] VITALS: BP 128/73; PULSE 76; RESP 18; TEMP 97.9; O2SAT 96
[2017-08-15] MEDS: traMADol HCL 50 MG TAB PO PRN (08:54)
[2017-08-15] MEDS: PANTOPRAZOLE SOD 40 MG DELAYED RELEASE TAB PO SCH (08:54)
[2017-08-15] MEDS: FINASTERIDE 5 MG TAB PO SCH (08:55)
[2017-08-15 12:15] VITALS: BP 155/64; PULSE 82; RESP 16; TEMP 98.2; O2SAT 96
[2017-08-15] MEDS ORDERED: TRAM50 PO (12:32)
--- NOTE | 2017-08-15 12:32 | HHI.DCPOC ---
Discharge Care Plan Diagnosis: (1) Subdural hematoma (2) Phalanx fracture, foot Goals to Promote Your Health * To prevent worsening of your condition and complications * To maintain your health at the optimal level Directions to Meet Your Goals Take your medications as prescribed Follow your dietary instruction Follow activity as directed Keep your appointments as scheduled Take your immunizations and boosters as scheduled If your symptoms worsen call your PCP, if no PCP go to Urgent Care Center or Emergency Room Smoking is Dangerous to Your Health. Avoid second hand smoke Call the 24-hour hour crisis hotline for domestic abuse at Jass Jacob Aug 15, 2017 12:32
--- NOTE | 2017-08-15 12:36 | HHI.PR ---
Subjective Remarks F/u on right 5th digit fracture. No deterioration since last night. No reports of any severe headache nausea vomiting. Tolerating by mouth intake well. Patient participated with therapy while after receiving cam boot. Objective Vital Signs Date Time Temp Pulse Resp B/P (MAP) Pulse Ox O2 Delivery O2 Flow Rate FiO2 08/15/17 12:15 98.2 82 16 155/64 (94) 96 08/15/17 09:54 18 08/15/17 08:47 97.9 76 18 128/73 (91) 96 08/15/17 04:00 97.5 82 18 122/70 (87) 94 08/15/17 00:00 97.7 79 17 128/65 (86) 93 08/14/17 20:00 97.5 87 18 131/56 (81) 92 08/14/17 16:00 98.4 83 16 120/57 (78) 97 08/14/17 15:00 96 21 I/O 08/14/17 08/14/17 08/14/17 08/15/17 08/15/17 08/15/17 07:00 15:00 23:00 07:00 15:00 23:00 Intake Total 748 ml 240 ml 222 ml 433 ml Output Total 300 ml Balance 448 ml 240 ml 222 ml 433 ml Intake Oral 260 ml 240 ml 222 ml IV Total 488 ml 433 ml Output Urine Total 300 ml # Voids 1 2 1 2 # Bowel Movements 0 1 1 Result Diagram: 08/13/17 1450 08/14/17 0609 Objective Remarks Right foot in walking shoe, has a healing laceration on ventral aspect of toes, has TTP over right foot dorsum No head ecchymosis nor laceration noted A/P Assessment and Plan Right foot fifth phalanx fracture with lacerations. Patient in camboot and weightbearing well per PT with walker. Stable for d/c from podiatry's standpoint with close f/u. HH ordered with wound care and PT. Patient states he has pain meds at home. He is clear to resume his home plavix. Patient was also given a postop shoe in case he wanted to try transitioning to that as well sooner rather than later. His JUAN MANUEL also significantly improved. Pt has met maximum benefit from hospitalization and is clinically stable for discharge. Less than 30 min spent on discharge. Herberth Agudelo MD Aug 15, 2017 12:36
== END 2017-08-15 14:49 | disposition home health service (06) | DRG 86 ==
LOC: PHEFT 11:44 → PHEDA 14:42 → PH3B 15:44
PROVIDERS: ADMIT Hospitalist; ATTEND Hospitalist
DX: S06.5X0A Traumatic subdural hemorrhage without loss of consciousness, initial encounter (principal); N17.9 Acute kidney failure, unspecified; E11.22 Type 2 diabetes mellitus with diabetic chronic kidney disease; E11.42 Type 2 diabetes mellitus with diabetic polyneuropathy; N18.3 Chronic kidney disease, stage 3 (moderate); S92.514B Nondisplaced fracture of proximal phalanx of right lesser toe(s), initial encounter for open fracture; I12.9 Hypertensive chronic kidney disease with stage 1 through stage 4 chronic kidney disease, or unspecified chronic kidney disease; E03.9 Hypothyroidism, unspecified; I25.10 Atherosclerotic heart disease of native coronary artery without angina pectoris; K21.9 Gastro-esophageal reflux disease without esophagitis; M10.9 Gout, unspecified; L40.9 Psoriasis, unspecified; E78.5 Hyperlipidemia, unspecified; N40.0 Benign prostatic hyperplasia without lower urinary tract symptoms; M19.90 Unspecified osteoarthritis, unspecified site; M48.02 Spinal stenosis, cervical region; W11.XXXA Fall on and from ladder, initial encounter; Y92.009 Unspecified place in unspecified non-institutional (private) residence as the place of occurrence of the external cause; Z79.84 Long term (current) use of oral hypoglycemic drugs; Z95.5 Presence of coronary angioplasty implant and graft
CPT/HCPCS: 70450; 72125; 73630; 80048; 80053; 82948; 85025; 85610; 85730; 90715; J0690; J7030; L2114

== ENCOUNTER → 2017-09-24 | Outpatient (CLI) | payer OTHER ==
[~2017-09-24] MED LIST changes: +APRE1TAB3; -APRE1TAB3 PO; +FLUO10TA; -HYDR-3516 PO; -LEVO50TA4 PO; +MELO15TA20; +TRAM50 PO
--- NOTE | 2017-09-26 09:39 | RSPPFT ---
DATE OF PROCEDURE: 09/24/17 COMMENTS: Spirometry shows FVC of 2.7 at 90% of predicted, FEV1 of 2.0 at 87%, FEV1/FVC ratio is normal. Flow is normal at FEF 25, FEF 50, FEF 75 and FEF 25-75. There is a good response after bronchodilator treatment. Lung volumes show residual volume is normal. TLC is decreased. Diffusion capacity is normal. IMPRESSION: 1. Normal spirometry. 2. Good response after bronchodilator. 3. Normal diffusion capacity. 4. Normal lung volumes.
== END ==
LOC: HRSP 10:34
PROVIDERS: ATTEND Internal Medicine Cardiovascular Disease
DX: R06.02 Shortness of breath (principal)
CPT/HCPCS: 94060; 94726; 94729

== ENCOUNTER → 2017-11-18 | Outpatient (CLI) | payer MEDICARE, OTHER ==
[~2017-11-18] MED LIST changes: -FLUO10TA; +FLUO10TA PO; +LEVO50TA4 PO; -MELO15TA20; +NEUR800T PO; +OXYC1TAB35 PO; -TRAM50 PO; +VENTAER INH
[2017-11-18 10:13] LABS: AUTOMATED NEUTROPHIL # 4.9 TH/MM3 (1.8-7.7); BASOPHIL % 0.4 % (0.0-2.0); EOSINOPHIL # 0.4 TH/MM3 (0-0.4); EOSINOPHIL % 4.3 % (0.0-4.0); HEMATOCRIT 40.3 % (39.0-51.0); HEMOGLOBIN 13.9 GM/DL (13.0-17.0); LYMPH % 34.4 % (9.0-44.0); LYMPHOCYTE # 3.2 TH/MM3 (1.0-4.8); MEAN CELL VOLUME 92.9 FL (80.0-100.0); MEAN CORPUSCULAR HEMOGLOBIN 31.9 PG (27.0-34.0); MEAN CORPUSCULAR HGB CONC 34.4 % (32.0-36.0); MEAN PLATELET VOLUME 8.3 FL (7.0-11.0); MONO % 7.5 % (0.0-8.0); MONOCYTE # 0.7 TH/MM3 (0-0.9); NEUT % 53.4 % (16.0-70.0); PLATELET COUNT 213 TH/MM3 (150-450); RED BLOOD COUNT 4.34 MIL/MM3 (4.50-5.90); RED CELL DISTRIBUTION WIDTH 13.6 % (11.6-17.2); WHITE BLOOD COUNT 9.2 TH/MM3 (4.0-11.0)
[2017-11-18 10:20] LABS: PROTHROMBIN TIME - PATIENT 10.2 SEC (9.8-11.6)
[2017-11-18 10:29] LABS: BICARBONATE 21.6 MEQ/L (21.0-32.0); CALCIUM 9.4 MG/DL (8.5-10.1); CREATININE 1.4 MG/DL (0.60-1.30)
--- NOTE | 2017-11-18 10:46 | RADRPT ---
EXAM DATE/TIME: 11/18/2017 10:04 [facility] COMPARISON: No previous studies available for comparison. INDICATIONS : Evaluate for pneumonia, pneumothorax or communicable diseases. Pre-op for cervical spine surgery. MEDICAL HISTORY : Hypertension. Diabetes mellitus type 2. Peripheral vascular disease. SURGICAL HISTORY : Coronary artery stent. ENCOUNTER: Initial ACUITY: 1 day PAIN SCORE: 0/10 LOCATION: Bilateral chest FINDINGS: Mild cardiomegaly is noted. Minimal increased perihilar interstitial markings are noted consistent wi th possible pulmonary vascular congestion or viral pneumonitis. Clinical correlation is recommended. CONCLUSION: Mild cardiomegaly. Minimal increased perihilar markings consistent with possible pulmonary vascular c ongestion or viral pneumonitis. Clinical correlation is recommended. Clinton Hoskins MD on November 18, 2017 at 10:38 Board Certified Radiologist. This report was verified electronically.
== END ==
LOC: CPRE 08:55
PROVIDERS: ATTEND Neurological Surgery
DX: Z01.810 Encounter for preprocedural cardiovascular examination (principal); Z01.811 Encounter for preprocedural respiratory examination; Z01.812 Encounter for preprocedural laboratory examination; Z01.818 Encounter for other preprocedural examination; M50.00 Cervical disc disorder with myelopathy, unspecified cervical region; M48.062 Spinal stenosis, lumbar region with neurogenic claudication; M79.609 Pain in unspecified limb
CPT/HCPCS: 36415; 71046; 80048; 85025; 85610; 85730; 87640; 87641

== ENCOUNTER 2017-11-25 05:54 | Observation (INO) | payer MEDICARE ==
[~2017-11-25] VITALS: Ht 167.6 cm; Wt 119.2 kg
[~2017-11-25 05:54] MED LIST changes: -GABA300C5 PO; -SIME180C2 PO
[2017-11-25] MEDS ORDERED: METOPROLOL TARTRATE 25 MG TAB PO PRN (06:15)
[2017-11-25] MEDS ORDERED: SODIUM CHLORID 0.9% 500 ML IV PRN (06:15)
[2017-11-25] MEDS ORDERED: POVIDONE IODINE 5% (ANTISEPSIS KIT) 4 APPLICATIONS EACH NARE PRN (06:15)
[2017-11-25] MEDS ORDERED: CHLORHEXIDINE GLUCONATE 2 % 1 PACK (2 CLOTHS) TOPICAL PRN (06:15)
[2017-11-25] MEDS ORDERED: LACTATED RINGER'S 1000 ML INJ 1,000 ML IV SCH (06:15)
[2017-11-25] MEDS ORDERED: LACTATED RINGER'S 1000 ML IV PRN (06:15)
[2017-11-25] MEDS ORDERED: ceFAZolin 2 GM PREMIX 50 ML IV SCH (06:30)
[2017-11-25] MEDS ORDERED: TRAM50TA PO (06:40)
[2017-11-25] MEDS ORDERED: THROMBIN (TOPICAL) 5,000 UNIT VIAL ONE (07:24)
[2017-11-25] MEDS ORDERED: LIDOCAINE 1%/EPINEPHrine 1:100,000 SOLN 30 ML VIAL ONE (07:24)
[2017-11-25] MEDS ORDERED: GENTAMICIN SULFATE 80 MG/2 ML VIAL ONE (07:25)
[2017-11-25] MEDS ORDERED: GELFOAM SIZE 100 ONE (07:25)
[2017-11-25] MEDS ORDERED: VASOPRESSIN 20 UNITS/ML VIAL ONE (09:58)
[2017-11-25] MEDS ORDERED: PROPOFOL 500 MG/50 ML INJ 100 ML ONE ×2 (11:01→11:58)
[2017-11-25] MEDS ORDERED: PHENYLEPHRINE HCL 10 MG/ML VIAL ONE ×2 (11:11→13:34)
[2017-11-25] MEDS ORDERED: ePHEDrine/NS 25 MG/5 ML SYRINGE IV ONE (12:00)
[2017-11-25] MEDS ORDERED: PROPOFOL 200 MG/20 ML AMP IV ONE (12:00)
[2017-11-25] MEDS ORDERED: LIDOCAINE HCL 1% PF 5 ML SYRINGE OTHER ONE (12:00)
[2017-11-25] MEDS ORDERED: PHENYLEPHRINE HCL 10 MG/ML VIAL IV ONE (12:00)
[2017-11-25] MEDS ORDERED: LACTATED RINGER'S 1000 ML INJ 2,000 ML IV ONE (12:00)
[2017-11-25] MEDS ORDERED: SODIUM CHLORIDE 0.9% 20 ML VIAL IV ONE (12:00)
[2017-11-25] MEDS ORDERED: ONDANSETRON HCL 4 MG/2 ML VIAL IV ONE (12:00)
[2017-11-25] MEDS ORDERED: SUCCINYLCHOLINE CHLORIDE 200 MG/10 ML VIAL IV ONE (12:00)
[2017-11-25] MEDS ORDERED: DEXAMETHASONE SOD PHOS 4 MG/ML VIAL IV ONE (12:00)
[2017-11-25] MEDS ORDERED: ROCURONIUM INJ 50 MG/5 ML SYRINGE IV PUSH ONE (12:00)
[2017-11-25] MEDS ORDERED: PHENYLEPH/NS 1000 MCG/10 ML SYR IV ONE (12:00)
[2017-11-25] MEDS ORDERED: ACETAMINOPHEN/HYDROcodone 325 MG/5 MG TAB PO PRN (13:15)
[2017-11-25] MEDS ORDERED: NALOXONE HCL 0.4 MG/ML AMP IV PUSH PRN (13:15)
[2017-11-25] MEDS ORDERED: ONDANSETRON HCL 4 MG/2 ML VIAL IV PUSH PRN (13:15)
[2017-11-25] MEDS ORDERED: MORPHINE SULFATE 4 MG/ML INJ IV PUSH PRN (13:15)
[2017-11-25] MEDS ORDERED: NITROGLYCERIN 0.4 MG SL 25 TABS/BTL SL PRN (13:15)
--- NOTE | 2017-11-25 13:20 | PD.OP ---
Operative Report Date of Surgery: Nov 25, 2017 Preoperative Diagnosis: (1) Cervical spinal stenosis (2) Cervical disc disease with myelopathy 1. C4 5 degenerative disc disease 2. Severe C4 5 stenosis with cord compression 3. Cervical myelopathy Postoperative Diagnosis: (1) Cervical spinal stenosis (2) Cervical disc disease with myelopathy 1. C4 5 degenerative disc disease 2. Severe C4 5 stenosis with cord compression 3. Cervical myelopathy Procedure: 1. C4-5 anterior cervical discectomy, resection posterior osteophytic disc complexes, bilateral foraminotomies 2. C4-5 anterior cervical interbody fusion, composite allograft bone 3. C4-5 anterior cervical instrumentation Anesthesia: Gen. Surgeon: Fidel Vallecillo Rail Switch Operator(s): Adriana Zheng Operation and Findings: Findings: Extensive posterior osteophytic disc complex with severe spinal canal and foraminal stenosis at the C5 4-5 level. Significant hypertrophy of the posterior longitudinal ligament with ligament calcification. Procedure in detail: The patient was brought into the operating room and positioned in supine position on the 3080 table with the head and neck in neutral position. Hall catheter was placed. Lines were established by Anesthesia. Gen. endotracheal anesthesia was induced without difficulty, taking care not to significantly flex or extend the patient's neck during intubation and positioning. Leads for intraoperative neuro monitoring were placed and a baseline study obtained. All extremities were appropriately padded. The neck and upper chest were shaved with clippers and sterilely prepped and draped. Appropriate timeout procedure was performed with all personnel present and in agreement 1% Xylocaine with epinephrine was used for local infiltration over the incision site which was made transversely at the left C4-5 level and carried sharply down through the platysma muscle. The exposure was continued medial to the sternocleidomastoid muscle and carotid artery, and lateral to the trachea and esophagus. The prevertebral fascia was elevated away from the anterior longitudinal ligament with a Kitner sponge. The longus coli muscle on each side was elevated with the Samaniego elevator. The self-retaining retractor was placed with the blades beneath the longus coli muscle on each side. The appropriate levels were confirmed with intraoperative C-arm and preoperative imaging studies. The microscope was brought into place and used for the remainder of the procedure including the closure. The 14 mm distraction pins were used as needed for gentle distraction during the procedure. The procedure was performed at the C4-5 level The anterior osteophyte was resected with the Leksell rongeur. The disc and annulus was incised with a 15 blade knife and discectomy performed with pituitary biopsy forceps and straight and angled curettes. The TPS drill with the 5 mm barrel bur was used to decorticate the endplates and removed the majority of the osteophyte along the anterior spinal canal as well as the right and left uncovertebral joint. The thin ligament dissector was used to free up the posterior annulus and ligament from the vertebral body margin. The remainder of the resection of the posterior annulus and ligament as well as the posterior osteophyte and bilateral uncovertebral joint was performed with the 2 and 3 mm thin footplate Kerrison rongeurs. A component of herniated nucleus pulposus was encountered posterior to the annulus and was lifted away from the thecal sac with the thickened ligament dissector and removed. Significant posterior osteophyte was encountered and extensively removed. The posterior vertebral bodies were undercut with the Kerrison rongeur and the TPS drill with the 4 mm danika bur as needed to fully decompress the anterior spinal canal. The appropriate size 7 x 9 mm V G2 bone graft was then placed at each level with a good fit of the graft. The blunt nerve hook was used to probe beneath the bone graft to ensure that there was no impingement on the thecal sac or exiting nerve roots. The 26 mm Precision anterior cervical plate was then chosen and the bone screws were placed with the 16 mm fixed screws at the caudal most level and the 14 mm variable screws at the cephalad level of the decompression. The screws were firmly secured and the locking cams engaged. The entire construct was checked with intraoperative C-arm and felt to be satisfactory. The 10 Polish drain was brought out through a small incision in the left lower neck and secured to the skin with nylon suture and attached to sterile suction. The closure was performed with 3-0 Vicryl running for the platysma and interrupted for the subcutaneous closure, with 4-0 Vicryl running for the subcuticular closure. A dressing of sterile Mastisol, Steri-Strips, and Primapore dressing was placed. The patient was placed into a cervical collar, and taken to recovery room in stable condition. All counts were correct at the end of the case. Estimated blood loss was 100 cc No specimen was sent to pathology. Intraoperative neuro monitoring remained stable during the procedure. Fidel Vallecillo MD Nov 25, 2017 13:20
[2017-11-25] MEDS ORDERED: DO NOT ADM ANY ANTICOAGULANT DRUGS PRN (13:22)
[2017-11-25] MEDS ORDERED: PHENYLEPHRINE INJ 40 MG in DEXTROSE 5% IN WATE 500 ML INJ 496 ML IV PRN ×2 (13:30)
[2017-11-25] MEDS ORDERED: GLUCAGON 1 MG/ML VIAL OTHER PRN (13:30)
[2017-11-25] MEDS ORDERED: TERBUTALINE INJ 1 MG/ML AMP SQ PRN (13:30)
[2017-11-25] MEDS ORDERED: DEXTROSE 50% IN WATER 50 ML VIAL(D50) IV PUSH PRN (13:30)
--- NOTE | 2017-11-25 14:20 | RADRPT ---
EXAM DATE/TIME: 11/25/2017 08:44 [facility] COMPARISON: No previous studies available for comparison. INDICATIONS : Cervical fusion C4-C5, neck pain. MEDICAL HISTORY : None. SURGICAL HISTORY : None. ENCOUNTER: Initial ACUITY: 1 day PAIN SCORE: Non-responsive. LOCATION: cervical spine FINDINGS: Status post anterior cervical fusion C4-C5. Alignment anatomic. Surgical drain is evident. CONCLUSION: Anatomic alignment. Nader Moffett MD FACR on November 25, 2017 at 14:16 Board Certified Radiologist. This report was verified electronically.
[2017-11-25] MEDS: 1/2 NS + KCL 20 MEQ INJ 1,000 ML IV SCH (14:40)
[2017-11-25] MEDS ORDERED: *RESP: ALBUTEROL 2.5 MG/3 ML NEB (PRN) PERIprocedural Use ONLY NEB ONE (14:53)
[2017-11-25] MEDS: INSULIN NovoLIN REGULAR SUPPLEMENTAL SCALE SQ SCH ×2 (17:00→20:37)
[2017-11-25 17:45] VITALS: BP 139/65; PULSE 102; RESP 16; TEMP 98.1; O2SAT 94
[2017-11-25] MEDS: DOCUSATE SODIUM 100 MG CAP PO SCH (20:15)
[2017-11-25] MEDS: GABAPENTIN 400 MG CAP PO SCH (20:15)
[2017-11-25 20:24] VITALS: BP 135/63; PULSE 102; RESP 18; TEMP 97.9; O2SAT 94
[2017-11-25] MEDS ORDERED: TAMSULOSIN HCL 0.4 MG CAP PO SCH (21:00)
[2017-11-25] MEDS: ACETAMINOPHEN/HYDROcodone 325 MG/10 MG TAB PO PRN (21:56)
[2017-11-26 00:10] VITALS: BP 139/68; PULSE 87; RESP 18; TEMP 97.8; O2SAT 95
[2017-11-26] MEDS: 1/2 NS + KCL 20 MEQ INJ 1,000 ML IV SCH ×2 (01:48→07:45)
[2017-11-26 04:40] LABS: AUTOMATED NEUTROPHIL # 9.2 TH/MM3 (1.8-7.7); BASOPHIL % 0.1 % (0.0-2.0); HEMATOCRIT 36.4 % (39.0-51.0); HEMOGLOBIN 12.1 GM/DL (13.0-17.0); LYMPH % 8.9 % (9.0-44.0); LYMPHOCYTE # 0.9 TH/MM3 (1.0-4.8); MEAN CELL VOLUME 93.5 FL (80.0-100.0); MEAN CORPUSCULAR HGB CONC 33.2 % (32.0-36.0); MEAN PLATELET VOLUME 8.3 FL (7.0-11.0); MONO % 5.5 % (0.0-8.0); MONOCYTE # 0.6 TH/MM3 (0-0.9); NEUT % 85.5 % (16.0-70.0); PLATELET COUNT 154 TH/MM3 (150-450); RED BLOOD COUNT 3.89 MIL/MM3 (4.50-5.90); RED CELL DISTRIBUTION WIDTH 13.6 % (11.6-17.2); WHITE BLOOD COUNT 10.7 TH/MM3 (4.0-11.0)
[2017-11-26 04:41] VITALS: BP 125/59; PULSE 74; RESP 18; TEMP 97.8; O2SAT 98
[2017-11-26 04:58] LABS: CALCIUM 8.3 MG/DL (8.5-10.1); CREATININE 1.23 MG/DL (0.60-1.30)
[2017-11-26 04:59] LABS: BICARBONATE 22.5 MEQ/L (21.0-32.0)
[2017-11-26] MEDS ORDERED: LEVOTHYROXINE SODIUM 50 MCG TAB PO SCH (06:00)
[2017-11-26] MEDS: INSULIN NovoLIN REGULAR SUPPLEMENTAL SCALE SQ SCH ×3 (07:44→16:32)
[2017-11-26] MEDS: GABAPENTIN 400 MG CAP PO SCH (07:46)
[2017-11-26] MEDS: DOCUSATE SODIUM 100 MG CAP PO SCH (07:46)
[2017-11-26] MEDS: ACETAMINOPHEN/HYDROcodone 325 MG/10 MG TAB PO PRN (07:51)
[2017-11-26 08:00] VITALS: BP 133/63; PULSE 75; RESP 16; TEMP 97.3; O2SAT 95
[2017-11-26] MEDS ORDERED: FLUoxetine HCL 10 MG CAP PO SCH (09:00)
[2017-11-26] MEDS ORDERED: metFORMIN HCL 500 MG TAB PO SCH (09:00)
[2017-11-26] MEDS ORDERED: FINASTERIDE 5 MG TAB PO SCH (09:00)
[2017-11-26] MEDS ORDERED: FUROSEMIDE 20 MG TAB PO SCH (09:00)
[2017-11-26] MEDS ORDERED: POTASSIUM CHLORIDE 10 MEQ CONTROLLED RELEASE TAB PO SCH (09:00)
[2017-11-26] MEDS ORDERED: LISINOPRIL 20 MG TAB PO SCH (09:00)
[2017-11-26] MEDS ORDERED: ALLOPURINOL 100 MG TAB PO SCH (09:00)
[2017-11-26] MEDS ORDERED: PANTOPRAZOLE SOD 40 MG DELAYED RELEASE TAB PO SCH (09:00)
--- NOTE | 2017-11-26 09:53 | PD.CONS ---
HPI Service [facility] Hospitalists Consult Requested By Neurosurgery Reason for Consult Medical management Primary Care Physician Jackson Alberts DO Diagnoses: History of Present Illness Mr. Dodge is a pleasant 77-year-old male with a history of CAD, diabetes mellitus who was admitted to the hospital after surgery for cervical spinal stenosis. Postsurgery, hospitalist service was consulted for medical management. At the time of this interview, patient denies any chest pain, shortness of breath, fever or chills. He follows up with Dr. Salinas ( cardiology). His last stent was placed 3 years ago. Patient reports that prior to this surgery he was on aspirin and Plavix. Review of Systems Except as stated in HPI: all other systems reviewed are Neg Past Family Social History Allergies: Coded Allergies: No Known Allergies (Verified Adverse Reaction, Unknown, 11/25/17) Past Medical History Coronary artery disease, low back pain, diabetes mellitus, diabetes mellitus Past Surgical History Low back surgery in 2001, prostate surgery, appendectomy Reported Medications Tamsulosin 0.4 mg p.o. nightly Nitroglycerin as needed Lisinopril 20 mg p.o. daily Tramadol 50 mg every 4 hours as needed Gabapentin 800 mg twice daily Fluoxetine 10 mg p.o. daily Potassium chloride 10 mEq daily Lasix 20 mg p.o. daily Protonix 40 mg Metformin 500 mg p.o. daily Levothyroxine 50 mcg p.o. daily Finasteride 5 mg p.o. daily Allopurinol 100 mg p.o. daily Apremilast 30mg Qday. Family History Brother had lung cancer, mother when she was 54 years old from kidney failure, father had lung cancer Social History Denies using alcohol or tobacco Physical Exam Vital Signs Vital Signs Date Time Temp Pulse Resp B/P (MAP) Pulse Ox O2 Delivery O2 Flow Rate FiO2 11/26/17 08:00 97.3 75 16 133/63 (86) 95 11/26/17 04:41 97.8 74 18 125/59 (81) 98 11/26/17 00:10 97.8 87 18 139/68 (91) 95 11/25/17 20:24 97.9 102 18 135/63 (87) 94 11/25/17 17:45 98.1 102 16 139/65 (89) 94 11/25/17 16:00 101 20 142/65 (90) 94 Nasal Cannula 3 Humidified 11/25/17 15:30 105 20 134/67 (89) 94 Nasal Cannula 3 Humidified 11/25/17 15:00 98.7 102 22 141/71 (94) 93 Nasal Cannula 3 Humidified 11/25/17 14:45 103 22 136/64 (88) 94 Nasal Cannula 3 Humidified 11/25/17 14:30 104 20 139/64 (89) 93 Nasal Cannula 3 Humidified 11/25/17 14:15 105 20 134/57 (82) 93 Nasal Cannula 3 Humidified 11/25/17 14:00 108 21 133/61 (85) 93 Nasal Cannula 3 Humidified 11/25/17 13:50 109 20 134/59 (84) 94 Nasal Cannula 3 Humidified 11/25/17 13:45 108 22 84/44 (57) 94 Nasal Cannula 3 11/25/17 13:30 104 20 86/42 (57) 95 Nasal Cannula 3 11/25/17 13:22 99.1 104 19 78/37 (51) 92 Nasal Cannula 3 Physical Exam GENERAL: This is a well-nourished, well-developed patient, in no apparent distress. SKIN: No rashes, ecchymoses or lesions. Warm and dry. HEAD: Atraumatic. Normocephalic. No temporal or scalp tenderness. Cervical collar in place. EYES: Pupils equal round and reactive. No injection or drainage. ENT: Nose without bleeding, purulent drainage or septal hematoma. Airway patent. NECK: Trachea midline. No lymphadenopathy. Supple, nontender, no meningeal signs. CARDIOVASCULAR: Regular rate and rhythm without murmurs, gallops, or rubs. No JVD. RESPIRATORY: Clear to auscultation. Breath sounds equal bilaterally. No wheezes , rales, or rhonchi. GASTROINTESTINAL: Abdomen soft, non-tender, nondistended. No guarding. MUSCULOSKELETAL: Extremities without clubbing, cyanosis, or edema. NEUROLOGICAL: Awake and alert. Cranial nerves II through XII intact. No focal neurological deficits. Normal speech. Laboratory Laboratory Tests Test 11/26/17 04:19 White Blood Count 10.7 Red Blood Count 3.89 Hemoglobin 12.1 Hematocrit 36.4 Mean Corpuscular Volume 93.5 Mean Corpuscular Hemoglobin 31.0 Mean Corpuscular Hemoglobin Concent 33.2 Red Cell Distribution Width 13.6 Platelet Count 154 Mean Platelet Volume 8.3 Neutrophils (%) (Auto) 85.5 Lymphocytes (%) (Auto) 8.9 Monocytes (%) (Auto) 5.5 Eosinophils (%) (Auto) 0.0 Basophils (%) (Auto) 0.1 Neutrophils # (Auto) 9.2 Lymphocytes # (Auto) 0.9 Monocytes # (Auto) 0.6 Eosinophils # (Auto) 0.0 Basophils # (Auto) 0.0 CBC Comment DIFF FINAL Differential Comment Blood Urea Nitrogen 24 Creatinine 1.23 Random Glucose 120 Calcium Level 8.3 Sodium Level 138 Potassium Level 5.2 Chloride Level 108 Carbon Dioxide Level 22.5 Anion Gap 8 Estimat Glomerular Filtration Rate 57 Result Diagram: 11/26/17 0419 11/26/17 0419 Imaging Last Impressions Cervical Spine X-Ray 11/25/17 0000 Signed Impressions: Service Date/Time: Saturday, November 25, 2017 08:44 - CONCLUSION: Anatomic alignment. Nader Moffett MD FACR Assessment and Plan Assessment and Plan Mr. Dodge is a pleasant 77-year-old male with a history of CAD, diabetes mellitus who was admitted to the hospital after ACDF for cervical spinal stenosis. Cervical spinal stenosis -status post ACDF. Management per neurosurgery. Coronary artery disease Diabetes mellitus -Patient was taking prior to this surgery -Patient follows up with cardiology in the outpatient setting. -Would advise patient not to take Plavix any longer. He has taken Plavix for almost 3 years. -Postsurgery when okay with neurosurgery patient should be able to continue aspirin -Continue Lipitor, lisinopril. - DM - continue Metformin. Patient reports that with once a day Metformin, his glucose is well controlled. -BPH -continue tamsulosin and finasteride. Full code. Patient will likely be discharged today. Thank you for the consult. Scottie Cisneros DO Nov 26, 2017 09:53
[2017-11-26 12:00] VITALS: BP 114/53; PULSE 74; RESP 16; TEMP 97.6; O2SAT 94
[2017-11-26] MEDS ORDERED: DOCU1CAP39 PO (16:05)
--- NOTE | 2017-11-26 16:07 | HHI.FF ---
Face to Face Verification Diagnosis: (1) Cervical spinal stenosis (2) Cervical disc disease with myelopathy Physical Therapy Order: Evaluate and Treat Occupational Therapy Order: Evaluate and Treat Home Health Nursing Order: Nursing assessment with vital signs I have seen patient Brianda Dodge on 11/26/17. My clinical findings support the need for the requested home health care services because: Deconditioned w/ increased weakness Limited ability to care for self High risk of falls I certify that my clinical findings support that this patient is homebound because: Post-op weakness Unsteady gait/balance Unsafe to leave home unassisted Robin Sahni Nov 26, 2017 16:07
--- NOTE | 2017-11-26 16:13 | HHI.DCPOC ---
Discharge Care Plan Diagnosis: (1) Cervical spinal stenosis (2) Cervical disc disease with myelopathy Your Health Problems Are: Incision/Drains Exercise Tolerance Loss of Movements Goals to Promote Your Health * To prevent worsening of your condition and complications * To maintain your health at the optimal level No lifting, bending, pushing, pulling or other strenuous activity. Wear the cervical collar on at all times. It may briefly be removed for personal hygiene. Leave the dressing on over the surgical incision until . After that you may take the outer dressing off but leave the steri-strips on and let them fall off on their own. No showering until the surgical incision is totally healed. Take the pain medication as prescribed. Avoid taking any medication that contains aspirin or NSAIDs (ibuprofen, naproxen , Motrin, Advil, Naprosyn) for at least a month. Do not take your atorvastatin or clopidogrel until told to do so in follow up Follow up in the office approximately for a wound check. Directions to Meet Your Goals Take your medications as prescribed Follow your dietary instruction Follow activity as directed No lifting, bending, pushing, pulling or other strenuous activity. Wear the cervical collar on at all times. It may briefly be removed for personal hygiene. Leave the dressing on over the surgical incision until . After that you may take the outer dressing off but leave the steri-strips on and let them fall off on their own. No showering until the surgical incision is totally healed. Take the pain medication as prescribed. Avoid taking any medication that contains aspirin or NSAIDs (ibuprofen, naproxen , Motrin, Advil, Naprosyn) for at least a month. Do not take your atorvastatin or clopidogrel until told to do so in follow up Follow up in the office approximately for a wound check. Keep your appointments as scheduled Take your immunizations and boosters as scheduled If your symptoms worsen call your PCP, if no PCP go to Urgent Care Center or Emergency Room Smoking is Dangerous to Your Health. Avoid second hand smoke Call the 24-hour hour crisis hotline for domestic abuse at Robin Sahni Nov 26, 2017 16:13
--- NOTE | 2017-11-26 16:28 | HHI.DS ---
Discharge Summary Admission Date Nov 25, 2017 at 13:12 Discharge Date: Nov 26, 2017 Admitting Diagnosis (1) Cervical spinal stenosis ICD Code: M48.02 - Spinal stenosis, cervical region (2) Cervical disc disease with myelopathy ICD Code: M50.00 - Cervical disc disorder with myelopathy, unspecified cervical region Procedures : 1. C4-5 anterior cervical discectomy, resection posterior osteophytic disc complexes, bilateral foraminotomies 2. C4-5 anterior cervical interbody fusion, composite allograft bone 3. C4-5 anterior cervical instrumentation CBC/BMP: 11/26/179 11/26/17 041 Significant Findings Laboratory Tests Test 11/26/17 04:19 Red Blood Count 3.89 MIL/MM3 (4.50-5.90) Hemoglobin 12.1 GM/DL (13.0-17.0) Hematocrit 36.4 % (39.0-51.0) Neutrophils (%) (Auto) 85.5 % (16.0-70.0) Lymphocytes (%) (Auto) 8.9 % (9.0-44.0) Neutrophils # (Auto) 9.2 TH/MM3 (1.8-7.7) Lymphocytes # (Auto) 0.9 TH/MM3 (1.0-4.8) Blood Urea Nitrogen 24 MG/DL (7-18) Random Glucose 120 MG/DL (74-106) Calcium Level 8.3 MG/DL (8.5-10.1) Potassium Level 5.2 MEQ/L (3.5-5.1) Chloride Level 108 MEQ/L (98-107) Estimat Glomerular Filtration Rate 57 ML/MIN (>89) PE at Discharge GENERAL: Awake & alert in the chair watching TV & visiting with his family. His affect is normal & he readily interacts. He is not in any apparent distress. HEENT: Normocephalic, atraumatic. NECK: [place] J cervical collar in place. Midline cervical spine NTTP. Left anterior neck surgical incision minimally TTP, dressing intact w/o shadowing, DEBBIE drain to bulb suction w/serosanguinous drainage, 40 mL as of shift change this morning. MUSCULOSKELETAL: ELIAS spontaneously & purposefully. Extremities NTTP. No evident clubbing or deformity. NEUROLOGICAL: AAOx3. Speech clear & appropriate. Follows simple commands w/o difficulty. Sensation intact to light touch to all extremities. Motor strength is 5/5 to all major flexion & extension muscle groups of the extremities, to include the wrist flexors & extensors and the hand intrinsics & extrinsics. Hospital Course 11/25: The patient presented to [facility] to have a C4-5 ACDF w/resection of a osteophytic disc complex. Post-operatively he was doing well and admitted to a regular med/surg floor for further monitoring & care. 11/26: Physical Therapy evaluated the patient and recommended that he go to inpatient rehab due to the number of steps in his home to the bedroom and the need to use a wheeled walker. The [place] distance education faculty liaison met with the patient and his and they declined inpatient rehab there or at a SNF. The patient wants to go home with home health for further therapy. He states that he has a recliner that he is able to sleep in on the first floor of the home. Dr Vallecillo was made aware and felt the patient was able to go home with home health. When seen that afternoon the patient was doing well and had no sensorimotor deficits. He denied any midline cervical spine or surgical incision pain. He had no difficulty swallowing or sore throat. He denied any pain, numbness, tingling or weakness to the extremities. He was therefore discharged home with home health. Pt Condition on Discharge: Good Discharge Disposition: Disch w/ Home Health Serv Discharge Instructions DIET: Follow Instructions for: As Tolerated, No Restrictions ACTIVITIES You can perform: Weight Bearing As Davin Activities to Avoid: Lifting/Bending, Strenuous Activity, Bathing, Shower ADDITIONAL Activity Instructio: No lifting, bending, pushing, pulling or other strenuous activity. Wear the cervical collar on at all times. It may briefly be removed for personal hygiene. No showering until the surgical incision is totally healed. Additional Information Leave the dressing on over the surgical incision until . After that you may take the outer dressing off but leave the steri-strips on and let them fall off on their own. No showering until the surgical incision is totally healed. Take the pain medication as prescribed. Avoid taking any medication that contains aspirin or NSAIDs (ibuprofen, naproxen , Motrin, Advil, Naprosyn) for at least a month. Do not take your atorvastatin or clopidogrel until told to do so in follow up. Follow up in the office approximately for a wound check. Robin Sahni Nov 26, 2017 16:28
== END 2017-11-26 18:08 | disposition home health service (06) ==
LOC: HSDC 05:54 → HSDI 13:12 → N05B 16:35
PROVIDERS: ADMIT Neurological Surgery; ATTEND Neurological Surgery
DX: M48.02 Spinal stenosis, cervical region (principal); M50.021 Cervical disc disorder at C4-C5 level with myelopathy; E11.9 Type 2 diabetes mellitus without complications; Z79.4 Long term (current) use of insulin; Z79.899 Other long term (current) drug therapy
CPT/HCPCS: 00600; 20930; 22551; 22845; 72040; 76000; 80048; 82948; 85025; 94150; 96365; 96366; 97162; C1713; G0378; G8987; G8988; J0330; J0690; J1100; J1580; J2370; J2405; J3010; J7120; J7613; L0150; L0172

== ENCOUNTER 2017-11-27 05:14 | Inpatient (IN) | payer MEDICARE ==
[~2017-11-27] VITALS: Ht 167.6 cm; Wt 115.0 kg
[2017-11-27] VITALS (11 sets, daily range): BP systolic 91–165; BP diastolic 51–71; PULSE 72–94; RESP 14–32; TEMP 97.8–98.8; O2SAT 95–100
[~2017-11-27 05:14] MED LIST changes: -ASPI81TA81 PO; -ATOR40TA16 PO; -CLOP75TA PO; +DOCU1CAP39 PO; -OXYC1TAB35 PO; +TRAM50TA PO; -VENTAER INH
[2017-11-27] MEDS ORDERED: IOHEXOL 350 MG/ML 10 ML VIAL (for RAD DIAG) IVCONTRAST ONE ×2 (05:15→12:40)
[2017-11-27] MEDS ORDERED: MORPHINE SULFATE 4 MG/ML INJ IV PUSH ONE ×2 (06:00→11:15)
[2017-11-27] MEDS ORDERED: ONDANSETRON HCL 4 MG/2 ML VIAL IV PUSH ONE (06:00)
--- NOTE | 2017-11-27 06:43 | PD ---
HPI Chief Complaint: Respiratory Symptoms Time Seen by Provider: 05:41 Travel History International Travel<30 days: No Contact w/Intl Traveler<30days: No Traveled to known affect area: No History of Present Illness HPI The patient is a 77 year old male who presents to the [facility] emergency department with a history of awakening this morning with severe pain and the left jaw, left side of face, and left shoulder. The patient's recent history is significant for being postop day #2 status post cervical surgery by Dr. Vallecillo for cervical spine stenosis. The surgery was done on November 25. The patient was feeling so well yesterday on the that he was discharged home. The patient reports that he was not discharged home on any pain medication. He reports that he had tramadol at home and took 2 at 4 AM today. He denies having any numbness or tingling to his extremities. He denies having any weakness to his extremities. He denies having any chest pain or chest pressure. He does report having shortness of breath. He also reports having a congestion, drainage in the back of his throat that he is having difficulty clearing. He reports that this began after the surgery. He reports that he has been attempting to cough this up, and when he has been able to bring it up it is yellow tinged. On review of systems otherwise, the patient denies having any known recent fevers, abdominal pain, vomiting, diarrhea, urinary symptoms, or other neurologic symptoms. He reports that he did have a small bowel movement within the last 24 hours since his surgery. [facility] Past Medical History Narrative Medical The patient's past medical history is significant for hyperlipidemia, or Zbigniew artery disease with stent placement, diabetes mellitus, hypertension, cervical spine stenosis status post surgical repair, chronic low back pain. Arthritis: Yes Autoimmune Disease: Yes (PSORIASIS) Anxiety: No Depression: No Cancer: No Cardiac Catheterization: Yes Cardiovascular Problems: Yes (stents) High Cholesterol: Yes Chest Pain: Yes Diabetes: Yes Patient Takes Glucophage: No Diminished Hearing: No Endocrine: Yes GERD: Yes Gout: Yes Genitourinary: No Hepatitis: No Hiatal Hernia: No Hypertension: Yes Immune Disorder: No Musculoskeletal: No Neurologic: No Psychiatric: No Reproductive: No Respiratory: No Thyroid Disease: Yes Tetanus Vaccination: < 5 Years Influenza Vaccination: No Past Surgical History Narrative Surgical The patient's past surgical history is significant for low back surgery in 2002 , prostate surgery, appendectomy, cervical spine surgery on November 25, 2017. Abdominal Surgery: No AICD: No Appendectomy: Yes Cardiac Surgery: No Ear Surgery: No Endocrine Surgery: No Eye Surgery: No Genitourinary Surgery: No Gynecologic Surgery: No Joint Replacement: No Oral Surgery: No Pacemaker: No Thoracic Surgery: No Other Surgery: Yes (stents and spinal) Social History Alcohol Use: Yes (social) Tobacco Use: No Substance Use: No Allergies-Medications (Allergen,Severity, Reaction): Coded Allergies: No Known Allergies (Verified Adverse Reaction, Unknown, 11/27/17) Reported Meds & Prescriptions Reported Meds & Active Scripts Active Dok (Docusate Sodium) 100 Mg Cap 100 Mg PO BID Reported Tramadol (Tramadol HCl) 50 Mg Tab 50 Mg PO Q4H PRN Neurontin (Gabapentin) 800 Mg Tab 800 Mg PO BID Levothyroxine (Levothyroxine Sodium) 50 Mcg Tab 50 Mcg PO DAILY Fluoxetine (Fluoxetine HCl) 10 Mg Tab 1 Tab PO DAILY Otezla (Apremilast) 30 Mg Tab Pantoprazole (Pantoprazole Sodium) 40 Mg Tab 40 Mg PO DAILY Nitroglycerin SL (Nitroglycerin) 0.4 Mg Subl 0.4 Mg SL DIRECTED PRN ONE TABLET UNDER THE TONGUE NEEDED FOR CHEST PAIN, MAY REPEAT EVERY FIVE MINUTES FOR A TOTAL OF 3 DOSES OR CALL 911 IF NO RELIEF Potassium Chloride ER (Potassium Chloride) 10 Meq Tab 10 Meq PO DAILY Tamsulosin (Tamsulosin HCl) 0.4 Mg Cap 0.4 Mg PO HS Allopurinol 100 Mg Tab 100 Mg PO DAILY Furosemide 20 Mg Tab 20 Mg PO DAILY Finasteride 5 Mg Tab 5 Mg PO DAILY Do not crush. Metformin (Metformin HCl) 500 Mg Tab 500 Mg PO DAILY With a meal Lisinopril 20 Mg Tab 20 Mg PO DAILY Review of Systems Except as stated in HPI: all other systems reviewed are Neg General / Constitutional: No: Fever Eyes: No: Visual changes HENT: Positive: Congestion, Other (Facial pain), No: Headaches Cardiovascular: Positive: Dyspnea on exertion, No: Chest Pain or Discomfort Respiratory: Positive: Cough, Shortness of Breath Gastrointestinal: No: Nausea, Vomiting, Diarrhea, Abdominal Pain Genitourinary: No: Dysuria Musculoskeletal: No: Pain Skin: No Rash Neurologic: No: Weakness, Focal Abnormalities, Change in Mentation, Slurred Speech, Sensory Disturbance Psychiatric: No: Depression Endocrine: No: Polydipsia Hematologic/Lymphatic: No: Easy Bruising Physical Exam Narrative General: The patient is a well-developed malnourished male, uncomfortable appearing on arrival related to pain that he reports is in the left side of his face, jaw, left shoulder. The patient arrives with a [place] collar in place. Head and Neck exam: Head is normocephalic atraumatic. Eyes: EOMI, pupils are equal round and reactive to light. Nose: Midline septum with pink mucous membranes Mouth: Dentition unremarkable. Moist mucus membranes. Posterior oropharynx is not erythematous. No tonsillar hypertrophy. Uvula midline. Airway patent. Neck: The patient spine was immobilized at the top of the bed and the [place] collar was gently removed. The patient's bandage was also gently removed. The patient's postoperative wound appears to be in good repair without any signs of swelling or significant drainage. No palpable lymphadenopathy. No nuchal rigidity. No thyromegaly. Cardiovascular: Regular rate and rhythm without murmurs, gallops, or rubs. No pulse deficit to the extremities on simultaneous auscultation and palpation of his radial artery. Lungs: Clear to auscultation bilaterally. No wheezes, rhonchi, or rales. Abdomen: Soft, without tenderness to palpation in all 4 quadrants of the abdomen. No guarding, rebound, or rigidity. Normal bowel sounds are audible. No tenderness on palpation of McBurney's point. Negative Bay sign. Extremities: No clubbing or cyanosis. The patient has trace pedal edema bilateral lower extremities. No calf tenderness on palpation. Negative Homans sign. 2+ pulses in all 4 extremities. Back: No spinous process tenderness to palpation. No costovertebral angle tenderness to palpation. Neurologic Exam: Cranial nerves 2-12 were intact on exam. Strength is 5/5 in all 4 extremities. No sensory deficits noted. Skin Exam: No rash noted. Intact skin that is warm and dry. Data Data Last Documented VS Vital Signs Date Time Temp Pulse Resp B/P (MAP) Pulse Ox O2 Delivery O2 Flow Rate FiO2 11/27/17 07:18 85 14 91/51 (64) 96 Nasal Cannula 2.00 11/27/17 05:20 97.8 Orders Orders Electrocardiogram (11/27/17 05:55) Complete Blood Count With Diff (11/27/17 05:55) Comprehensive Metabolic Panel (11/27/17 05:55) Creatine Kinase (Cpk) (11/27/17 05:55) Ckmb (Isoenzyme) Profile (11/27/17 05:55) Troponin I (11/27/17 05:55) B-Type Natriuretic Peptide (11/27/17 05:55) Prothrombin Time / Inr (Pt) (11/27/17 05:55) Act Partial Throm Time (Ptt) (11/27/17 05:55) Magnesium (Mg) (11/27/17 05:55) Chest, Single Ap (11/27/17 05:55) Iv Access Insert/Monitor (11/27/17 05:55) Ecg Monitoring (11/27/17 05:55) Oximetry (11/27/17 05:55) Morphine Inj (Morphine Inj) (11/27/17 06:00) Ondansetron Inj (Zofran Inj) (11/27/17 06:00) Blood Culture (11/27/17 06:59) Lactic Acid Sepsis Protocol (11/27/17 06:59) Ct Soft Tiss Neck W Iv Cont (11/27/17 07:13) MDM Medical Decision Making Medical Screen Exam Complete: Yes Emergency Medical Condition: Yes Medical Record Reviewed: Yes Interpretation(s) Last Impressions Chest X-Ray 11/27/17 0555 Signed Impressions: Service Date/Time: Monday, November 27, 2017 06:31 - CONCLUSION: Patchy infiltrates in both lower lungs, left greater than right. Jones Candelario MD Differential Diagnosis Postoperative hematoma in the neck, versus seroma, versus postop pneumonia, versus congestive heart failure, versus acute coronary syndrome Narrative Course During the course of the patient's emergency department visit, the patient's history, examination, and differential diagnosis were reviewed with the patient. The patient was placed on a cardiac tech with oximetry and frequent blood pressure monitoring. The patient had IV access obtained and blood work sent for analysis. The patient had an EKG done on arrival that shows a sinus rhythm heart rate of 81, QRS duration is 93 ms, QTC is [address] segment elevation. The patient was initially provided morphine 4 mg IV for pain, Zofran 4 mg IV for nausea. Radiology studies were reviewed and remarkable for a chest x-ray that she has bilateral lung infiltrates in the lower lungs in the left greater than the right. There is a concern for a postoperative pneumonia in this patient. The patient had blood cultures 2 drawn, lactic acid sent for analysis. The patient was started on Rocephin 1 g IV, Zithromax 500 IV. A call was placed out to the patient's neurosurgeon. I spoke to at approximately 7:15 AM. He reports that he is currently out of town. He agrees with the plan to proceed with a CT with contrast of the neck to evaluate for possible postoperative complications. He agrees with the plan of the patient should be admitted to the hospitalist service for continued treatment of his bilateral lung infiltrates. He recommends that once the imaging is completed the patient's case be discussed with the neurosurgeon on-call, Dr. Hi. The patient's case was checked out to the oncoming emergency physician, Dr. Gonzalez at the conclusion of my shift. She will reevaluate the patient including the laboratory studies and imaging studies. Physician Communication Physician Communication At approximately 7:15 AM I spoke to regarding this patient's case. He reports that he is currently out of town. He does agree with the plan to do a soft tissue CT of the neck. He agrees the patient being admitted to the hospitalist service for treatment of his bilateral infiltrates. He recommends that the neurosurgeon on-call be called regarding the findings once the workup is completed. Diagnosis Primary Impression: Bilateral pulmonary infiltrates on chest x-ray Additional Impression: Postoperative pain Admitting Information Admitting Physician Requests: Admit Tracy Parra MD Nov 27, 2017 06:43
--- NOTE | 2017-11-27 06:53 | RADRPT ---
EXAM DATE/TIME: 11/27/2017 06:31 [facility] COMPARISON: CHEST SINGLE AP, June 02, 2017, 4:55. INDICATIONS : Shortness of breath. MEDICAL HISTORY : Hypertension. Diabetes mellitus type 2. Peripheral vascular disease. SURGICAL HISTORY : Coronary artery stent. ENCOUNTER: Initial ACUITY: 1 day PAIN SCORE: 0/10 LOCATION: Bilateral chest FINDINGS: There are patchy infiltrates in the left mid and lower lung and in the lateral right lower lung. The heart is enlarged, stable from prior. Both hemidiaphragms remain multiple. CONCLUSION: Patchy infiltrates in both lower lungs, left greater than right. Jones Candelario MD on November 27, 2017 at 6:51 Board Certified Radiologist. This report was verified electronically.
[2017-11-27 07:39] LABS: AUTOMATED NEUTROPHIL # 7.4 TH/MM3 (1.8-7.7); BASOPHIL % 0.2 % (0.0-2.0); EOSINOPHIL # 0.1 TH/MM3 (0-0.4); HEMATOCRIT 35.9 % (39.0-51.0); HEMOGLOBIN 12.5 GM/DL (13.0-17.0); LYMPH % 22.2 % (9.0-44.0); LYMPHOCYTE # 2.4 TH/MM3 (1.0-4.8); MEAN CELL VOLUME 91.2 FL (80.0-100.0); MEAN CORPUSCULAR HEMOGLOBIN 31.8 PG (27.0-34.0); MEAN CORPUSCULAR HGB CONC 34.9 % (32.0-36.0); MEAN PLATELET VOLUME 9.4 FL (7.0-11.0); MONO % 9.6 % (0.0-8.0); MONOCYTE # 1.1 TH/MM3 (0-0.9); PLATELET COUNT 185 TH/MM3 (150-450); RED BLOOD COUNT 3.93 MIL/MM3 (4.50-5.90); RED CELL DISTRIBUTION WIDTH 13.8 % (11.6-17.2)
[2017-11-27 07:48] LABS: PROTHROMBIN TIME - PATIENT 10.1 SEC (9.8-11.6)
[2017-11-27] MEDS ORDERED: cefTRIAXone INJ 1,000 MG in SODIUM CHLORIDE 0.9% INJ 100 ML IV ONE ×2 (08:00→12:00)
[2017-11-27] MEDS ORDERED: SODIUM CHLOR 0.9% 1000 ML INJ 1,000 ML IV SCH (08:00)
[2017-11-27] MEDS ORDERED: AZITHROMYCIN INJ 500 MG in SODIUM CHLOR 0.9% 250 ML INJ 250 ML IV ONE (09:00)
[2017-11-27 09:17] LABS: ALBUMIN 2.7 GM/DL (3.4-5.0); ALT (GPT) 12 U/L (12-78); AST (GOT) 19 U/L (15-37); BICARBONATE 23.5 MEQ/L (21.0-32.0); BLOOD UREA NITROGEN 25 MG/DL (7-18); CHLORIDE 109 MEQ/L (98-107); GLOMERULAR FILTRATION RATE 53 ML/MIN (>89); GLUCOSE,RANDOM 83 MG/DL (74-106); MAGNESIUM 1.5 MG/DL (1.5-2.5); SODIUM (NA) 141 MEQ/L (136-145)
[2017-11-27 09:20] LABS: ALKALINE PHOSPHATASE 56 U/L (45-117); TOTAL BILIRUBIN ADULT 0.3 MG/DL (0.2-1.0); TOTAL PROTEIN 6.2 GM/DL (6.4-8.2); TROPONIN I 0.04 NG/ML (0.02-0.05)
--- NOTE | 2017-11-27 10:56 | RADRPT ---
EXAM DATE/TIME: 11/27/2017 09:31 [facility] COMPARISON: No previous studies available for comparison. INDICATIONS : Neck pain, left ear pain, difficulty breathing. Two days post-op for cervical fusion. IV CONTRAST: 70 cc Omnipaque 350 (iohexol) IV RADIATION DOSE: 17.59 CTDIvol (mGy) MEDICAL HISTORY : Cardiovascular disease. Hypertension. Diabetes mellitus type 2. SURGICAL HISTORY : Fusion, cervical. ENCOUNTER: Initial ACUITY: 1 day PAIN SCALE: 8/10 LOCATION: Bilateral neck TECHNIQUE: Volumetric scanning of the neck was performed. Using automated exposure control and adjustment of th e mA and/or kV according to patient size, radiation dose was kept as low as reasonably achievable to obtain optimal diagnostic quality images. DICOM format image data is available electronically for r eview and comparison. FINDINGS: Patient is status post anterior cervical fusion with some air in the operative site on the left. Jeremías y minimal induration is seen without hematoma. True vocal cords are unremarkable. Nasopharynx and o ropharynx unremarkable. I don't see an etiology for the left ear pain. This can be referred pain from the level of the true vocal cords. Review of bone windows reveals degenerative changes in the cervical spine with postop anterior cervic al fusion at C4-C5. CONCLUSION: Post surgical changes, without hematoma. Nader Moffett MD FACR on November 27, 2017 at 10:52 Board Certified Radiologist. This report was verified electronically.
--- NOTE | 2017-11-27 11:07 | PD ---
Physical Exam Narrative Patient signed out to me by Dr. Parra. Please see her documentation for complete details. Briefly, patient is a 77-year-old male who recently had cervical spinal fusion performed. He comes in complaining of pain to his neck as well as shortness of breath. Exam shows the patient resting comfortably, in no respiratory distress, oxygen saturation is 97% on 2 L. Data Data Last Documented VS Vital Signs Date Time Temp Pulse Resp B/P (MAP) Pulse Ox O2 Delivery O2 Flow Rate FiO2 11/27/17 07:18 85 14 91/51 (64) 96 Nasal Cannula 2.00 11/27/17 05:20 97.8 Orders Orders Electrocardiogram (11/27/17 05:55) Complete Blood Count With Diff (11/27/17 05:55) Comprehensive Metabolic Panel (11/27/17 05:55) Creatine Kinase (Cpk) (11/27/17 05:55) Ckmb (Isoenzyme) Profile (11/27/17 05:55) Troponin I (11/27/17 05:55) B-Type Natriuretic Peptide (11/27/17 05:55) Prothrombin Time / Inr (Pt) (11/27/17 05:55) Act Partial Throm Time (Ptt) (11/27/17 05:55) Magnesium (Mg) (11/27/17 05:55) Chest, Single Ap (11/27/17 05:55) Iv Access Insert/Monitor (11/27/17 05:55) Ecg Monitoring (11/27/17 05:55) Oximetry (11/27/17 05:55) Morphine Inj (Morphine Inj) (11/27/17 06:00) Ondansetron Inj (Zofran Inj) (11/27/17 06:00) Blood Culture (11/27/17 06:59) Lactic Acid Sepsis Protocol (11/27/17 06:59) Ct Soft Tiss Neck W Iv Cont (11/27/17 07:13) Sodium Chlor 0.9% 1000 Ml Inj (Ns 1000 M (11/27/17 08:00) Ceftriaxone Inj (Rocephin Inj) (11/27/17 08:00) Azithromycin Inj (Zithromax Inj) (11/27/17 09:00) CKMB (11/27/17 08:30) CKMB% (11/27/17 08:30) Iohexol 350 Inj (Omnipaque 350 Inj) (11/27/17 05:15) Morphine Inj (Morphine Inj) (11/27/17 11:15) Labs Laboratory Tests Test 11/27/17 06:15 11/27/17 07:15 11/27/17 08:30 White Blood Count 11.0 TH/MM3 Red Blood Count 3.93 MIL/MM3 Hemoglobin 12.5 GM/DL Hematocrit 35.9 % Mean Corpuscular Volume 91.2 FL Mean Corpuscular Hemoglobin 31.8 PG Mean Corpuscular Hemoglobin Concent 34.9 % Red Cell Distribution Width 13.8 % Platelet Count 185 TH/MM3 Mean Platelet Volume 9.4 FL Neutrophils (%) (Auto) 67.0 % Lymphocytes (%) (Auto) 22.2 % Monocytes (%) (Auto) 9.6 % Eosinophils (%) (Auto) 1.0 % Basophils (%) (Auto) 0.2 % Neutrophils # (Auto) 7.4 TH/MM3 Lymphocytes # (Auto) 2.4 TH/MM3 Monocytes # (Auto) 1.1 TH/MM3 Eosinophils # (Auto) 0.1 TH/MM3 Basophils # (Auto) 0.0 TH/MM3 CBC Comment DIFF FINAL Differential Comment Prothrombin Time 10.1 SEC Prothromb Time International Ratio 1.0 RATIO Activated Partial Thromboplast Time 26.2 SEC B-Type Natriuretic Peptide 147 PG/ML Lactic Acid Level 0.8 mmol/L Blood Urea Nitrogen 25 MG/DL Creatinine 1.30 MG/DL Random Glucose 83 MG/DL Total Protein 6.2 GM/DL Albumin 2.7 GM/DL Calcium Level 8.0 MG/DL Magnesium Level 1.5 MG/DL Alkaline Phosphatase 56 U/L Aspartate Amino Transf (AST/SGOT) 19 U/L Alanine Aminotransferase (ALT/SGPT) 12 U/L Total Bilirubin 0.3 MG/DL Sodium Level 141 MEQ/L Potassium Level 4.2 MEQ/L Chloride Level 109 MEQ/L Carbon Dioxide Level 23.5 MEQ/L Anion Gap 9 MEQ/L Estimat Glomerular Filtration Rate 53 ML/MIN Total Creatine Kinase 138 U/L Creatine Kinase MB 2.4 NG/ML Troponin I 0.04 NG/ML [facility] Supervised Visit with SERENA: No Narrative Course CT of the neck performed shows no hematoma, no acute abnormalities. X-ray shows bilateral pulmonary infiltrates. Patient was given pain medicine as well as antibiotics. He will be admitted for further management. Last [address] 11/27/17 0713 Signed Impressions: Service Date/Time: Monday, November 27, 2017 09:31 - CONCLUSION: Post surgical changes, without hematoma. Nader Moffett MD FACR Chest X-Ray 11/27/17 0555 Signed Impressions: Service Date/Time: Monday, November 27, 2017 06:31 - CONCLUSION: Patchy infiltrates in both lower lungs, left greater than right. Jones Candelario MD Diagnosis Primary Impression: Bilateral pulmonary infiltrates on chest x-ray Additional Impression: Postoperative pain Admitting Information Admitting Physician Requests: Admit Nara Gonzalez MD Nov 27, 2017 11:07
[2017-11-27] MEDS ORDERED: NALOXONE HCL 0.4 MG/ML AMP IV PUSH PRN (11:30)
[2017-11-27] MEDS ORDERED: ACETAMINOPHEN 325 MG TAB PO PRN (11:30)
[2017-11-27] MEDS ORDERED: BISACODYL 10 MG SUPP RECTAL PRN (11:30)
[2017-11-27] MEDS ORDERED: LACTULOSE SYRUP 20 GM/30 ML CUP PO PRN (11:30)
[2017-11-27] MEDS ORDERED: SODIUM CHLORIDE 0.9% FLUSH 10 ML FLUSH IV FLUSH PRN (11:30)
[2017-11-27] MEDS ORDERED: SENNOSIDES 8.6 MG TAB PO PRN (11:30)
--- NOTE | 2017-11-27 11:49 | HHI.HP ---
[facility] Jackson Alberts DO Admission Diagnosis bilateral pneumonia Diagnoses: Travel History International Travel<30 Days: No Contact w/Intl Traveler <30 Da: No Traveled to Known Affected Are: No Past Family Social History Allergies: Coded Allergies: No Known Allergies (Verified Adverse Reaction, Unknown, 11/27/17) Physical Exam Vital Signs Vital Signs Date Time Temp Pulse Resp B/P (MAP) Pulse Ox O2 Delivery O2 Flow Rate FiO2 11/27/17 07:18 85 14 91/51 (64) 96 Nasal Cannula 2.00 11/27/17 06:46 98 Nasal Cannula 2.00 11/27/17 06:40 18 11/27/17 05:42 94 18 159/69 (99) 95 Room Air 11/27/17 05:20 97.8 92 32 133/63 (86) 97 Physical Exam GENERAL: This is a well-nourished, well-developed patient, in no apparent distress. SKIN: No rashes, ecchymoses or lesions. Cool and dry. HEAD: Atraumatic. Normocephalic. No temporal or scalp tenderness. EYES: Pupils equal round and reactive. Extraocular motions intact. No scleral icterus. No injection or drainage. ENT: Nose without bleeding, purulent drainage or septal hematoma. Throat without erythema, tonsillar hypertrophy or exudate. Uvula midline. Airway patent. NECK: Trachea midline. No JVD or lymphadenopathy. Supple, nontender, no meningeal signs. CARDIOVASCULAR: Regular rate and rhythm without murmurs, gallops, or rubs. RESPIRATORY: Clear to auscultation. Breath sounds equal bilaterally. No wheezes , rales, or rhonchi. GASTROINTESTINAL: Abdomen soft, non-tender, nondistended. No hepato-splenomegaly , or palpable masses. No guarding. MUSCULOSKELETAL: Extremities without clubbing, cyanosis, or edema. No joint tenderness, effusion, or edema noted. No calf tenderness. Negative Homans sign bilaterally. NEUROLOGICAL: Awake and alert. Cranial nerves II through XII intact. Motor and sensory grossly within normal limits. Five out of 5 muscle strength in all muscle groups. Normal speech. Laboratory Laboratory Tests Test 11/27/17 06:15 11/27/17 07:15 11/27/17 08:30 White Blood Count 11.0 Red Blood Count 3.93 Hemoglobin 12.5 Hematocrit 35.9 Mean Corpuscular Volume 91.2 Mean Corpuscular Hemoglobin 31.8 Mean Corpuscular Hemoglobin Concent 34.9 Red Cell Distribution Width 13.8 Platelet Count 185 Mean Platelet Volume 9.4 Neutrophils (%) (Auto) 67.0 Lymphocytes (%) (Auto) 22.2 Monocytes (%) (Auto) 9.6 Eosinophils (%) (Auto) 1.0 Basophils (%) (Auto) 0.2 Neutrophils # (Auto) 7.4 Lymphocytes # (Auto) 2.4 Monocytes # (Auto) 1.1 Eosinophils # (Auto) 0.1 Basophils # (Auto) 0.0 CBC Comment DIFF FINAL Differential Comment Prothrombin Time 10.1 Prothromb Time International Ratio 1.0 Activated Partial Thromboplast Time 26.2 B-Type Natriuretic Peptide 147 Lactic Acid Level 0.8 Blood Urea Nitrogen 25 Creatinine 1.30 Random Glucose 83 Total Protein 6.2 Albumin 2.7 Calcium Level 8.0 Magnesium Level 1.5 Alkaline Phosphatase 56 Aspartate Amino Transf (AST/SGOT) 19 Alanine Aminotransferase (ALT/SGPT) 12 Total Bilirubin 0.3 Sodium Level 141 Potassium Level 4.2 Chloride Level 109 Carbon Dioxide Level 23.5 Anion Gap 9 Estimat Glomerular Filtration Rate 53 Total Creatine Kinase 138 Creatine Kinase MB 2.4 Troponin I 0.04 Date/Time Source Procedure Growth Status 11/27/17 07:15 Blood Peripheral Aerobic Blood Culture Pending Received 11/27/17 07:15 Blood Peripheral Anaerobic Blood Culture Pending Received Result Diagram: 11/27/17 0615 11/27/17 0830 Caprini VTE Risk Assessment Caprini Risk Assessment Model Point Value = 1 Point Value = 2 Point Value = 3 Point Value = 5 Age 41-60 Minor surgery BMI > 25 kg/m2 Swollen legs Varicose veins or History of unexplained or recurrent spontaneous Oral contraceptives or hormone replacement Sepsis (< 1 month) Serious lung disease, including pneumonia (< 1 month) Abnormal pulmonary function Acute myocardial infarction Congestive heart failure (< 1 month) History of inflammatory bowel disease Medical patient at bed rest Age 61-74 Arthroscopic surgery Major open surgery (> 45 min) Laparoscopic surgery (> 45 min) Malignancy Confined to bed (> 72 hours) Immobilizing plaster cast Central venous access Age >= 75 History of VTE Family history of VTE Factor V Leiden Prothrombin [id number] Lupus anticoagulant Anticardiolipin antibodies Elevated serum homocysteine Heparin-induced thrombocytopenia Other congenital or acquired thrombophilia Stroke (< 1 month) Elective arthroplasty Hip, pelvis, or leg fracture Acute spinal cord injury (< 1 month) Prophylaxis Regimen Total Risk Factor Score Risk Level Prophylaxis Regimen 0-1 Low Early ambulation 2 Moderate Order ONE of the following: *Sequential Compression Device (SCD) *Heparin 5000 units SQ BID 3-4 Higher Order ONE of the following medications: *Heparin 5000 units SQ TID *Enoxaparin/Lovenox 40 mg SQ daily (WT < 150 kg, CrCl > 30 mL/min) *Enoxaparin/Lovenox 30 mg SQ daily (WT < 150 kg, CrCl > 10-29 mL/min) *Enoxaparin/Lovenox 30 mg SQ BID (WT < 150 kg, CrCl > 30 mL/min) AND/OR *Sequential Compression Device (SCD) 5 or more Highest Order ONE of the following medications: *Heparin 5000 units SQ TID (Preferred with Epidurals) *Enoxaparin/Lovenox 40 mg SQ daily (WT < 150 kg, CrCl > 30 mL/min) *Enoxaparin/Lovenox 30 mg SQ daily (WT < 150 kg, CrCl > 10-29 mL/min) *Enoxaparin/Lovenox 30 mg SQ BID (WT < 150 kg, CrCl > 30 mL/min) AND *Sequential Compression Device (SCD) Scottie Cisneros DO Nov 27, 2017 11:49
[2017-11-27] MEDS: SODIUM CHLOR 0.9% 1000 ML INJ 1,000 ML IV SCH ×2 (12:05→23:31)
--- NOTE | 2017-11-27 12:51 | RADRPT ---
EXAM DATE/TIME: 11/27/2017 12:32 [place] COMPARISON: No previous studies available for comparison. INDICATIONS : Shortness of breath since surgery Saturday. IV CONTRAST: 60 cc Omnipaque 350 (iohexol) IV RADIATION DOSE: 26.95 CTDIvol (mGy) MEDICAL HISTORY : Cardiovascular disease. Hypertension. Diabetes mellitus type 2. SURGICAL HISTORY : Appendectomy. ENCOUNTER: Initial ACUITY: 1 day PAIN SCALE: 0/10 LOCATION: chest TECHNIQUE: Volumetric scanning of the chest was performed using a pulmonary embolism protocol MIP images were re constructed. Using automated exposure control and adjustment of the mA and/or kV according to patien t size, radiation dose was kept as low as reasonably achievable to obtain optimal diagnostic quality images. DICOM format image data is available electronically for review and comparison. Follow-up recommendations for detected pulmonary nodules are based at a minimum on nodule size and pa tient risk factors according to Fleischner Society Guidelines. FINDINGS: PULMONARY ARTERIES: No filling defects are seen in the pulmonary arteries through the segmental level. LUNGS: There are interstitial infiltrates in both lung crawley which appear to be more pronounced in the lung bases bilaterally. PLEURAE: Mild pleural thickening in both lung bases. No definite pleural effusions. MEDIASTINUM: There is good visualization of the great vessels of the middle mediastinum. No evidence of mediastin al or hilar adenopathy/mass. MUSCULOSKELETAL: Within normal limits for patient age. MISCELLANEOUS: The visualized upper abdominal organs demonstrate no acute abnormality. CONCLUSION: 1. No evidence of pulmonary emboli. 2. Bilateral interstitial infiltrates predominantly in the lung bases bilaterally. Adryan Alvares MD on November 27, 2017 at 12:48 Board Certified Radiologist. This report was verified electronically.
[2017-11-27] MEDS: MAGNESIUM SULFATE 1 GM PREMIX 100 ML IV SCH ×2 (15:21→16:18)
--- NOTE | 2017-11-27 16:18 | HHI.NSPN ---
(Lenka Malcolm) Note Status Status: Progress Note (Lenka Malcolm) Status: Progress Note (Timmy Campos MD) Interval History Interval History Mr. Dodge is a 77 year old male who recently underwent anterior cervical fusion for spinal stenosis with Dr. Vallecillo on 11/25/17. The patient was discharged home yesterday as he was doing very well. He states he was feeling well, had minimal pain and was eating well. This morning he developed shortness of breath, cough and sputum production that was yellow in color. He has had increased difficulty swallowing. A CT of the soft tissue of his neck was obtained which showed stable postoperative changes, air in the operative site on the left, without hematoma appreciated. He denies any pain or paresthesias in his upper extremities, focal weakness, bowel or bladder incontinence. His CXR shows bilateral infiltrates. (Lenka Malcolm) Labs, Micro, & Vital Signs Results Date Time Temp Pulse Resp B/P (MAP) Pulse Ox O2 Delivery O2 Flow Rate FiO2 11/27/17 15:49 (73) Nasal Cannula 2.00 11/27/17 12:06 82 20 115/53 (73) 98 Nasal Cannula 2.00 11/27/17 07:18 85 14 91/51 (64) 96 Nasal Cannula 2.00 11/27/17 06:46 98 Nasal Cannula 2.00 11/27/17 06:40 18 11/27/17 05:42 94 18 159/69 (99) 95 Room Air 11/27/17 05:20 97.8 92 32 133/63 (86) 97 11/28/17 07:00 Intake Total 1590 ml Balance 1590 ml Constitutional Vital Signs Date Time Temp Pulse Resp B/P (MAP) Pulse Ox O2 Delivery O2 Flow Rate FiO2 11/27/17 15:49 (73) Nasal Cannula 2.00 11/27/17 12:06 82 20 115/53 (73) 98 Nasal Cannula 2.00 11/27/17 07:18 85 14 91/51 (64) 96 Nasal Cannula 2.00 11/27/17 06:46 98 Nasal Cannula 2.00 11/27/17 06:40 18 11/27/17 05:42 94 18 159/69 (99) 95 Room Air 11/27/17 05:20 97.8 92 32 133/63 (86) 97 11/28/17 07:00 Intake Total 1590 ml Balance 1590 ml (Lenka Malcolm) Review of Systems Respiratory: COMPLAINS OF: Cough, Sputum production Musculoskeletal: COMPLAINS OF: Stiffness, Neck pain Neurologic: COMPLAINS OF: Headache, DENIES: Localized weakness (Lenka Malcolm) Physical Exam General: Well nourished male, in no acute distress, sitting in chair attempting to eat lunch HEENT: normocephalic atraumatic. nonicteric sclera. Neck: immobilized by [place] collar. Surgical wound with Optifoam dressing in place. Motor: moves all major muscle groups of both upper and lower extremities well Neurologic Exam: Awake, alert, oriented. Speech is fluent. Conversing well. CN : pupils equal, facial motor symmetric. Heart: Regular rate and rhythm Lungs: clear Skin: warm, dry (Lenka Malcolm) Medications Current Medications Current Medications Medications (Trade) Dose Ordered Sig/Naman Route PRN Reason Start Time Stop Time Status Last Admin Dose Admin Sodium Chloride 1,000 ml @ 100 mls/hr Q10H IV 11/27/17 11:18 11/27/17 12:05 Sodium Chloride (NS Flush) 2 ml UNSCH PRN IV FLUSH FLUSH AFTER USING IV ACCESS 11/27/17 11:30 Sodium Chloride (NS Flush) 2 ml BID IV FLUSH 11/27/17 21:00 Acetaminophen (Tylenol) 650 mg Q4H PRN PO Headache, fever, pain 1-4 11/27/17 11:30 Naloxone HCl (Narcan Inj) 0.4 mg UNSCH PRN IV PUSH SEE LABEL COMMENTS 11/27/17 11:30 Magnesium Hydroxide (Milk Of Magnesia Liq) 30 ml Q12H PRN PO Mild constipation 11/27/17 11:30 Sennosides (Senokot) 17.2 mg Q12H PRN PO Moderate constipation 11/27/17 11:30 Bisacodyl (Dulcolax Supp) 10 mg DAILY PRN RECTAL SEVERE CONSITIPATION 11/27/17 11:30 Lactulose (Lactulose Liq) 30 ml DAILY PRN PO SEVERE CONSITIPATION 11/27/17 11:30 Ceftriaxone Sodium 2000 mg/ Sodium Chloride 100 ml @ 200 mls/hr Q24H IV 11/28/17 12:00 Levofloxacin/ Dextrose 150 ml @ 100 mls/hr Q24H IV 11/28/17 08:00 Magnesium Sulfate/ Dextrose 100 ml @ 100 mls/hr Q1H IV 11/27/17 15:00 11/27/17 16:59 11/27/17 15:21 (Lenka Malcolm) Medical Decision Making MDM Remarks Last Impressions Neck CT 11/27/17 0713 Signed Impressions: Service Date/Time: Monday, November 27, 2017 09:31 - CONCLUSION: Post surgical changes, without hematoma. Nader Moffett MD FACR Chest X-Ray 11/27/17 0555 Signed Impressions: Service Date/Time: Monday, November 27, 2017 06:31 - CONCLUSION: Patchy infiltrates in both lower lungs, left greater than right. Jones Candelario MD CT Angiography 11/27/17 0000 Signed Impressions: Service Date/Time: Monday, November 27, 2017 12:32 - CONCLUSION: 1. No evidence of pulmonary emboli. 2. Bilateral interstitial infiltrates predominantly in the lung bases bilaterally. Adryan Alvares MD (Lenka Malcolm) Plan Plan Remarks 77 y/o male s/p ACDF by Dr. Vallecillo 11/25/17, CT Soft tissue without hematoma, stable post-op changes Bilateral pneumonia (Lenka Malcolm) Attending Statement cont medical management of pneumonia maintain cervical collar (Lenka Malcolm) The exam, history, and the medical decision-making described in the above note were completed with the assistance of the mid-level provider. I reviewed and agree with the findings presented. I attest that I had a [id number] encounter with the patient on the same day, and personally performed and documented my assessment and findings in the medical record. (Timmy Campos MD) Lenka Malcolm Nov 27, 2017 16:18 Timmy Campos MD Nov 27, 2017 16:58
--- NOTE | 2017-11-27 20:18 | EKG ---
Date Performed: 11/27/2017 Time Performed: 06:37:51 PTAGE: 77 years EKG: Sinus rhythm POSSIBLE ANTERIOR MYOCARDIAL INFARCTION ABNORMAL ECG PREVIOUS TRACING : 06/02/2017 06.11 Since the previous tracing, no significant change noted DOCTOR: Derek May Interpretating Date/Time 11/27/2017 20:16:55
--- NOTE | 2017-11-27 21:11 | HHI.HP ---
HPI Service [facility] Primary Care Physician Jackson Alberts DO Admission Diagnosis bilateral pneumonia Diagnoses: Chief Complaint: Difficulty breathing,, left-sided facial pain. Travel History International Travel<30 Days: No Contact w/Intl Traveler <30 Da: No Traveled to Known Affected Are: No Sepsis Criteria SIRS Criteria (2 or more): Heart rate over 90, RR > 20 or PaCO2 < 32 Sepsis Criteria (SIRS+source): Infect source susp/known Criteria Outcome: Meets SIRS criteria, Meets sepsis criteria History of Present Illness Mr. Dodge is a pleasant 77-year-old male with a history of CAD status post stents, hypercholesterolemia, hypothyroidism who presented to the emergency department on 11/27/2017 due to sudden onset of difficulty breathing and left facial pain. Patient underwent ACDF surgery by Dr. Vallecillo (Neurosurgery) for cervical spinal stenosis on 11/25/2017. Patient was discharged on 11/26/2017. I evaluated patient on 11/26/2017 as well prior to discharging patient. Patient did not have any fever or chills or dyspnea. However, around 3 or 4AM, per patient's , he started having significant difficulty breathing, and sputum production as well. He did not have any fever. Denies any chest pain, abdominal pain. No changes in bowel or bladder habits. Incidentally, he recently underwent a skin biopsy of his left ear and he was told that skin biopsy is consistent with malignancy - however, we do not know if it is melanoma. He complained of left facial pain prior to coming to the hospital as well. At the time of this interview, he is somewhat somnolent but answers questions. He reports difficulty breathing. Currently on nasal cannula. Review of Systems Except as stated in HPI: all other systems reviewed are Neg Past Family Social History Past Medical History Psoriasis, CAD status post stent placement 3 years ago, diabetes mellitus, hyperlipidemia, hypertension, BPH Past Surgical History ACDF for spinal stenosis of the cervical spine 11/25/2017. Appendectomy. Reported Medications Active Dok (Docusate Sodium) 100 Mg Cap 100 Mg PO BID Reported Tramadol (Tramadol HCl) 50 Mg Tab 50 Mg PO Q4H PRN Neurontin (Gabapentin) 800 Mg Tab 800 Mg PO BID Levothyroxine (Levothyroxine Sodium) 50 Mcg Tab 50 Mcg PO DAILY Fluoxetine (Fluoxetine HCl) 10 Mg Tab 1 Tab PO DAILY Otezla (Apremilast) 30 Mg Tab Pantoprazole (Pantoprazole Sodium) 40 Mg Tab 40 Mg PO DAILY Nitroglycerin SL (Nitroglycerin) 0.4 Mg Subl 0.4 Mg SL DIRECTED PRN ONE TABLET UNDER THE TONGUE NEEDED FOR CHEST PAIN, MAY REPEAT EVERY FIVE MINUTES FOR A TOTAL OF 3 DOSES OR CALL 911 IF NO RELIEF Potassium Chloride ER (Potassium Chloride) 10 Meq Tab 10 Meq PO DAILY Tamsulosin (Tamsulosin HCl) 0.4 Mg Cap 0.4 Mg PO HS Allopurinol 100 Mg Tab 100 Mg PO DAILY Furosemide 20 Mg Tab 20 Mg PO DAILY Finasteride 5 Mg Tab 5 Mg PO DAILY Do not crush. Metformin (Metformin HCl) 500 Mg Tab 500 Mg PO DAILY With a meal Lisinopril 20 Mg Tab 20 Mg PO DAILY Allergies: Coded Allergies: No Known Allergies (Verified Adverse Reaction, Unknown, 11/27/17) Family History Brother had lung cancer, mother when she was 54 years old from kidney failure, father had lung cancer Social History Patient denies using tobacco or alcohol. Physical Exam Vital Signs Vital Signs Date Time Temp Pulse Resp B/P (MAP) Pulse Ox O2 Delivery O2 Flow Rate FiO2 11/27/17 18:00 77 11/27/17 17:30 99 Nasal Cannula 3.00 11/27/17 17:00 81 19 133/61 (85) 98 11/27/17 16:30 98.8 83 24 165/71 (102) 97 11/27/17 15:49 (73) Nasal Cannula 2.00 11/27/17 12:06 82 20 115/53 (73) 98 Nasal Cannula 2.00 11/27/17 07:18 85 14 91/51 (64) 96 Nasal Cannula 2.00 11/27/17 06:46 98 Nasal Cannula 2.00 11/27/17 06:40 18 11/27/17 05:42 94 18 159/69 (99) 95 Room Air 11/27/17 05:20 97.8 92 32 133/63 (86) 97 Physical Exam GENERAL: This is a well-nourished, well-developed patient, NAD. However, he is somewhat somnolent. Answers questions. SKIN: No rashes, ecchymoses or lesions. Warm and dry. HEAD: Atraumatic. Normocephalic. No temporal or scalp tenderness. EYES: Pupils equal round and reactive. No injection or drainage. ENT: Nose without bleeding, purulent drainage or septal hematoma. Airway patent. NECK: Trachea midline. No lymphadenopathy. Supple, nontender, no meningeal signs. CARDIOVASCULAR: Regular rate and rhythm without murmurs, gallops, or rubs. No JVD. RESPIRATORY: Tachypneic, moderate air entry. Bibasilar crackles. No wheezes, rales, or rhonchi. No accessory muscle use GASTROINTESTINAL: Abdomen soft, non-tender, nondistended. No guarding. MUSCULOSKELETAL: Extremities without clubbing, cyanosis, or edema. NEUROLOGICAL: Somewhat drowsy. Cranial nerves II through XII intact. No focal neurological deficits. Normal speech. Laboratory Laboratory Tests Test 11/27/17 06:15 11/27/17 07:15 11/27/17 08:30 White Blood Count 11.0 Red Blood Count 3.93 Hemoglobin 12.5 Hematocrit 35.9 Mean Corpuscular Volume 91.2 Mean Corpuscular Hemoglobin 31.8 Mean Corpuscular Hemoglobin Concent 34.9 Red Cell Distribution Width 13.8 Platelet Count 185 Mean Platelet Volume 9.4 Neutrophils (%) (Auto) 67.0 Lymphocytes (%) (Auto) 22.2 Monocytes (%) (Auto) 9.6 Eosinophils (%) (Auto) 1.0 Basophils (%) (Auto) 0.2 Neutrophils # (Auto) 7.4 Lymphocytes # (Auto) 2.4 Monocytes # (Auto) 1.1 Eosinophils # (Auto) 0.1 Basophils # (Auto) 0.0 CBC Comment DIFF FINAL Differential Comment Prothrombin Time 10.1 Prothromb Time International Ratio 1.0 Activated Partial Thromboplast Time 26.2 B-Type Natriuretic Peptide 147 Lactic Acid Level 0.8 Blood Urea Nitrogen 25 Creatinine 1.30 Random Glucose 83 Total Protein 6.2 Albumin 2.7 Calcium Level 8.0 Magnesium Level 1.5 Alkaline Phosphatase 56 Aspartate Amino Transf (AST/SGOT) 19 Alanine Aminotransferase (ALT/SGPT) 12 Total Bilirubin 0.3 Sodium Level 141 Potassium Level 4.2 Chloride Level 109 Carbon Dioxide Level 23.5 Anion Gap 9 Estimat Glomerular Filtration Rate 53 Total Creatine Kinase 138 Creatine Kinase MB 2.4 Troponin I 0.04 Date/Time Source Procedure Growth Status 11/27/17 07:15 Blood Peripheral Aerobic Blood Culture Pending Received 11/27/17 07:15 Blood Peripheral Anaerobic Blood Culture Pending Received Result Diagram: 11/27/17 0615 11/27/17 0830 Imaging Last Impressions Neck CT 11/27/17 0713 Signed Impressions: Service Date/Time: Monday, November 27, 2017 09:31 - CONCLUSION: Post surgical changes, without hematoma. Nader Moffett MD FACR Chest X-Ray 11/27/17 0555 Signed Impressions: Service Date/Time: Monday, November 27, 2017 06:31 - CONCLUSION: Patchy infiltrates in both lower lungs, left greater than right. Jones Candelario MD CT Angiography 11/27/17 0000 Signed Impressions: Service Date/Time: Monday, November 27, 2017 12:32 - CONCLUSION: 1. No evidence of pulmonary emboli. 2. Bilateral interstitial infiltrates predominantly in the lung bases bilaterally. Adryan Alvares MD Caprini VTE Risk Assessment Caprini VTE Risk Assessment: Mod/High Risk (score >= 2) Caprini Risk Assessment Model Point Value = 1 Point Value = 2 Point Value = 3 Point Value = 5 Age 41-60 Minor surgery BMI > 25 kg/m2 Swollen legs Varicose veins or History of unexplained or recurrent spontaneous Oral contraceptives or hormone replacement Sepsis (< 1 month) Serious lung disease, including pneumonia (< 1 month) Abnormal pulmonary function Acute myocardial infarction Congestive heart failure (< 1 month) History of inflammatory bowel disease Medical patient at bed rest Age 61-74 Arthroscopic surgery Major open surgery (> 45 min) Laparoscopic surgery (> 45 min) Malignancy Confined to bed (> 72 hours) Immobilizing plaster cast Central venous access Age >= 75 History of VTE Family history of VTE Factor V Leiden Prothrombin [id number] Lupus anticoagulant Anticardiolipin antibodies Elevated serum homocysteine Heparin-induced thrombocytopenia Other congenital or acquired thrombophilia Stroke (< 1 month) Elective arthroplasty Hip, pelvis, or leg fracture Acute spinal cord injury (< 1 month) Prophylaxis Regimen Total Risk Factor Score Risk Level Prophylaxis Regimen 0-1 Low Early ambulation 2 Moderate Order ONE of the following: *Sequential Compression Device (SCD) *Heparin 5000 units SQ BID 3-4 Higher Order ONE of the following medications: *Heparin 5000 units SQ TID *Enoxaparin/Lovenox 40 mg SQ daily (WT < 150 kg, CrCl > 30 mL/min) *Enoxaparin/Lovenox 30 mg SQ daily (WT < 150 kg, CrCl > 10-29 mL/min) *Enoxaparin/Lovenox 30 mg SQ BID (WT < 150 kg, CrCl > 30 mL/min) AND/OR *Sequential Compression Device (SCD) 5 or more Highest Order ONE of the following medications: *Heparin 5000 units SQ TID (Preferred with Epidurals) *Enoxaparin/Lovenox 40 mg SQ daily (WT < 150 kg, CrCl > 30 mL/min) *Enoxaparin/Lovenox 30 mg SQ daily (WT < 150 kg, CrCl > 10-29 mL/min) *Enoxaparin/Lovenox 30 mg SQ BID (WT < 150 kg, CrCl > 30 mL/min) AND *Sequential Compression Device (SCD) Assessment and Plan Problem List: (1) Sepsis ICD Code: A41.9 - Sepsis, unspecified organism (2) Bilateral pulmonary infiltrates on chest x-ray ICD Code: R91.8 - Other nonspecific abnormal finding of lung field Status: Acute (3) Cervical spinal stenosis ICD Code: M48.02 - Spinal stenosis, cervical region Assessment and Plan Mr. Dodge is a pleasant 77 year old male with a history of CAD, DM and a recent ACDF surgery for cervical spinal stenosis who presented to the ED on 11/27 day after he was discharged form the hospital due to acute onset of dyspnea, cough. CXR, CT chest indicate bibasilar pneumonia. - Sepsis (Tachycardia, tachypnea, pneumonia). - Bilateral pneumonia - PSI score 109 (9.3% mortality, hospitalization recommended). - Patient's Wells score for PE is moderate. Due to sudden onset of symptoms, we obtained CT PE study as well. - CT PE study shows no PE but shows bibasilar infiltrates. Will obtain ABG. - Neck CT consistent with recent surgical changes. - Imaging studies reviewed by me. CXR and CT PE shows significant infiltrates L > R. - We will admit patient to ICU and thus we will cover with Ceftriaxone 2g Q24H and Levaquin 750mg Q24hrs. - Discussed with patient's family regarding code status - he will remain Full code for now. - Diabetes mellitus - CAD - Hyperlipidemia - Continue statin. Will start patient on sliding scale insulin. If needed, will consider long acting insulin. - Patient takes metformin at home. Will hold metformin in-patient. - Patient was on aspirin and plavix - took it for 3 years. Since stents were placed 3 years ago, no further need for DAPT. - Hypertension - Continue Lisinopril. Creatinine 1.30 appears to be baseline. - Spinal stenosis - recent ACDF. Will consult Neurosurgery since patient recently underwent surgery (11/25/2017). Patient is critically ill. Total time spent over 35 minutes. Full code. SCDs for now. If okay with neurosurgery, we can initiate heparin or Lovenox for DVT prophylaxis. Physician Certification 2 Midnight Certification Type: Admission for Inpatient Services Order for Inpatient Services The services are ordered in accordance with Medicare regulations or non- Medicare payer requirements, as applicable. In the case of services not specified as inpatient-only, they are appropriately provided as inpatient services in accordance with the 2-midnight benchmark. Estimated LOS (days): 3 days is the estimated time the patient will need to remain in the hospital, assuming treatment plan goals are met and no additional complications. Post-Hospital Plan: Scottie Vega DO Nov 27, 2017 21:11
[2017-11-27] MEDS ORDERED: GLUCAGON 1 MG/ML VIAL OTHER PRN (22:15)
[2017-11-27] MEDS ORDERED: DEXTROSE 50% IN WATER 50 ML VIAL(D50) IV PUSH PRN (22:15)
[2017-11-27] MEDS: ACETAMINOPHEN/HYDROcodone 325 MG/5 MG TAB PO PRN (23:21)
[2017-11-27] MEDS: SODIUM CHLORIDE 0.9% FLUSH 10 ML FLUSH IV FLUSH SCH (23:32)
[2017-11-28] VITALS (11 sets, daily range): BP systolic 126–178; BP diastolic 59–77; PULSE 63–98; RESP 14–26; TEMP 97.8–98.5; O2SAT 94–100
[2017-11-28] MEDS: LEVOTHYROXINE SODIUM 50 MCG TAB PO SCH (04:52)
[2017-11-28] MEDS: ACETAMINOPHEN/HYDROcodone 325 MG/5 MG TAB PO PRN ×2 (05:32→21:36)
[2017-11-28 06:27] LABS: AUTOMATED NEUTROPHIL # 5.6 TH/MM3 (1.8-7.7); BASOPHIL % 0.3 % (0.0-2.0); EOSINOPHIL # 0.3 TH/MM3 (0-0.4); EOSINOPHIL % 3.3 % (0.0-4.0); HEMATOCRIT 36.8 % (39.0-51.0); HEMOGLOBIN 12.2 GM/DL (13.0-17.0); MEAN CELL VOLUME 93.1 FL (80.0-100.0); MEAN CORPUSCULAR HGB CONC 33.3 % (32.0-36.0); MONO % 11.9 % (0.0-8.0); MONOCYTE # 1.1 TH/MM3 (0-0.9); NEUT % 62.5 % (16.0-70.0); PLATELET COUNT 175 TH/MM3 (150-450); RED BLOOD COUNT 3.95 MIL/MM3 (4.50-5.90)
[2017-11-28 06:46] LABS: BICARBONATE 25.5 MEQ/L (21.0-32.0); CALCIUM 8.5 MG/DL (8.5-10.1); CREATININE 1.27 MG/DL (0.60-1.30)
[2017-11-28] MEDS: SODIUM CHLOR 0.9% 1000 ML INJ 1,000 ML IV SCH ×3 (07:18→21:39)
--- NOTE | 2017-11-28 07:59 | PD.PN.STU ---
Subjective Remarks Here for follow-up of bilateral pneumonias s/p hospital stay for neurosurgery for cervical stenosis on 11/26. Patient states he's breathing better today and is feeling better. He noted he had "a lot of mucus" production upon awakening this morning. Denies fever/chills. Objective Vitals Vital Signs Date Time Temp Pulse Resp B/P (MAP) Pulse Ox O2 Delivery O2 Flow Rate FiO2 11/28/17 06:00 80 11/28/17 04:00 98.3 98 26 142/60 (87) 100 11/28/17 04:00 98 11/28/17 02:00 63 11/28/17 00:00 67 11/28/17 00:00 98.0 67 14 130/60 (83) 100 11/27/17 22:00 72 11/27/17 20:00 98.0 84 20 126/62 (83) 100 11/27/17 20:00 84 11/27/17 18:00 77 11/27/17 17:30 99 Nasal Cannula 3.00 11/27/17 17:00 81 19 133/61 (85) 98 11/27/17 16:30 98.8 83 24 165/71 (102) 97 11/27/17 15:49 (73) Nasal Cannula 2.00 11/27/17 12:06 82 20 115/53 (73) 98 Nasal Cannula 2.00 I/O 11/27/17 11/27/17 11/27/17 11/28/17 11/28/17 11/28/17 07:00 15:00 23:00 07:00 15:00 23:00 Intake Total 1350 ml 1047 ml 893 ml Output Total 0 ml 650 ml Balance 1350 ml 1047 ml 243 ml Intake Oral 240 ml 500 ml IV Total 1350 ml 807 ml 393 ml Output Urine Total 0 ml 650 ml Stool Total 0 ml 0 ml # Voids 1 5 # Bowel Movements 0 0 Result Diagram: 11/28/1751911/28/17519 Other Results Last Impressions Neck CT 11/27/17712 Signed Impressions: Service Date/Time: Monday, November 27, 2017 09:31 - CONCLUSION: Post surgical changes, without hematoma. Nader Moffett MD FACR Chest X-Ray 11/27/17 0555 Signed Impressions: Service Date/Time: Monday, November 27, 2017 06:31 - CONCLUSION: Patchy infiltrates in both lower lungs, left greater than right. Jones Candelario MD CT Angiography 11/27/17 0000 Signed Impressions: Service Date/Time: Monday, November 27, 2017 12:32 - CONCLUSION: 1. No evidence of pulmonary emboli. 2. Bilateral interstitial infiltrates predominantly in the lung bases bilaterally. Adryan Alvares MD Objective Remarks GENERAL: Alert, orientedx3, NAD, in neck brace, sitting comfortably in chair SKIN: Warm and dry. HEAD: Normocephalic. EYES: No scleral icterus. No injection or drainage. NECK: Supple, trachea midline. No JVD or lymphadenopathy. CARDIOVASCULAR: Regular rate and rhythm without murmurs, gallops, or rubs. RESPIRATORY: Slight crackles in right lung base, good air movement bilaterally GASTROINTESTINAL: Abdomen soft, non-tender, nondistended. MUSCULOSKELETAL: No cyanosis, or edema. BACK: Nontender without obvious deformity. No CVA tenderness. A/P Assessment and Plan Mr. Dodge is a pleasant 77 year old male with a history of CAD, DM and a recent ACDF surgery for cervical spinal stenosis who presented to the ED on due to onset of dyspnea and cough. - Sepsis (Tachycardia, tachypnea, pneumonia). - Bilateral pneumonia - CT shows bibasilar infiltrates, with no PE. ABG reveals elevated CO2. - Neck CT consistent with recent surgical changes. - CXR and CT PE shows significant infiltrates L > R. - Continue Ceftriaxone 2g Q24H and Levaquin 750mg Q24hrs pending blood cultures - Diabetes mellitus - Continue sliding scale insulin. If needed, will consider long acting insulin. - CAD -- Patient was on aspirin and plavix for 3 years. Guidelines suggest DAPT can be D/Bry after 30 months, D/C aspirin and plavix - Hyperlipidemia - Continue statin. - Hypertension - Continue Lisinopril. Creatinine 1.30 appears to be baseline. - Spinal stenosis - recent ACDF. Will consult Neurosurgery since patient recently underwent surgery (11/25/2017). Full code. SCDs for now. Awaiting neurosurgical clearance to initiate heparin or Lovenox for DVT prophylaxis. Discharge Planning D/C with greater symptom resolution and clearance from neurosurgery. Will Maldonado M3 Nov 28, 2017 07:59
--- NOTE | 2017-11-28 07:59 | HHI.PR ---
Subjective Remarks Follow-up for bilateral pneumonia. Patient is currently doing well. Sitting in chair. Currently on nasal cannula. No fever or chills. Objective Vitals Vital Signs Date Time Temp Pulse Resp B/P (MAP) Pulse Ox O2 Delivery O2 Flow Rate FiO2 11/28/17 06:00 80 11/28/17 04:00 98.3 98 26 142/60 (87) 100 11/28/17 04:00 98 11/28/17 02:00 63 11/28/17 00:00 67 11/28/17 00:00 98.0 67 14 130/60 (83) 100 11/27/17 22:00 72 11/27/17 20:00 98.0 84 20 126/62 (83) 100 11/27/17 20:00 84 11/27/17 18:00 77 11/27/17 17:30 99 Nasal Cannula 3.00 11/27/17 17:00 81 19 133/61 (85) 98 11/27/17 16:30 98.8 83 24 165/71 (102) 97 11/27/17 15:49 (73) Nasal Cannula 2.00 11/27/17 12:06 82 20 115/53 (73) 98 Nasal Cannula 2.00 I/O 11/27/17 11/27/17 11/27/17 11/28/17 11/28/17 11/28/17 07:00 15:00 23:00 07:00 15:00 23:00 Intake Total 1350 ml 1047 ml 893 ml Output Total 0 ml 650 ml Balance 1350 ml 1047 ml 243 ml Intake Oral 240 ml 500 ml IV Total 1350 ml 807 ml 393 ml Output Urine Total 0 ml 650 ml Stool Total 0 ml 0 ml # Voids 1 5 # Bowel Movements 0 0 Result Diagram: 11/28/17 0520 11/28/17 0520 Imaging Last Impressions Neck CT 11/27/17 0713 Signed Impressions: Service Date/Time: Monday, November 27, 2017 09:31 - CONCLUSION: Post surgical changes, without hematoma. Nader Moffett MD FACR Chest X-Ray 11/27/17 0555 Signed Impressions: Service Date/Time: Monday, November 27, 2017 06:31 - CONCLUSION: Patchy infiltrates in both lower lungs, left greater than right. Jones Candelario MD CT Angiography 11/27/17 0000 Signed Impressions: Service Date/Time: Monday, November 27, 2017 12:32 - CONCLUSION: 1. No evidence of pulmonary emboli. 2. Bilateral interstitial infiltrates predominantly in the lung bases bilaterally. Adryan Alvares MD Objective Remarks GENERAL: Alert, oriented 3, NAD. SKIN: Warm and dry. HEAD: Normocephalic. EYES: No scleral icterus. No injection or drainage. NECK: Supple, trachea midline. No JVD or lymphadenopathy. CARDIOVASCULAR: Regular rate and rhythm without murmurs, gallops, or rubs. RESPIRATORY: Breath sounds equal bilaterally. No accessory muscle use. Bibasilar crackles. GASTROINTESTINAL: Abdomen soft, non-tender, nondistended. MUSCULOSKELETAL: No cyanosis. 1+ lower extremity edema. BACK: Nontender without obvious deformity. No CVA tenderness. Procedures None A/P Problem List: (1) Sepsis ICD Code: A41.9 - Sepsis, unspecified organism (2) Bilateral pulmonary infiltrates on chest x-ray ICD Code: R91.8 - Other nonspecific abnormal finding of lung field Status: Acute (3) Cervical spinal stenosis ICD Code: M48.02 - Spinal stenosis, cervical region Assessment and Plan Mr. Dodge is a pleasant 77 year old male with a history of CAD, DM and a recent ACDF surgery for cervical spinal stenosis who presented to the ED on 11/27 day after he was discharged form the hospital due to acute onset of dyspnea, cough. CXR, CT chest indicate bibasilar pneumonia. - Sepsis (Tachycardia, tachypnea, pneumonia). - Bilateral pneumonia - PSI score 109 (9.3% mortality, hospitalization recommended). - Patient's Wells score for PE is moderate. Due to sudden onset of symptoms, we obtained CT PE study as well. - CT PE study shows no PE but shows bibasilar infiltrates. ABG reviewed. No hypercapnia. - Neck CT consistent with recent surgical changes. - Imaging studies reviewed by me on 11/27/2017. CXR and CT PE shows significant infiltrates L > R. - Continue IV Levaquin and Ceftriaxone today. Will likely switch to PO Levaquin tomorrow. - Diabetes mellitus - CAD - Hyperlipidemia - Re-start statin. Will start patient on sliding scale insulin. If needed, will consider long acting insulin. - Patient takes metformin at home. Will hold metformin in-patient. - Patient was on aspirin and plavix - took it for 3 years. Since stents were placed 3 years ago, no further need for DAPT. - Pt takes Lasix 20mg at home. Will start start Torsemide 10mg BID. - Hypertension - Continue Lisinopril. Creatinine around 1.30 appears to be baseline. - Spinal stenosis - recent ACDF. - Transfer to the floor. Full code. Will ask Neurosurgery if they are okay with Lovenox 30mg Qday for DVT prophylaxis. Scottie Cisneros DO Nov 28, 2017 7:59 am
[2017-11-28] MEDS: INSULIN ASPART SUPPLEMENTAL SCALE SQ SCH ×4 (08:00→21:37)
[2017-11-28] MEDS: FLUoxetine HCL 10 MG CAP PO SCH (08:40)
[2017-11-28] MEDS: PANTOPRAZOLE SOD 40 MG DELAYED RELEASE TAB PO SCH (08:41)
[2017-11-28] MEDS: FINASTERIDE 5 MG TAB PO SCH (08:41)
[2017-11-28] MEDS: FUROSEMIDE 20 MG TAB PO SCH (08:41)
[2017-11-28] MEDS: LISINOPRIL 20 MG TAB PO SCH (08:41)
[2017-11-28] MEDS: SODIUM CHLORIDE 0.9% FLUSH 10 ML FLUSH IV FLUSH SCH ×2 (08:42→21:00)
[2017-11-28] MEDS: LEVOFLOXACIN 750 MG PREMIX INJ 150 ML IV SCH (08:42)
[2017-11-28] MEDS ORDERED: cefTRIAXone INJ 2,000 MG in SODIUM CHLORIDE 0.9% INJ 100 ML IV SCH (12:00)
[2017-11-28] MEDS: ENOXAPARIN SODIUM 30 MG/0.3 ML SYRINGE SQ SCH (14:05)
--- NOTE | 2017-11-28 19:09 | HHI.NSPN ---
History Chief Complaint: Productive cough. Interval History Mr. Dodge is a 77 year old male who recently underwent anterior cervical fusion for spinal stenosis with Dr. Vallecillo on 11/25/17. The patient was discharged home yesterday as he was doing very well. He states he was feeling well, had minimal pain and was eating well. This morning he developed shortness of breath, cough and sputum production that was yellow in color. He has had increased difficulty swallowing. A CT of the soft tissue of his neck was obtained which showed stable postoperative changes, air in the operative site on the left, without hematoma appreciated. He denies any pain or paresthesias in his upper extremities, focal weakness, bowel or bladder incontinence. His CXR shows bilateral infiltrates. 11/28/17: Pt awake and alert. Sitting up in chair. Complains of productive cough. No chest pain. No radiculopathy in UEs. Denies weakness in UEs. Cervical collar intact. Review of Systems General: Negative for: fever, chills, insomnia Respiratory: Positive for: cough, sputum, Negative for: shortness of breath Cardiovascular: Negative for: chest pain, palpitations, orthopnea Gastrointestinal: Negative for: nausea, vomitting, diarrhea, constipation Exam Results Vital Signs Date Time Temp Pulse Resp B/P (MAP) Pulse Ox O2 Delivery O2 Flow Rate FiO2 11/28/17 18:33 98.1 90 20 178/77 (110) 96 11/28/17 09:08 Nasal Cannula 3.00 Intake and Output 11/28/17 11/28/17 11/29/17 08:00 16:00 00:00 Intake Total 500 ml Output Total 650 ml Balance -150 ml Physical Examination General: Well nourished male, in no acute distress, sitting in chair. HEENT: normocephalic atraumatic. nonicteric sclera. Neck: immobilized by [place] collar. Surgical wound with Optifoam dressing in place. Motor: moves all major muscle groups of both upper and lower extremities well Neurologic Exam: Awake, alert, oriented. Speech is fluent. Conversing well. CN : pupils equal, facial motor symmetric. Heart: Regular rate and rhythm Lungs: Wheezing bilaterally. Skin: Cervical incision clean and dry. No signs of infection New bandage placed. Lab, Micro, Other Results Last Impressions Neck CT 11/27/17 0713 Signed Impressions: Service Date/Time: Monday, November 27, 2017 09:31 - CONCLUSION: Post surgical changes, without hematoma. Nader Moffett MD FACR Chest X-Ray 11/27/17 0555 Signed Impressions: Service Date/Time: Monday, November 27, 2017 06:31 - CONCLUSION: Patchy infiltrates in both lower lungs, left greater than right. Jones Candelario MD CT Angiography 11/27/17 0000 Signed Impressions: Service Date/Time: Monday, November 27, 2017 12:32 - CONCLUSION: 1. No evidence of pulmonary emboli. 2. Bilateral interstitial infiltrates predominantly in the lung bases bilaterally. Adryan Alvares MD Laboratory Tests Test 11/28/17 00:51 11/28/17 05:20 Blood Gas Puncture Site RT RADIAL Blood Gas Patient Temperature 98.6 Blood Gas HCO3 25 mmol/L Blood Gas Base Excess 0.2 mmol/L Blood Gas Oxygen Saturation 96 % Arterial Blood pH 7.36 Arterial Blood Partial Pressure CO2 46 mmHg Arterial Blood Partial Pressure O2 116 mmHg Arterial Blood Oxygen Content 15.5 Vol % Arterial Blood Carboxyhemoglobin 0.8 % Arterial Blood Methemoglobin 1.1 % Blood Gas Hemoglobin 11.3 G/DL Oxygen Delivery Device NASAL CANNULA Blood Gas Liter Flow 3 L/M White Blood Count 9.0 TH/MM3 Red Blood Count 3.95 MIL/MM3 Hemoglobin 12.2 GM/DL Hematocrit 36.8 % Mean Corpuscular Volume 93.1 FL Mean Corpuscular Hemoglobin 31.0 PG Mean Corpuscular Hemoglobin Concent 33.3 % Red Cell Distribution Width 14.0 % Platelet Count 175 TH/MM3 Mean Platelet Volume 9.0 FL Neutrophils (%) (Auto) 62.5 % Lymphocytes (%) (Auto) 22.0 % Monocytes (%) (Auto) 11.9 % Eosinophils (%) (Auto) 3.3 % Basophils (%) (Auto) 0.3 % Neutrophils # (Auto) 5.6 TH/MM3 Lymphocytes # (Auto) 2.0 TH/MM3 Monocytes # (Auto) 1.1 TH/MM3 Eosinophils # (Auto) 0.3 TH/MM3 Basophils # (Auto) 0.0 TH/MM3 CBC Comment DIFF FINAL Differential Comment Blood Urea Nitrogen 19 MG/DL Creatinine 1.27 MG/DL Random Glucose 96 MG/DL Calcium Level 8.5 MG/DL Sodium Level 141 MEQ/L Potassium Level 4.5 MEQ/L Chloride Level 107 MEQ/L Carbon Dioxide Level 25.5 MEQ/L Anion Gap 9 MEQ/L Estimat Glomerular Filtration Rate 55 ML/MIN Medical Decision Making Impression and Plan A: 77 y/o male s/p ACDF by Dr. Vallecillo 11/25/17, CT Soft tissue without hematoma, stable post-op changes Bilateral pneumonia P: cont medical management of pneumonia maintain cervical collar Duoneb q 6 hours PT to ambulate. Piero Gary Nov 28, 2017 19:09
[2017-11-28] MEDS: TAMSULOSIN HCL 0.4 MG CAP PO SCH (21:36)
[2017-11-28] MEDS: ATORVASTATIN 40 MG TAB PO SCH (21:36)
[2017-11-29] VITALS (8 sets, daily range): BP systolic 119–158; BP diastolic 58–86; PULSE 83–96; RESP 14–18; TEMP 97.5–98.6; O2SAT 93–97
[2017-11-29] MEDS: RESP: ALBUTEROL 2.5 MG/IPRATROPIUM 0.5 MG NEB (SCH) NEB ×4 (04:25→21:23)
[2017-11-29] MEDS: LEVOTHYROXINE SODIUM 50 MCG TAB PO SCH (05:23)
--- NOTE | 2017-11-29 07:37 | PD.PN.STU ---
Subjective Remarks Here for follow-up of bilateral pneumonias s/p hospital stay for neurosurgery for cervical stenosis on 11/26. Patient states he had a "bad night." He awakened frequently due to choking on some of his sputum. He was sleeping comfortably in the chair at the time of my visit. Denies fever/chills. Objective Vitals Vital Signs Date Time Temp Pulse Resp B/P (MAP) Pulse Ox O2 Delivery O2 Flow Rate FiO2 11/29/17 05:24 97.5 90 18 158/70 (99) 95 11/29/17 01:17 98.4 86 18 119/58 (78) 96 11/28/17 22:24 96 Nasal Cannula 3.00 11/28/17 21:38 98.1 86 18 147/66 (93) 96 11/28/17 18:33 98.1 90 20 178/77 (110) 96 11/28/17 16:00 80 11/28/17 16:00 97.8 80 21 165/71 (102) 100 11/28/17 12:00 87 11/28/17 12:00 98.5 87 22 126/59 (81) 94 11/28/17 09:08 99 Nasal Cannula 3.00 11/28/17 08:00 82 11/28/17 08:00 98.5 75 19 145/68 (93) 98 I/O 11/28/17 11/28/17 11/28/17 11/29/17 11/29/17 11/29/17 06:59 14:59 22:59 06:59 14:59 22:59 Intake Total 893 ml 1480 ml Output Total 650 ml Balance 243 ml 1480 ml Intake Oral 500 ml 480 ml IV Total 393 ml 1000 ml Output Urine Total 650 ml Stool Total 0 ml # Voids 5 5 # Bowel Movements 0 2 Result Diagram: 11/28/17 0520 11/28/17 0520 Imaging Last Impressions Neck CT 11/27/17 0713 Signed Impressions: Service Date/Time: Monday, November 27, 2017 09:31 - CONCLUSION: Post surgical changes, without hematoma. Nader Moffett MD FACR Chest X-Ray 11/27/17 0555 Signed Impressions: Service Date/Time: Monday, November 27, 2017 06:31 - CONCLUSION: Patchy infiltrates in both lower lungs, left greater than right. Jones Candelario MD CT Angiography 11/27/17 0000 Signed Impressions: Service Date/Time: Monday, November 27, 2017 12:32 - CONCLUSION: 1. No evidence of pulmonary emboli. 2. Bilateral interstitial infiltrates predominantly in the lung bases bilaterally. Adryan Alvares MD Objective Remarks GENERAL: Alert, orientedx3, NAD SKIN: Warm and dry. HEAD: Normocephalic. EYES: No scleral icterus. No injection or drainage. NECK: Supple, trachea midline. No JVD or lymphadenopathy. CARDIOVASCULAR: Regular rate and rhythm without murmurs, gallops, or rubs. RESPIRATORY: Breath sounds equal bilaterally. Slight basilar crackles bilaterally. No accessory muscle use. GASTROINTESTINAL: Abdomen soft, non-tender, nondistended. MUSCULOSKELETAL: No cyanosis, or edema. BACK: Nontender without obvious deformity. No CVA tenderness. A/P Assessment and Plan Mr. Dodge is a pleasant 77 year old male with a history of CAD, DM and a recent ACDF surgery for cervical spinal stenosis who presented to the ED on due to onset of dyspnea and cough. - Sepsis (Tachycardia, tachypnea, pneumonia). - Bilateral pneumonia - CT shows bibasilar infiltrates, with no PE. ABG reveals elevated CO2. - Neck CT consistent with recent surgical changes. - CXR and CT PE shows significant infiltrates L > R. - Switch from IV ceftriaxone and levaquin to PO Levaquin 750 mg daily today - Diabetes mellitus - Continue sliding scale insulin. If needed, will consider long acting insulin. - CAD -- Patient was on aspirin and plavix for 3 years. Guidelines suggest DAPT can be D/Bry after 30 months, aspirin and plavix D/Bry on 11/27. - Hyperlipidemia - Continue statin. - Hypertension - Continue Lisinopril. Creatinine 1.30 appears to be baseline. - Spinal stenosis - recent ACDF. Neurosurgery following. Full code. Lovenox for DVT prophylaxis. Discharge Planning D/C later today or tomorrow after starting PO antibiotics. Will Maldonado M3 Nov 29, 2017 07:37
[2017-11-29] MEDS: INSULIN ASPART SUPPLEMENTAL SCALE SQ SCH ×4 (08:00→21:00)
[2017-11-29] MEDS: SODIUM CHLORIDE 0.9% FLUSH 10 ML FLUSH IV FLUSH SCH ×2 (08:09→21:45)
[2017-11-29] MEDS: LEVOFLOXACIN 750 MG PREMIX INJ 150 ML IV SCH (08:10)
[2017-11-29] MEDS: FUROSEMIDE 20 MG TAB PO SCH (08:10)
[2017-11-29] MEDS: PANTOPRAZOLE SOD 40 MG DELAYED RELEASE TAB PO SCH (08:10)
[2017-11-29] MEDS: FINASTERIDE 5 MG TAB PO SCH (08:11)
[2017-11-29] MEDS: FLUoxetine HCL 10 MG CAP PO SCH (08:11)
[2017-11-29] MEDS: LISINOPRIL 20 MG TAB PO SCH (08:11)
[2017-11-29] MEDS: LEVOFLOXACIN 750 MG TAB PO SCH (09:42)
[2017-11-29] MEDS ORDERED: guaiFENesin E.R. 600 MG TAB PO ONE (10:30)
--- NOTE | 2017-11-29 10:35 | HHI.PR ---
Subjective Remarks Follow-up for bilateral pneumonia. Patient is currently sitting in his chair, on room air. No fever, chills. Objective Vitals Vital Signs Date Time Temp Pulse Resp B/P (MAP) Pulse Ox O2 Delivery O2 Flow Rate FiO2 11/29/17 05:24 97.5 90 18 158/70 (99) 95 11/29/17 01:17 98.4 86 18 119/58 (78) 96 11/28/17 22:24 96 Nasal Cannula 3.00 11/28/17 21:38 98.1 86 18 147/66 (93) 96 11/28/17 18:33 98.1 90 20 178/77 (110) 96 11/28/17 16:00 80 11/28/17 16:00 97.8 80 21 165/71 (102) 100 11/28/17 12:00 87 11/28/17 12:00 98.5 87 22 126/59 (81) 94 I/O 11/28/17 11/28/17 11/28/17 11/29/17 11/29/17 11/29/17 07:00 15:00 23:00 07:00 15:00 23:00 Intake Total 893 ml 1480 ml Output Total 650 ml Balance 243 ml 1480 ml Intake Oral 500 ml 480 ml IV Total 393 ml 1000 ml Output Urine Total 650 ml Stool Total 0 ml # Voids 5 5 # Bowel Movements 0 2 Result Diagram: 11/28/17 0520 11/28/17 0520 Imaging Last Impressions Neck CT 11/27/17 0713 Signed Impressions: Service Date/Time: Monday, November 27, 2017 09:31 - CONCLUSION: Post surgical changes, without hematoma. Nader Moffett MD FACR Chest X-Ray 11/27/17 0555 Signed Impressions: Service Date/Time: Monday, November 27, 2017 06:31 - CONCLUSION: Patchy infiltrates in both lower lungs, left greater than right. Jones Candelario MD CT Angiography 11/27/17 0000 Signed Impressions: Service Date/Time: Monday, November 27, 2017 12:32 - CONCLUSION: 1. No evidence of pulmonary emboli. 2. Bilateral interstitial infiltrates predominantly in the lung bases bilaterally. Adryan Alvares MD Objective Remarks GENERAL: Alert, oriented 3, NAD. SKIN: Warm and dry. HEAD: Normocephalic. EYES: No scleral icterus. No injection or drainage. NECK: Supple, trachea midline. No JVD or lymphadenopathy. CARDIOVASCULAR: Regular rate and rhythm without murmurs, gallops, or rubs. RESPIRATORY: Breath sounds equal bilaterally. No accessory muscle use. Bibasilar crackles. GASTROINTESTINAL: Abdomen soft, non-tender, nondistended. MUSCULOSKELETAL: No cyanosis. 1+ lower extremity edema. BACK: Nontender without obvious deformity. No CVA tenderness. Procedures None A/P Problem List: (1) Sepsis ICD Code: A41.9 - Sepsis, unspecified organism (2) Bilateral pulmonary infiltrates on chest x-ray ICD Code: R91.8 - Other nonspecific abnormal finding of lung field Status: Acute (3) Cervical spinal stenosis ICD Code: M48.02 - Spinal stenosis, cervical region Assessment and Plan Mr. Dodge is a pleasant 77 year old male with a history of CAD, DM and a recent ACDF surgery for cervical spinal stenosis who presented to the ED on 11/27 day after he was discharged form the hospital due to acute onset of dyspnea, cough. CXR, CT chest indicate bibasilar pneumonia. - Sepsis (Tachycardia, tachypnea, pneumonia). - Bilateral pneumonia - PSI score 109 (9.3% mortality, hospitalization recommended). - Patient's Wells score for PE is moderate. Due to sudden onset of symptoms, we obtained CT PE study as well. - CT PE study shows no PE but shows bibasilar infiltrates. ABG reviewed. No hypercapnia. - Neck CT consistent with recent surgical changes. - Imaging studies reviewed by me on 11/27/2017. CXR and CT PE shows significant infiltrates L > R. - We will continue IV Levaquin and ceftriaxone while patient was in the ICU. Will switch to p.o. Levaquin today. - Start Mucinex for cough. - Diabetes mellitus - CAD - Hyperlipidemia - Continue statin. sliding scale insulin. If needed, will consider long acting insulin. - Patient takes metformin at home. Will hold metformin in-patient. - Patient was on aspirin and plavix - took it for 3 years. Since stents were placed 3 years ago, no further need for DAPT. - Pt takes Lasix 20mg at home. Will start start Torsemide 10mg BID. - Hypertension - Continue Lisinopril. Creatinine around 1.30 appears to be baseline. - Spinal stenosis - recent ACDF. Full code. Lovenox 30mg Qday for DVT Prophylaxis. Discharge plan: Potential discharge today with home health. Scottie Cisneros DO Nov 29, 2017 10:35 am
--- NOTE | 2017-11-29 10:36 | HHI.FF ---
Face to Face Verification Diagnosis: (1) Cervical spinal stenosis (2) Sepsis (3) Bilateral pulmonary infiltrates on chest x-ray Physical Therapy Order: Evaluate and Treat, Improve ambulation, Strength and gait training Home Health Nursing Order: Medical education Signs/symptoms of disease process Nursing assessment with vital signs I have seen patient Brianda Dodge on 11/29/17. My clinical findings support the need for the requested home health care services because: Ltd mobility - disease progression Patient has SOB Deconditioned w/ increased weakness Limited ability to care for self Need for psychosocial assistance High risk of falls Infection w/ risk of complications I certify that my clinical findings support that this patient is homebound because: Post-op weakness Unsteady gait/balance Unsafe to leave home unassisted [id number] bed/chair Unable to use public transportation Scottie Cisneros DO Nov 29, 2017 10:36 am
[2017-11-29] MEDS ORDERED: TORS5TAB2 PO (10:39)
[2017-11-29] MEDS ORDERED: ATOR40TA16 PO (10:39)
[2017-11-29] MEDS ORDERED: LEVA750T9 PO (10:39)
[2017-11-29] MEDS: SODIUM CHLOR 0.9% 1000 ML INJ 1,000 ML IV SCH ×2 (12:49→23:18)
[2017-11-29] MEDS: ENOXAPARIN SODIUM 30 MG/0.3 ML SYRINGE SQ SCH (12:50)
[2017-11-29] MEDS: MAGNESIUM HYDROXIDE SUSP 30 ML CUP PO PRN (12:59)
[2017-11-29] MEDS ORDERED: cloNIDine HCL 0.1 MG TAB PO PRN (13:45)
[2017-11-29] MEDS ORDERED: NIFEdipine 30 MG SUSTAINED RELEASE TAB PO ONE (13:45)
[2017-11-29] MEDS: TORSEMIDE 5 MG TAB PO SCH (16:50)
--- NOTE | 2017-11-29 18:19 | HHI.NSPN ---
History Chief Complaint: Productive cough. Interval History Patient status post anterior cervical fusion. Now being treated for postop pneumonia. Reports doing well. Mild shortness of breath. Reports able to move all extremities well Exam Results Vital Signs Date Time Temp Pulse Resp B/P (MAP) Pulse Ox O2 Delivery O2 Flow Rate FiO2 11/29/17 15:14 97 Nasal Cannula 3.00 11/29/17 14:06 93 16 120/86 (97) 11/29/17 08:00 97.8 Physical Examination Alert and awake. Sitting in chair. In [place] J collar. Wound is clean. Neck is soft Medical Decision Making Impression and Plan Patient is doing well and stable Continue IV antibiotics and will increase mobilization Avel Gilliland MD Nov 29, 2017 18:19
[2017-11-29] MEDS: guaiFENesin E.R. 600 MG TAB PO SCH (21:45)
[2017-11-29] MEDS: TAMSULOSIN HCL 0.4 MG CAP PO SCH (21:45)
[2017-11-29] MEDS: ACETAMINOPHEN/HYDROcodone 325 MG/5 MG TAB PO PRN (21:45)
[2017-11-29] MEDS: ATORVASTATIN 40 MG TAB PO SCH (21:45)
[2017-11-30] VITALS (7 sets, daily range): BP systolic 95–146; BP diastolic 56–68; PULSE 76–93; RESP 14–18; TEMP 97.9–98.4; O2SAT 90–98
[2017-11-30] MEDS: RESP: ALBUTEROL 2.5 MG/IPRATROPIUM 0.5 MG NEB (SCH) NEB ×4 (05:14→20:37)
[2017-11-30] MEDS: LEVOTHYROXINE SODIUM 50 MCG TAB PO SCH (06:05)
[2017-11-30] MEDS: FLUoxetine HCL 10 MG CAP PO SCH (08:57)
[2017-11-30] MEDS: FINASTERIDE 5 MG TAB PO SCH (08:57)
[2017-11-30] MEDS: guaiFENesin E.R. 600 MG TAB PO SCH ×2 (08:58→20:54)
[2017-11-30] MEDS: PANTOPRAZOLE SOD 40 MG DELAYED RELEASE TAB PO SCH (08:59)
[2017-11-30] MEDS: LEVOFLOXACIN 750 MG TAB PO SCH (08:59)
[2017-11-30] MEDS: NIFEdipine 30 MG SUSTAINED RELEASE TAB PO SCH (09:00)
[2017-11-30] MEDS: TORSEMIDE 5 MG TAB PO SCH ×2 (09:00→17:03)
[2017-11-30] MEDS: LISINOPRIL 20 MG TAB PO SCH (09:00)
[2017-11-30] MEDS: SODIUM CHLORIDE 0.9% FLUSH 10 ML FLUSH IV FLUSH SCH ×3 (09:01→20:57)
[2017-11-30] MEDS: ACETAMINOPHEN/HYDROcodone 325 MG/5 MG TAB PO PRN ×2 (09:01→20:55)
[2017-11-30] MEDS: INSULIN ASPART SUPPLEMENTAL SCALE SQ SCH ×4 (09:01→20:55)
[2017-11-30] MEDS: SODIUM CHLOR 0.9% 1000 ML INJ 1,000 ML IV SCH (09:32)
[2017-11-30] MEDS: ENOXAPARIN SODIUM 30 MG/0.3 ML SYRINGE SQ SCH (12:57)
--- NOTE | 2017-11-30 15:55 | HHI.PR ---
Subjective Remarks Follow-up for bilateral pneumonia. Patient is doing well, sitting in his chair. Per RN, his O2 sat went down to 89, 90% on room air. He is currently on 2L of O2 via NC. No fever, chills. Objective Vitals Vital Signs Date Time Temp Pulse Resp B/P (MAP) Pulse Ox O2 Delivery O2 Flow Rate FiO2 11/30/17 12:00 98.2 93 16 120/56 (77) 95 11/30/17 08:00 98.0 88 16 132/62 (85) 90 11/30/17 04:39 97.9 76 16 134/61 (85) 93 11/30/17 00:04 98.4 90 14 146/68 (94) 93 11/29/17 21:26 98.0 83 14 146/64 (91) 93 11/29/17 20:00 98.6 88 18 139/65 (89) 93 11/29/17 16:00 98.3 96 18 149/65 (93) 96 I/O 11/29/17 11/29/17 11/29/17 11/30/17 11/30/17 11/30/17 06:59 14:59 22:59 06:59 14:59 22:59 # Voids 1 Result Diagram: 11/28/17 0520 11/28/17 0520 Objective Remarks GENERAL: Alert, oriented 3, NAD. SKIN: Warm and dry. HEAD: Normocephalic. EYES: No scleral icterus. No injection or drainage. NECK: Supple, trachea midline. No JVD or lymphadenopathy. CARDIOVASCULAR: Regular rate and rhythm without murmurs, gallops, or rubs. RESPIRATORY: Breath sounds equal bilaterally. No accessory muscle use. Bibasilar crackles. GASTROINTESTINAL: Abdomen soft, non-tender, nondistended. MUSCULOSKELETAL: No cyanosis. 1+ lower extremity edema. BACK: Nontender without obvious deformity. No CVA tenderness. Procedures None A/P Problem List: (1) Sepsis ICD Code: A41.9 - Sepsis, unspecified organism (2) Bilateral pulmonary infiltrates on chest x-ray ICD Code: R91.8 - Other nonspecific abnormal finding of lung field Status: Acute (3) Cervical spinal stenosis ICD Code: M48.02 - Spinal stenosis, cervical region Assessment and Plan Mr. Dodge is a pleasant 77 year old male with a history of CAD, DM and a recent ACDF surgery for cervical spinal stenosis who presented to the ED on 11/27 day after he was discharged form the hospital due to acute onset of dyspnea, cough. CXR, CT chest indicate bibasilar pneumonia. - Sepsis (Tachycardia, tachypnea, pneumonia). - Bilateral pneumonia - PSI score 109 (9.3% mortality, hospitalization recommended). - Patient's Wells score for PE is moderate. Due to sudden onset of symptoms, we obtained CT PE study as well. - CT PE study shows no PE but shows bibasilar infiltrates. ABG reviewed. No hypercapnia. - Neck CT consistent with recent surgical changes. - Imaging studies reviewed by me on 11/27/2017. CXR and CT PE shows significant infiltrates L > R. - continue PO Levaquin for now. - Mucinex for cough. - CXR in the AM. - Diabetes mellitus - CAD - Hyperlipidemia - Continue statin. sliding scale insulin. If needed, will consider long acting insulin. - Patient takes metformin at home. Will hold metformin in-patient. - Patient was on aspirin and plavix - took it for 3 years. Since stents were placed 3 years ago, no further need for DAPT. - Pt takes Lasix 20mg at home. Continue Torsemide 10mg BID. - Hypertension - Continue Lisinopril. Creatinine around 1.30 appears to be baseline. - Spinal stenosis - recent ACDF. Full code. Lovenox 30mg Qday for DVT Prophylaxis. Discharge plan: [facility] is evaluating patient, they are waiting for insurance approval. Scottie Cisneros DO Nov 30, 2017 3:55 pm
[2017-11-30] MEDS: GABAPENTIN 400 MG CAP PO SCH (17:03)
[2017-11-30] MEDS: MAGNESIUM HYDROXIDE SUSP 30 ML CUP PO PRN (18:39)
--- NOTE | 2017-11-30 19:35 | HHI.NSPN ---
History Chief Complaint: Productive cough. Interval History Patient status post anterior cervical fusion. Now being treated for postop pneumonia. Reports doing well. Reports breathing is improved. Reports able to move all extremities well Exam Results Vital Signs Date Time Temp Pulse Resp B/P (MAP) Pulse Ox O2 Delivery O2 Flow Rate FiO2 11/30/17 16:00 98.3 87 16 133/63 (86) 97 11/29/17 15:14 Nasal Cannula 3.00 Physical Examination Alert and awake. Sitting in chair. In [place] J collar. Wound is clean. Neck is soft. Medical Decision Making Impression and Plan Patient is doing well and stable. Respiratory status improved Continue IV antibiotics and will increase mobilization Avel Gilliland MD Nov 30, 2017 19:35
[2017-11-30] MEDS: TAMSULOSIN HCL 0.4 MG CAP PO SCH (20:54)
[2017-11-30] MEDS: ATORVASTATIN 40 MG TAB PO SCH (20:54)
[2017-12-01] VITALS (7 sets, daily range): BP systolic 95–117; BP diastolic 51–64; PULSE 77–87; RESP 15–18; TEMP 97–97.8; O2SAT 92–95
[2017-12-01] MEDS: RESP: ALBUTEROL 2.5 MG/IPRATROPIUM 0.5 MG NEB (SCH) NEB ×4 (02:49→19:39)
[2017-12-01] MEDS: LEVOTHYROXINE SODIUM 50 MCG TAB PO SCH (06:11)
[2017-12-01] MEDS: FLUoxetine HCL 10 MG CAP PO SCH (07:55)
[2017-12-01] MEDS: GABAPENTIN 400 MG CAP PO SCH ×3 (07:55→17:28)
[2017-12-01] MEDS: PANTOPRAZOLE SOD 40 MG DELAYED RELEASE TAB PO SCH (07:55)
[2017-12-01] MEDS: LISINOPRIL 20 MG TAB PO SCH (07:56)
[2017-12-01] MEDS: LEVOFLOXACIN 750 MG TAB PO SCH (07:56)
[2017-12-01] MEDS: guaiFENesin E.R. 600 MG TAB PO SCH ×2 (07:56→22:06)
[2017-12-01] MEDS: FINASTERIDE 5 MG TAB PO SCH (07:56)
[2017-12-01] MEDS: NIFEdipine 30 MG SUSTAINED RELEASE TAB PO SCH (07:56)
[2017-12-01] MEDS: INSULIN ASPART SUPPLEMENTAL SCALE SQ SCH ×4 (07:57→20:20)
[2017-12-01] MEDS: TORSEMIDE 5 MG TAB PO SCH ×2 (07:57→17:28)
[2017-12-01] MEDS: SODIUM CHLORIDE 0.9% FLUSH 10 ML FLUSH IV FLUSH SCH ×2 (07:59→22:07)
--- NOTE | 2017-12-01 09:05 | RADRPT ---
EXAM DATE/TIME: 12/01/2017 08:30 [place] COMPARISON: CHEST SINGLE AP, November 27, 2017, 6:31. INDICATIONS : Shortness of breath. Cough. MEDICAL HISTORY : None. SURGICAL HISTORY : Coronary artery stent. ENCOUNTER: Subsequent ACUITY: 1 week PAIN SCORE: 0/10 LOCATION: Bilateral chest FINDINGS: Bibasilar patchiness is noted consistent with atelectasis and/or infiltrates. The heart is enlarged. Degenerative changes are noted throughout the thoracic spine. CONCLUSION: Bibasilar patchiness consistent with atelectasis and/or infiltrates. Cardiomegaly. Degenerative singh es are noted throughout the thoracic spine. Clinton Hoskins MD on December 01, 2017 at 9:02 Board Certified Radiologist. This report was verified electronically.
[2017-12-01] MEDS: ENOXAPARIN SODIUM 30 MG/0.3 ML SYRINGE SQ SCH (13:03)
--- NOTE | 2017-12-01 14:31 | HHI.NSPN ---
History Chief Complaint: Productive cough. Interval History Patient status post anterior cervical fusion. Now being treated for postop pneumonia. Reports doing well. Reports breathing is improved. Reports able to move all extremities well. Complains of tiredness. Wants to go home Exam Results Vital Signs Date Time Temp Pulse Resp B/P (MAP) Pulse Ox O2 Delivery O2 Flow Rate FiO2 12/01/17 12:00 97.8 79 16 117/53 (74) 93 12/01/17 09:00 21 11/29/17 15:14 Nasal Cannula 3.00 Physical Examination Alert and awake. Sitting in chair. Talking with visiting friends. In [place] J collar. Wound is clean. Neck is soft. Moves all extremities well Medical Decision Making Impression and Plan Patient is doing well and stable. Respiratory status improved Continue IV antibiotics and will increase mobilization Avel Gilliland MD Dec 01, 2017 14:31
--- NOTE | 2017-12-01 16:27 | HHI.PR ---
Subjective Remarks Follow-up for bilateral pneumonia. Patient is currently doing well. No acute concerns. Currently on room air. Sitting in his chair. Overall, he feels better. Objective Vitals Vital Signs Date Time Temp Pulse Resp B/P (MAP) Pulse Ox O2 Delivery O2 Flow Rate FiO2 12/01/17 12:00 97.8 79 16 117/53 (74) 93 12/01/17 09:00 94 21 12/01/17 08:00 97.3 87 16 117/64 (81) 94 12/01/17 04:00 97.0 77 15 117/58 (77) 95 11/30/17 20:38 98 21 11/30/17 20:00 98.0 84 18 95/56 (69) 95 I/O 11/30/17 11/30/17 11/30/17 12/01/17 12/01/17 12/01/17 07:00 15:00 23:00 07:00 15:00 23:00 # Voids 5 4 # Bowel Movements 1 Result Diagram: 11/28/1751911/28/17 05 Objective Remarks GENERAL: Alert, oriented 3, NAD. SKIN: Warm and dry. HEAD: Normocephalic. EYES: No scleral icterus. No injection or drainage. NECK: Supple, trachea midline. No JVD or lymphadenopathy. CARDIOVASCULAR: Regular rate and rhythm without murmurs, gallops, or rubs. RESPIRATORY: Breath sounds equal bilaterally. No accessory muscle use. Bibasilar crackles. GASTROINTESTINAL: Abdomen soft, non-tender, nondistended. MUSCULOSKELETAL: No cyanosis. 1+ lower extremity edema. BACK: Nontender without obvious deformity. No CVA tenderness. Procedures None A/P Problem List: (1) Sepsis ICD Code: A41.9 - Sepsis, unspecified organism (2) Bilateral pulmonary infiltrates on chest x-ray ICD Code: R91.8 - Other nonspecific abnormal finding of lung field Status: Acute (3) Cervical spinal stenosis ICD Code: M48.02 - Spinal stenosis, cervical region Assessment and Plan Mr. Dodge is a pleasant 77 year old male with a history of CAD, DM and a recent ACDF surgery for cervical spinal stenosis who presented to the ED on 11/27 day after he was discharged form the hospital due to acute onset of dyspnea, cough. CXR, CT chest indicate bibasilar pneumonia. - Sepsis (Tachycardia, tachypnea, pneumonia). - Bilateral pneumonia - PSI score 109 (9.3% mortality, hospitalization recommended). - Patient's Wells score for PE is moderate. Due to sudden onset of symptoms, we obtained CT PE study as well. - CT PE study shows no PE but shows bibasilar infiltrates. ABG reviewed. No hypercapnia. - Neck CT consistent with recent surgical changes. - Imaging studies reviewed by me on 11/27/2017. CXR and CT PE shows significant infiltrates L > R. - continue PO Levaquin for now. - Mucinex for cough. - CXR from 12/01/2017 reviewed no acute changes. Shows possible atelectasis. Encourage incentive spirometry. - Diabetes mellitus - CAD - Hyperlipidemia - Continue statin. sliding scale insulin. If needed, will consider long acting insulin. - Patient takes metformin at home. Will hold metformin in-patient. - Patient was on aspirin and plavix - took it for 3 years. Since stents were placed 3 years ago, no further need for DAPT. - Pt takes Lasix 20mg at home. Continue Torsemide 10mg BID. - Hypertension - Continue Lisinopril. Creatinine around 1.30 appears to be baseline. - Spinal stenosis - recent ACDF. Full code. Lovenox 30mg Qday for DVT Prophylaxis. Discharge plan: [place] [facility] is evaluating patient, they are waiting for insurance approval. Possible discharge 12/02/2017. Scottie Cisneros DO Dec 01, 2017 16:27
[2017-12-01] MEDS: ACETAMINOPHEN/HYDROcodone 325 MG/5 MG TAB PO PRN (17:29)
[2017-12-01] MEDS: ATORVASTATIN 40 MG TAB PO SCH (22:06)
[2017-12-01] MEDS: TAMSULOSIN HCL 0.4 MG CAP PO SCH (22:06)
[2017-12-02] VITALS: BP 112/56; PULSE 78; RESP 18; TEMP 97.4; O2SAT 95
[2017-12-02] MEDS: RESP: ALBUTEROL 2.5 MG/IPRATROPIUM 0.5 MG NEB (SCH) NEB (04:09)
[2017-12-02 06:00] VITALS: BP 90/53; PULSE 72; RESP 18; TEMP 98.6; O2SAT 96
[2017-12-02] MEDS: LEVOTHYROXINE SODIUM 50 MCG TAB PO SCH (06:12)
--- NOTE | 2017-12-02 07:46 | PD.PN.STU ---
Subjective Remarks Followup for bilateral pneumonia. Patient reports some episodes of dizziness last night. No other acute concerns. Resting comfortably on 2L O2 by nasal cannula. Denies fever, chills. Objective Vitals Vital Signs Date Time Temp Pulse Resp B/P (MAP) Pulse Ox O2 Delivery O2 Flow Rate FiO2 12/02/17 06:00 98.6 72 18 90/53 (65) 96 12/02/17 00:00 97.4 78 18 112/56 (74) 95 12/01/17 20:00 91 Nasal Cannula 2.00 12/01/17 20:00 97.8 83 18 116/58 (77) 95 12/01/17 19:41 92 21 12/01/17 16:00 97.3 81 16 95/51 (66) 93 12/01/17 12:00 97.8 79 16 117/53 (74) 93 12/01/17 09:00 94 21 12/01/17 08:00 97.3 87 16 117/64 (81) 94 I/O 12/01/17 12/01/17 12/01/17 12/02/17 12/02/17 12/02/17 07:00 15:00 23:00 07:00 15:00 23:00 # Voids 4 4 # Bowel Movements 1 1 Result Diagram: 11/28/17 0520 11/28/17 0520 Imaging Last Impressions Chest X-Ray 12/01/17 0800 Signed Impressions: Service Date/Time: Friday, December 01, 2017 08:30 - CONCLUSION: Bibasilar patchiness consistent with atelectasis and/or infiltrates. Cardiomegaly. Degenerative changes are noted throughout the thoracic spine. Clinton Hoskins MD Neck CT 11/27/17 0713 Signed Impressions: Service Date/Time: Monday, November 27, 2017 09:31 - CONCLUSION: Post surgical changes, without hematoma. Nader Moffett MD FACR CT Angiography 11/27/17 0000 Signed Impressions: Service Date/Time: Monday, November 27, 2017 12:32 - CONCLUSION: 1. No evidence of pulmonary emboli. 2. Bilateral interstitial infiltrates predominantly in the lung bases bilaterally. Adryan Alvares MD Objective Remarks GENERAL: Alert, oriented x3, NAD SKIN: Warm and dry. HEAD: Normocephalic. EYES: No scleral icterus. No injection or drainage. NECK: Supple, trachea midline. No JVD or lymphadenopathy. CARDIOVASCULAR: Regular rate and rhythm without murmurs, gallops, or rubs. RESPIRATORY: Breath sounds equal bilaterally. Bibasilar crackles. No accessory muscle use. GASTROINTESTINAL: Abdomen soft, non-tender, nondistended. MUSCULOSKELETAL: No cyanosis, or edema. BACK: Nontender without obvious deformity. No CVA tenderness. A/P Assessment and Plan Mr. Dodge is a pleasant 77 year old male with a history of CAD, DM and a recent ACDF surgery for cervical spinal stenosis who presented to the ED on due to onset of dyspnea and cough. - Sepsis (Tachycardia, tachypnea, pneumonia). - Bilateral pneumonia - CT shows bibasilar infiltrates, with no PE. ABG reveals elevated CO2. - Neck CT consistent with recent surgical changes. - CXR and CT PE shows significant infiltrates L > R. -repeat CXR 12/01/17 shows bibasilar patichiness, possible atelectasis. Incentive spirometry encouraged. - Continue levaquin to PO Levaquin 750 mg daily -Continue mucinex for cough - Diabetes mellitus - Continue sliding scale insulin. If needed, will consider long acting insulin. - CAD -- Patient was on aspirin and plavix for 3 years. Guidelines suggest DAPT can be D/Bry after 30 months, aspirin and plavix D/Bry on 11/27. - Hyperlipidemia - Continue statin. - Hypertension - Continue Lisinopril. Creatinine 1.30 appears to be baseline. - Spinal stenosis - recent ACDF. Neurosurgery following. Full code. Lovenox for DVT prophylaxis. [facility], awaiting insurance approval Will Maldonado M3 Dec 02, 2017 07:46
[2017-12-02] MEDS: INSULIN ASPART SUPPLEMENTAL SCALE SQ SCH (08:00)
[2017-12-02 08:39] VITALS: BP 98/49; PULSE 75; RESP 18; TEMP 97.9; O2SAT 94
[2017-12-02 09:01] VITALS: O2SAT 98
[2017-12-02] MEDS: guaiFENesin E.R. 600 MG TAB PO SCH (09:19)
[2017-12-02] MEDS: GABAPENTIN 400 MG CAP PO SCH (09:19)
[2017-12-02] MEDS: FLUoxetine HCL 10 MG CAP PO SCH (09:20)
[2017-12-02] MEDS: TORSEMIDE 5 MG TAB PO SCH (09:20)
[2017-12-02] MEDS: LEVOFLOXACIN 750 MG TAB PO SCH (09:20)
[2017-12-02] MEDS: FINASTERIDE 5 MG TAB PO SCH (09:20)
[2017-12-02] MEDS: PANTOPRAZOLE SOD 40 MG DELAYED RELEASE TAB PO SCH (09:20)
[2017-12-02] MEDS: SODIUM CHLORIDE 0.9% FLUSH 10 ML FLUSH IV FLUSH SCH (09:21)
[2017-12-02] MEDS: NIFEdipine 30 MG SUSTAINED RELEASE TAB PO SCH (09:22)
[2017-12-02] MEDS: LISINOPRIL 20 MG TAB PO SCH (09:22)
[2017-12-02] MEDS ORDERED: NEUR400C PO (09:33)
[2017-12-02] MEDS ORDERED: TORS5TAB2 PO (09:33)
[2017-12-02] MEDS ORDERED: LEVA750T9 PO (09:33)
--- NOTE | 2017-12-02 09:35 | HHI.DS ---
Discharge Summary Admission Date Nov 27, 2017 at 11:27 am Discharge Date: Dec 02, 2017 Admitting Diagnosis bilateral pneumonia (1) Sepsis ICD Code: A41.9 - Sepsis, unspecified organism (2) Bilateral pulmonary infiltrates on chest x-ray ICD Code: R91.8 - Other nonspecific abnormal finding of lung field Status: Acute (3) Cervical spinal stenosis ICD Code: M48.02 - Spinal stenosis, cervical region Status: Acute Procedures None Brief History - From Admission Mr. Dodge is a pleasant 77-year-old male with a history of CAD status post stents, hypercholesterolemia, hypothyroidism who presented to the emergency department on 11/27/2017 due to sudden onset of difficulty breathing and left facial pain. Patient underwent ACDF surgery by Dr. Vallecillo (Neurosurgery) for cervical spinal stenosis on 11/25/2017. Patient was discharged on 11/26/2017. I evaluated patient on 11/26/2017 as well prior to discharging patient. Patient did not have any fever or chills or dyspnea. However, around 3 or 4AM, per patient's , he started having significant difficulty breathing, and sputum production as well. He did not have any fever. Denies any chest pain, abdominal pain. No changes in bowel or bladder habits. Incidentally, he recently underwent a skin biopsy of his left ear and he was told that skin biopsy is consistent with malignancy - however, we do not know if it is melanoma. He complained of left facial pain prior to coming to the hospital as well. At the time of this interview, he is somewhat somnolent but answers questions. He reports difficulty breathing. Currently on nasal cannula. CBC/BMP: 11/28/17 0520 11/28/17 05 Imaging Last Impressions Chest X-Ray 12/01/17 0800 Signed Impressions: Service Date/Time: Friday, December 01, 2017 08:30 - CONCLUSION: Bibasilar patchiness consistent with atelectasis and/or infiltrates. Cardiomegaly. Degenerative changes are noted throughout the thoracic spine. Clinton Hoskins MD Neck CT 11/27/17 0730 Signed Impressions: Service Date/Time: Monday, November 27, 2017 09:31 - CONCLUSION: Post surgical changes, without hematoma. Nader Moffett MD FACR CT Angiography 11/27/17 0000 Signed Impressions: Service Date/Time: Monday, November 27, 2017 12:32 - CONCLUSION: 1. No evidence of pulmonary emboli. 2. Bilateral interstitial infiltrates predominantly in the lung bases bilaterally. Adryan Alvares MD PE at Discharge GENERAL: Alert, oriented 3, NAD. SKIN: Warm and dry. HEAD: Normocephalic. EYES: No scleral icterus. No injection or drainage. NECK: Supple, trachea midline. No JVD or lymphadenopathy. CARDIOVASCULAR: Regular rate and rhythm without murmurs, gallops, or rubs. RESPIRATORY: Breath sounds equal bilaterally. No accessory muscle use. Bibasilar crackles. GASTROINTESTINAL: Abdomen soft, non-tender, nondistended. MUSCULOSKELETAL: No cyanosis. 1+ lower extremity edema. BACK: Nontender without obvious deformity. No CVA tenderness. Pt update on day of discharge Patient is doing well. Sitting in his chair. No acute concerns. No fever, chills , SOB, CP. Hospital Course Mr. Dodge is a pleasant 77 year old male with a history of CAD, DM and a recent ACDF surgery for cervical spinal stenosis who presented to the ED on 11/27 day after he was discharged form the hospital due to acute onset of dyspnea, cough. CXR, CT chest indicate bibasilar pneumonia. - Sepsis (Tachycardia, tachypnea, pneumonia). - Bilateral pneumonia - PSI score 109 (9.3% mortality, hospitalization recommended). - Patient's Wells score for PE is moderate. Due to sudden onset of symptoms, we obtained CT PE study as well. - CT PE study shows no PE but shows bibasilar infiltrates. ABG reviewed. No hypercapnia. - Neck CT consistent with recent surgical changes. - Imaging studies reviewed by me on 11/27/2017. CXR and CT PE shows significant infiltrates L > R. - continue PO Levaquin for now. - Mucinex for cough. - CXR from 12/01/2017 reviewed no acute changes. Shows possible atelectasis. Encourage incentive spirometry. - Diabetes mellitus - CAD - Hyperlipidemia - Continue statin. sliding scale insulin. If needed, will consider long acting insulin. - Patient takes metformin at home. Will hold metformin in-patient. - Patient was on aspirin and plavix - took it for 3 years. Since stents were placed 3 years ago, no further need for DAPT. - Pt takes Lasix 20mg at home. Continue Torsemide 10mg BID. - Hypertension - Continue Lisinopril. Creatinine around 1.30 appears to be baseline. - Spinal stenosis - recent ACDF. Full code. Lovenox 30mg Qday for DVT Prophylaxis. Pt Condition on Discharge: Good Discharge Disposition: Rehab Inpatient Discharge Time: > 30 minutes Discharge Instructions DIET: Follow Instructions for: Heart Healthy Diet Activities you can perform: Regular-No Restrictions Follow up Referrals: Cardiology - 2 Weeks with Riley Salinas MD PCP Follow-up - 1 Week New Medications: Atorvastatin (Atorvastatin) 40 Mg Tab 40 MG PO HS for Cholesterol Management, #90 TAB 3 Refills Gabapentin (Neurontin) 400 Mg Cap 400 MG PO TID for Pain Management, #90 CAP Levofloxacin (Levaquin) 750 Mg Tablet 750 MG PO DAILY for Infection, #3 TAB Torsemide (Torsemide) 5 Mg Tab 10 MG PO BID@09,18 for Fluid, #60 TAB Hold if systolic BP < 110 Continued Medications: Apremilast (Otezla) 30 Mg Tab Docusate Sodium (Dok) 100 Mg Cap 100 MG PO BID, #60 CAP Finasteride (Finasteride) 5 Mg Tab 5 MG PO DAILY for Manage Prostate Problems, #30 TAB 0 Refills Do not crush. Fluoxetine (Fluoxetine) 10 Mg Tab 1 TAB PO DAILY Levothyroxine (Levothyroxine) 50 Mcg Tab 50 MCG PO DAILY for Thyroid, #30 TAB 0 Refills Metformin (Metformin) 500 Mg Tab 500 MG PO DAILY for Blood Sugar Management, #30 TAB 0 Refills With a meal Nitroglycerin SL (Nitroglycerin SL) 0.4 Mg Subl 0.4 MG SL DIRECTED PRN for CHEST PAIN, #100 TAB.SL 0 Refills ONE TABLET UNDER THE TONGUE NEEDED FOR CHEST PAIN, MAY REPEAT EVERY FIVE MINUTES FOR A TOTAL OF 3 DOSES OR CALL 911 IF NO RELIEF Pantoprazole (Pantoprazole) 40 Mg Tab 40 MG PO DAILY for Reflux, #30 TAB 0 Refills Potassium Chloride ER (Potassium Chloride ER) 10 Meq Tab 10 MEQ PO DAILY for Electrolyte Replacement, #30 TAB 0 Refills Tamsulosin (Tamsulosin) 0.4 Mg Cap 0.4 MG PO HS for Manage Prostate Problems, #30 CAP 0 Refills Tramadol (Tramadol) 50 Mg Tab 50 MG PO Q4H PRN for PAIN, TAB 0 Refills Discontinued Medications: Allopurinol (Allopurinol) 100 Mg Tab 100 MG PO DAILY for Gout, #30 TAB 0 Refills Furosemide (Furosemide) 20 Mg Tab 20 MG PO DAILY, #30 TAB 0 Refills Gabapentin (Neurontin) 800 Mg Tab 800 MG PO BID, #90 TAB 0 Refills Lisinopril (Lisinopril) 20 Mg Tab 20 MG PO DAILY, #30 TAB 0 Refills Scottie Cisneros DO Dec 02, 2017 09:35
== END 2017-12-02 12:33 | DRG 871 ==
LOC: NEPE 05:14 → NEDA 11:27 → HIMN 16:00 → N05A 11-28 18:00
PROVIDERS: ADMIT Hospitalist; ATTEND Hospitalist
DX: A41.9 Sepsis, unspecified organism (principal); J18.9 Pneumonia, unspecified organism; E11.9 Type 2 diabetes mellitus without complications; I25.10 Atherosclerotic heart disease of native coronary artery without angina pectoris; E78.5 Hyperlipidemia, unspecified; I10 Essential (primary) hypertension; E03.9 Hypothyroidism, unspecified; R51 Headache; L40.9 Psoriasis, unspecified; M54.5 Low back pain; G89.29 Other chronic pain; M19.90 Unspecified osteoarthritis, unspecified site; K21.9 Gastro-esophageal reflux disease without esophagitis; M10.9 Gout, unspecified; Z98.1 Arthrodesis status; Z79.84 Long term (current) use of oral hypoglycemic drugs; Z95.5 Presence of coronary angioplasty implant and graft
CPT/HCPCS: 36600; 70491; 71045; 71275; 72040; 76000; 80048; 80053; 82550; 82552; 82805; 82948; 83605; 83735; 83880; 84484; 85025; 85610; 85730; 87040; 93005; 94150; 94640; 94664; 96365; 96368; 96375; J0456; J0696; J1650; J1815; J1956; J2270; J2405; J3475; J7030; J7050; Q9967